=== PATIENT | female | born 1950 | race Caucasian/White ===

== ENCOUNTER 2016-08-28 13:58 | Inpatient (IN) | payer OTHER ==
[~2016-08-28] VITALS: Ht 157.5 cm; Wt 81.6 kg
[~2016-08-28 13:58] MED LIST: ACYCLOVIR400 M1 PO; ALPRAZOLAM1 MG PO; AUGMENTIN 875-1 EACH PO; AVELOX400 M1 PO; CALCIUM 600600 M1 PO; CHLORASEPTI1 LOZ/PAC PO; COLACE100 M1 PO; COZAAR 100MG T100 MG PO; DEXAMETHASONE4 M1 PO; DEXAMETHASONE4 MG PO; DILAUDID2 MG PO; FOLIC ACID 1 MG PO; GABAPENTIN300 M2 PO; HYDROCODONE/ACE1 TA1 PO; HYDROMORPHONE HY4 MG PO; HYDROXYZINE HCL10 MG PO; KEFLEX500 MG PO; MAALOX PLUS30 ML PO; MOXIFLOXACIN H400 M2 PO; NAPROXEN500 MG PO; NORVASC 10MG10 MG PO; NYSTATIN100000 UNI PO; OMEPRAZOLE40 M1 PO; OXYCODONE HCL10 M2 PO; OXYCODONE HCL10 MG PO; OXYCODONE HCL5 M1 PO; OXYCODONE HCL5 M2 PO; OXYCONTIN10 MG PO; OXYCONTIN15 M1 PO; OXYCONTIN40 M1 PO; OXYCONTIN60 M1 PO; PANCRELIPASE PO; PERCOCET 325 MG1 TA2 PO; PREDNISONE20 M1 PO; PRILOSEC 20MG C20 MG PO; PROAIR HFA8.5 GM INH; REXULTI1 MG PO; RISPERIDONE0.5 MG PO; SERTRALINE HYD100 MG PO; SYMBICORT 16010.2 GM INH; TRAMADOL HCL50 MG PO; VALIUM2 MG PO; VALIUM5 MG PO; VITAMIN B122500 MC2 PO; VITAMIN D250000 UNIT PO
--- NOTE | 2016-08-28 14:00 | NUR ---
PATIENT DIRECTLY TO EKG ALCOVE.
--- NOTE | 2016-08-28 14:07 | NUR ---
TRIAGE: 65 Y/O FEMALE PRESENTS C/O SOB INCREASING RECENTLY. ROOM AIR SPO2 85-87%. APPEARS WINDED, SOB, AND PALE. EKG COMPLETED.
--- NOTE | 2016-08-28 14:17 | NUR ---
PT BROUGHT TO RM 12 VIA WHEELCHAIR. 02 90-92% ON RA AT REST. LESS SOB AT REST BUT INCREASED WITH EXERTION. BREATH SOUNDS DIMINISHED
--- NOTE | 2016-08-28 14:28 | ED DYSPNEA/ASTHMA COMPLAINT ---
History of Present Illness General Chief Complaint: Dyspnea (COPD, CHF, Other) Stated Complaint: SOB Source: patient, family, old records Exam Limitations: no limitations Vital Signs & Intake/Output Vital Signs & Intake/Output Vital Signs Date Time Temp Pulse Resp B/P Pulse O2 O2 Flow FiO2 Ox Delivery Rate 08/28 1832 98.0 105 18 146/78 100 Room Air 08/28 1652 98.8 89 20 122/77 98 Nasal 3.0L Cannula 08/28 1455 94 Nasal 3.0L Cannula 08/28 1430 95 24 97 Nasal 3.0L Cannula 08/28 1415 91 Room Air 08/28 1406 97.9 83 16 120/85 87 Room Air Room Air Allergies Coded Allergies: morphine (ITCHING 10/03/15) Reconcile Medications Albuterol Sulfate (Proair Hfa) 8.5 GM HFA.AER.AD 2 PUF INH PRN RESPIRATORY ( Reported) Alprazolam 1 MG TABLET 1 TAB PO BID ANXIETY Amlodipine (Norvasc 10MG) 10 MG TAB 1 TAB PO DAILY BP Brexpiprazole (Rexulti) 1 MG TABLET 1 TAB PO DAILY MENTAL HEALTH (Reported) Budesonide/Formoterol Fumarate (Symbicort 160-4.5 Mcg Inhaler) 10.2 GM HFA.AER.AD 2 PUF INH BID RESPIRATORY (Reported) Calcium Carbonate (Calcium 600) 600 MG TAB 1 TAB PO DAILY SUPPLEMENT Cyanocobalamin (Vitamin B-12) (Vitamin B12) 2,500 MCG TAB.CHEW 1,000 MCG PO DAILY SUPPLEMENT (Reported) Dexamethasone 4 MG TABLET 0.5 TAB PO EOD STEROID (Reported) Reason to Stop at ADM: on iv steroids Docusate Sodium (Colace) 100 MG CAPSULE 2 CAP PO DAILY constipation (Reported ) Ergocalciferol (Vitamin D2) (Vitamin D2) 50,000 UNIT CAPSULE 1 CAP PO QWED SUPPLEMENT (Reported) Folic Acid 1 MG TABLET 1 MG PO DAILY FOLIC ACID SUPPLEMENT (Reported) Gabapentin 300 MG CAPSULE 1 CAP PO QPM TREMORS (Reported) LIPASE/PROTEASE/AMYLASE (Pancrelipase Dr 5,000 Unit Cap) [id number] CAPSULE. 1 CAP PO TID PANCREASE (Reported) Losartan (Cozaar) 100 MG TAB 1 TAB PO DAILY BP Omeprazole 40 MG CAPSULE.DR 1 CAP PO DAILY GI (Reported) Oxycodone HCl (Oxycontin) 40 MG TAB.ER.12H 1 TAB PO BID PAIN (Reported) Oxycodone HCl 5 MG CAPSULE 1 CAP PO Q6 PRN back pain (Reported) Oxycodone HCl 5 MG TABLET 5 MG PO Q6P PRN PAIN SCALE 7-10 (SEVERE) Potassium Chloride 10 MEQ TAB.ER.PRT 1 TAB PO DAILY SUPPLEMENT (Reported) SERTRALINE HCL (Sertraline Hydrochloride) 100 MG TABLET 1 TAB PO BID ANXIETY (Reported) Triage Note: TRIAGE: 65 Y/O FEMALE PRESENTS C/O SOB INCREASING RECENTLY. ROOM AIR SPO2 85-87%. APPEARS WINDED, SOB, AND PALE. EKG COMPLETED. Triage Nurses Notes Reviewed? yes Onset: Gradual Duration: getting worse Timing: recent history Severity: severe Prior Episodes/Possible Cause: frequent episodes, chronic episodes HPI: Patient is a 65-year-old female with a past medical history of multiple myeloma last chemotherapy administration was Tuesday. Patient's oncologist is Dr. Rodriguez, chronic back pain due to herniated disc, anxiety, depression, previous alcohol dependency, hypertension, pancreatitis, alcoholic hepatitis, diverticulitis, respiratory failure, anemia who is a former smoker not on home O2 who presents emergency room for concerns of dyspnea and nonproductive cough and severe dyspnea on exertion. Patient took her inhaler medications with no relief of symptoms. It is noted through old records that Dr. Thakur was concerned of a common patient of opiate-induced respiratory failure however the who is present states that no opiates were administered today however it is unknown at this time, which opiates was administered last night. is also concerned with intermittent drowsiness and increased sleep patterns. Patient denies fevers chills chest pain arm pain jaw pain nausea vomiting. Denies any new leg swelling. Patient also states that she was evaluated earlier this week by her primary care doctor in which he was concerned of pneumonia however patient did not pick up operator prescriptions for this, especially her antibiotic (JOVANY RAMIREZ) Past History Travel History Traveled to [place] past 21 day No Medical History Any Pertinent Medical History? 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 Other Medical Hx: Patient has also had a nonspecific dermatitis with topical therapy History of MRSA: No History of VRE: No History of CDIFF: No Pneumonia Vaccine: 04/08/15 Influenza Vaccine: 05/07/16 Tetanus Vaccine: 04/18/15 Surgical History Surgical History: laminectomy toe amputation bilaterally due to deformity Psychosocial History Who do you live with Spouse Services at Home None What is your primary language Mexican Tobacco Use: Refused to answer ETOH Use: denies use Illicit Drug Use: denies illicit drug use Family History Family History, If Any: Relation not specified for: *No pertinent family history Hx Contributory? No (JOVANY RAMIREZ) Review of Systems Review of Systems Constitutional: Reports: no symptoms. EENTM: Reports: no symptoms. Respiratory: Reports: see HPI, cough, short of breath. Cardiovascular: Reports: no symptoms. GI: Reports: no symptoms. Genitourinary: Reports: no symptoms. Musculoskeletal: Reports: no symptoms. Skin: Reports: no symptoms. Neurological/Psychological: Reports: no symptoms. Hematologic/Endocrine: Reports: no symptoms. Immunologic/Allergic: Reports: no symptoms. All Other Systems: Reviewed and Negative (JOVANY RAMIREZ) Physical Exam Physical Exam General Appearance: no apparent distress, alert, comfortable Respiratory: chest non-tender, no respiratory distress, BILATERAL EXPIRATORY WHEEZING Comments: HEENT: Normal EENT exam, extraocular motion intact, no nystagmus. Pupils equally round and reactive to light and accommodation. Nose is atraumatic. External auditory canal and Tympanic membranes clear. Pharynx normal. No swelling or edema. Neck: Supple, no lymphadenopathy, normal range of motion without pain or tenderness Back: Nontender, no CVA tenderness. Cardiovascular: TACHYCARDIA WITH no murmurs rubs or gallops, normal JVP Respiratory: Chest nontender. No respiratory distress.breath sounds clear to auscultation bilaterally Abdomen: Soft, nontender nondistended, no appreciable organomegaly. Normal bowel sounds. No ascites Extremity: Bilateral trace pitting edema noted to lower extremity, no calf tenderness to palpation, normal and equal pulses. Neuro: Alert oriented x3, motor sensory normal, cranial nerves II through XII grossly intact. Skin: No appreciable rash on exposed skin, skin is warm and dry. Psych: Mood and affect is normal, memory and judgment is normal. Core Measures ACS in differential dx? No Severe Sepsis Present: No Septic Shock Present: No (LALITA MERA,JOVANY) Progress Differential Diagnosis: asthma, AMI, bronchitis, costochondritis, CHF, COPD, musculoskeletal pain, pericarditis, pulmonary embolism, pneumonia, pneumothorax, rib fracture, unstable angina, OPIATE DEPENDENCY Plan of Care: Orders Procedure Date/time Status Regular Diet 08/29 B Active BASIC ELECTROLYTES PLUS BUN&CR 08/29 0600 Active Pathway - chart 08/28 1833 Active House Staff 08/28 1833 Active Patient Data 08/28 1833 Active STREP PNEUMO URINARY ANTIGEN 08/28 1833 Active LEGIONELLA URINARY ANTIGEN 08/28 1833 Active Code Status 08/28 1833 Active LACTIC ACID 08/28 1737 Active Admit to inpatient 08/28 1731 Active LOWER RESPIRATORY CULTURE 08/28 1726 Active LACTIC ACID 08/28 1437 Complete ARTERIAL BLOOD GAS (GEN) 08/28 1434 Active Telemetry/Carbide Die Maker 08/28 1434 Active BLOOD CULTURE 08/28 1434 Active URINE DRUG SCREEN FOR ER ONLY 08/28 1434 Complete URINALYSIS 08/28 1434 Complete TROPONIN LEVEL 08/28 1434 Complete MAGNESIUM 08/28 1434 Complete LIPASE 08/28 1434 Complete ETHANOL 08/28 1434 Complete D-DIMER 08/28 1434 Complete COMPREHENSIVE METABOLIC PANEL 08/28 1434 Complete CBC WITHOUT DIFFERENTIAL 08/28 1434 Complete B-TYPE NATRIURETIC PEP (BNP) 08/28 1434 Complete AMYLASE 08/28 1434 Complete EKG 08/28 1359 Active VTE Mechanical Prophylaxis 08/28 UNK Active Current Medications Sig/Greg Start time Last Medication Dose Stop Time Status Admin Ceftriaxone Sodium 1,000 MG DAILY 08/29 1000 UNVr (Rocephin) Enoxaparin Sodium 40 MG DAILY 08/29 1000 UNVr (Lovenox) Acetaminophen 650 MG Q6P PRN 08/28 1830 UNVr (Tylenol) Laboratory Tests 08/28/16 1610: Urine Opiates Screen 934.00, Methadone Screen < 40, Barbiturate Screen < 60, Ur Phencyclidine Scrn < 6.00, Amphetamines Screen < 100, U Benzodiazepines Scrn > 800 H, Urine Cocaine Screen < 50, Urine Cannabis Screen < 5.00, Urine Color YEL , Urine Clarity CLEAR, Urine pH 6.5, Ur Specific [place] 1.015, Urine Protein NEG, Urine Ketones NEG, Urine Nitrite NEG, Urine Bilirubin NEG, Urine Urobilinogen 0.2, Ur Leukocyte Esterase NEG, Ur Microscopic EXAM NOT REQUIRED, Urine Hemoglobin NEG, Urine Glucose NEG 08/28/16 1513: Anion Gap 8, Estimated GFR > 60, BUN/Creatinine Ratio 15.0, Glucose 97, Calcium 7.9 L, Magnesium 1.8, Total Bilirubin 0.3, AST 15, ALT 30, Alkaline Phosphatase 49, Troponin I < 0.01, Mnb-K-Xterznnmtki Pept 186 H, Total Protein 6.0 L, Albumin 3.6, Globulin 2.4, Albumin/Globulin Ratio 1.5, Amylase < 30 L, Lipase < 10 L, D-Dimer < 200, CBC w Diff NO MAN DIFF REQ, RBC 3.74 L, MCV 72.3 L, MCH 22.7 L, RDW 18.6 H, MPV 8.0, Gran % 86.3 H, Lymphocytes % 5.5 L, Monocytes % 6.7, Eosinophils % 1.2, Basophils % 0.3, Absolute Granulocytes 5.8, Absolute Lymphocytes 0.4 L, Absolute Monocytes 0.5, Absolute Eosinophils 0.1, Absolute Basophils 0, PUBS MCHC 31.4 L, Serum Alcohol < 10.0 08/28/16 1445: pH 7.31 L, pCO2 55 H, pO2 88, HCO3 27, ABG O2 Sat (Measured) 94.0 L, Carboxyhemoglobin 1.2 L, O2 Concentration % 3L, O2 Delivery Method NC, Phlebotomy Draw Site RIGHT RADIAL 08/28/16 1437: Lactic Acid 1.0 Microbiology 08/28 1832 URINE ROUT: Legionella Antigen - ORD 08/28 183 URINE ROUT: Streptococcus pneumoniae Antigen (M - ORD 08/28 1726 LOWER RESP: Respiratory Culture - ORD 08/28 1726 LOWER RESP: Gram Stain - ORD 08/28 1518 BLOOD: Blood Culture - RECD 08/28 151 BLOOD: Blood Culture - RECD Patient currently is in no apparent distress however does know of intermittent NODDING off episodes in which due to past medical history per admitting physician Dr. Thakur there was concern of previous admission of rest story failure due to accommodation of COPD multiple myeloma and narcotic dependency. No rest story distress however oxygen saturation with room air was noted to be 83% when sitting up and arrested position. Patient was requesting HER HOME MEDICATIONS FOR pain medications AND ANXIETY however at this time I do not feel comfortable administering narcotics/benzodiazepine the patient due to significant hypoxia and concerns of her intermittent NODDING OFF EPISODES Patient was administered 2 L of nasal cannula oxygen and had significant improvement of 95% room air Due to patient's comorbidities and concerns of hypoxia and basilar oh patient is the patient will be treated prophylactically for pneumonia sputum culture currently is pending blood culture currently is pending. I discussed disposition and plan with patient to be admitted and she agreed. (LALITA MERA,JOVANY) Diagnostic Imaging: Viewed by Me: Radiology Read, CT Scan. Radiology Impression: SEE COMMENTS Initial ED EKG: ATRIAL PACED RHYTHM 130 BPM Comments: PATIENT: YESIKA HODGES PRESENT AGE: 65 PATIENT ACCOUNT NO: [id number] : 50 LOCATION: [facility] ORDERING PHYSICIAN: JOVANY MERA SERVICE DATE: 08/28/168872 EXAM TYPE: RAD - XRY-PORTABLE CHEST XRAY EXAMINATION: XR PORTABLE CHEST CLINICAL INFORMATION: Hypoxia. COMPARISON: Prior chest radiographs, most recently 07/30/2016; CTA thorax dated 11/03/2015. TECHNIQUE: A frontal view of the chest was obtained. FINDINGS: The heart, great vessels, pulmonary vasculature an mediastinum are stable. There is a suboptimal inspiratory depth. Within the right lung field, there are persistent 2.3 cm and 1.8 cm nodular densities, not clearly accounted for by the most recent CT examination on the thorax. These are stable from recent chest radiographs. The left lung field appears clear. No pleural effusion or pneumothorax is seen. There is no acute osseous abnormality IMPRESSION: There are persistent right mid lung field nodular densities. Consider further evaluation with dedicated CT examination the thorax. PATIENT: YESIKA HODGES PRESENT AGE: 65 PATIENT ACCOUNT NO: [id number] : 50 LOCATION: ER ORDERING PHYSICIAN: JOVANY MERA SERVICE DATE: 08/28/166664 EXAM TYPE: CAT - CTA CHEST-PULMONARY EMBOLISM EXAMINATION: CT ANGIOGRAM OF THE CHEST WITH AND WITHOUT CONTRAST (CT PULMONARY ANGIOGRAM FOR PE) CLINICAL INFORMATION: Reason for Study:
Presumptive Dx: HX MM, SOB, HYPOXIA
Signs Symptoms: R/O PE
COMPARISON: CTA chest 10/26/2015, same day chest x-ray TECHNIQUE: Prior to contrast administration, noncontrast localization images were obtained. Subsequently, multidetector volumetric imaging was performed from the thoracic inlet to below the diaphragms following the administration of 94 mL Optiray 320 intravenous contrast. No contrast reaction reported Sagittal, coronal, and MIP oblique sagittal reformatted images were obtained on the CT workstation, uploaded to PACS, and reviewed. Total exam dose-length product 462.5 mGy-cm FINDINGS: QUALITY OF STUDY/CONTRAST BOLUS: Satisfactory. PULMONARY ARTERIES: No central, segmental, subsegmental pulmonary emboli. THORACIC AORTA: No aneurysm or dissection. LUNG: There is mild bronchiectasis at the lung bases. Multiple linear areas of atelectasis are present at the lung bases as well. A few vague groundglass opacities versus mosaic ventilation are present throughout the lungs. These are more prevalent in the lung bases. There is no mohini consolidation. No effusion. The airways themselves appear patent to the subsegmental level. PLEURA: No pleural effusion or pneumothorax. MEDIASTINUM: Normal heart size. Small pericardial effusion, within physiologic range. Moderate calcifications are present within the left anterior descending coronary artery. The left circumflex and right coronary arteries demonstrate minimal associated calcification. No hilar or mediastinal lymphadenopathy. No evidence of septal bowing or right heart strain. CHEST WALL/AXILLA: No axillary or internal mammary lymphadenopathy. OSSEOUS STRUCTURES: There is diffuse lucency throughout the visualized osseous structures consistent with a history of multiple myeloma. Multiple compression fractures are demonstrated throughout the thoracic spine. At least 50% narrowing is redemonstrated at the T12 level as well as the T5 level. There is no significant change in the degree of compression compared to the 10/26/2015 examination. UPPER ABDOMEN: Unremarkable. No reflux of contrast into the hepatic veins to suggest elevated right heart pressures. IMPRESSION: 1. No CT evidence for pulmonary embolism. 2. Mild mostly basilar patchy groundglass opacities. The differential diagnosis includes infectious versus inflammatory etiologies. The degree and number of the opacities is decreased compared to the 10/26/2015 examination. 3. Mild bronchiectasis. 4. Multiple compression deformities essentially similar compared to the 11/03/2015 study likely related to underlying multiple myeloma. VTE: negative (JOVANY RAMIREZ) Departure Departure Disposition: STILL A PATIENT Condition: Fair Clinical Impression Primary Impression: Respiratory failure Secondary Impressions: Benzodiazepine dependence, Opiate dependence, Pneumonia, Shortness of breath Referrals: MILAN THAKUR MD (PCP/Family) Departure Forms: Customer Survey General Discharge Information Admission Note Spoke With: MIKE EVANS MD Documentation of Exam: Documentation of any treatments & extenuating circumstances including Concerns Regarding Discharge (functional status, medication knowledge or non-compliance, living conditions, etc.) that warrant an admission rather than observation: [ Discussed patient with Dr. Evans who is covering for Dr. Thakur in which she agreed to general medicine ADMISSION FOR concerns of pneumonia respiratory failure and opiate and benzodiazepine dependency. Patient requires antibiotics, nasal cannula supplementation of oxygen, steroids, nebulizer treatments and pulmonary consultation . Outpatient treatment at this time due to comorbidities and hypoxia on initial presentation would be medically harmful.] (JOVANY RAMIREZ) PA/PROFESSOR OF COUNSELING Co-Sign Statement Statement: ED Attending supervision documentation- [X] I saw and evaluated the patient. I have also reviewed all the pertinent lab results and diagnostic results. I agree with the findings and the plan of care as documented in the PA's/PROFESSOR OF COUNSELING's documentation. [X] I have reviewed the ED Record and agree with the PA's/PROFESSOR OF COUNSELING's documentation. [] Additions or exceptions (if any) to the PAs/PROFESSOR OF COUNSELING's note and plan are summarized below: [] (NATALIYA NORRIS,KEESHA Montiel) Critical Care Note Critical Care Note Critical Care Time: 30-74 min (JOVANY RAMIREZ)
[2016-08-28] MEDS ORDERED: POTASSIUM CHLO10 ME5 PO (14:51)
--- NOTE | 2016-08-28 15:23 | NUR ---
2ND SET OF BLOOD CULTURES DRAWN AND SENT TO LAB.
[2016-08-28 15:25] LABS: ABSOLUTE BASOPHIL COUNT 0 /CUMM (0.0-0.2); ABSOLUTE EOSINOPHIL COUNT 0.1 /CUMM (0.0-0.7); ABSOLUTE GRANULOCYTE CT 5.8 /CUMM (1.4-6.5); ABSOLUTE LYMPH COUNT 0.4 /CUMM (1.2-3.4); ABSOLUTE MONOCYTE COUNT 0.5 /CUMM (0.10-0.60); BASOPHIL % 0.3 % (0.0-2.0); EOSINOPHIL % 1.2 % (0-5); MEAN CORPUSCULAR HGB 22.7 PG (27.0-31.0); MEAN CORPUSCULAR HGB CONC 31.4 G/DL (33.0-37.0); MEAN CORPUSCULAR VOLUME 72.3 FL (81.0-99.0); PLATELET COUNT 192 /CUMM (130-400); RBC DISTRIBUTION WIDTH 18.6 % (11.5-14.5); RED BLOOD CELL CT 3.74 /CUMM (4.20-5.40); WHITE BLOOD CELL COUNT 6.8 /CUMM (4.8-10.8)
--- NOTE | 2016-08-28 15:40 | RADIOLOGY REPORT ---
EXAMINATION: XR PORTABLE CHEST CLINICAL INFORMATION: Hypoxia. COMPARISON: Prior chest radiographs, most recently 07/30/2016; CTA thorax dated 11/03/2015. TECHNIQUE: A frontal view of the chest was obtained. FINDINGS: The heart, great vessels, pulmonary vasculature an mediastinum are stable. There is a suboptimal inspiratory depth. Within the right lung field, there are persistent 2.3 cm and 1.8 cm nodular densities, not clearly accounted for by the most recent CT examination on the thorax. These are stable from recent chest radiographs. The left lung field appears clear. No pleural effusion or pneumothorax is seen. There is no acute osseous abnormality IMPRESSION: There are persistent right mid lung field nodular densities. Consider further evaluation with dedicated CT examination the thorax.
[2016-08-28 15:41] LABS: GRANULOCYTE % 86.3 % (42.2-75.2)
--- NOTE | 2016-08-28 16:10 | NUR ---
PT TO AND FROM COMMODE FROM STRETCHER INDEPENDENTLY BUT WITH OBSERVATION
--- NOTE | 2016-08-28 16:13 | NUR ---
URINE TRIO SENT TO LAB.
--- NOTE | 2016-08-28 16:32 | NUR ---
PT TO CT VIA STRETCHER
--- NOTE | 2016-08-28 17:01 | NUR ---
PT LETHARGIC, QUICKLY FALLS ASLEEP BUT IS EASILY AROUSABLE. AVSS. AWAITING RESULTS
--- NOTE | 2016-08-28 17:19 | CT SCAN REPORT ---
EXAMINATION: CT ANGIOGRAM OF THE CHEST WITH AND WITHOUT CONTRAST (CT PULMONARY ANGIOGRAM FOR PE) CLINICAL INFORMATION: Reason for Study:
Presumptive Dx: HX MM, SOB, HYPOXIA
Signs Symptoms: R/O PE
COMPARISON: CTA chest 10/26/2015, same day chest x-ray TECHNIQUE: Prior to contrast administration, noncontrast localization images were obtained. Subsequently, multidetector volumetric imaging was performed from the thoracic inlet to below the diaphragms following the administration of 94 mL Optiray 320 intravenous contrast. No contrast reaction reported Sagittal, coronal, and MIP oblique sagittal reformatted images were obtained on the CT workstation, uploaded to PACS, and reviewed. Total exam dose-length product 462.5 mGy-cm FINDINGS: QUALITY OF STUDY/CONTRAST BOLUS: Satisfactory. PULMONARY ARTERIES: No central, segmental, subsegmental pulmonary emboli. THORACIC AORTA: No aneurysm or dissection. LUNG: There is mild bronchiectasis at the lung bases. Multiple linear areas of atelectasis are present at the lung bases as well. A few vague groundglass opacities versus mosaic ventilation are present throughout the lungs. These are more prevalent in the lung bases. There is no mohini consolidation. No effusion. The airways themselves appear patent to the subsegmental level. PLEURA: No pleural effusion or pneumothorax. MEDIASTINUM: Normal heart size. Small pericardial effusion, within physiologic range. Moderate calcifications are present within the left anterior descending coronary artery. The left circumflex and right coronary arteries demonstrate minimal associated calcification. No hilar or mediastinal lymphadenopathy. No evidence of septal bowing or right heart strain. CHEST WALL/AXILLA: No axillary or internal mammary lymphadenopathy. OSSEOUS STRUCTURES: There is diffuse lucency throughout the visualized osseous structures consistent with a history of multiple myeloma. Multiple compression fractures are demonstrated throughout the thoracic spine. At least 50% narrowing is redemonstrated at the T12 level as well as the T5 level. There is no significant change in the degree of compression compared to the 10/26/2015 examination. UPPER ABDOMEN: Unremarkable. No reflux of contrast into the hepatic veins to suggest elevated right heart pressures. IMPRESSION: 1. No CT evidence for pulmonary embolism. 2. Mild mostly basilar patchy groundglass opacities. The differential diagnosis includes infectious versus inflammatory etiologies. The degree and number of the opacities is decreased compared to the 10/26/2015 examination. 3. Mild bronchiectasis. 4. Multiple compression deformities essentially similar compared to the 11/03/2015 study likely related to underlying multiple myeloma. VTE: negative
--- NOTE | 2016-08-28 18:38 | NUR ---
HOUSE STAFF AT BEDSIDE
--- NOTE | 2016-08-28 18:47 | NUR ---
PT IS GOING TO ROOM 215-2.
--- NOTE | 2016-08-28 19:05 | NUR ---
PT NOW GOING TO ROOM 209-1
--- NOTE | 2016-08-28 19:14 | History & Physical ---
See Addendum KENDRICK MENG 08/28/161912: General Information and HPI MD Statement: I have seen and personally examined YESIKA HODGES and documented this H&P. The patient is a 65 year old F who presented with a patient stated chief complaint of shortness of breath, cough Source of Information: patient History of Present Illness: Ms Hodges is a 65-year-old woman who was known to be in her usual state of health until 2 days ago. She has a past medical history of multiple myeloma on chemotherapy (MVV), COPD (not on home oxygen) alcoholic hepatitis, chronic back pain-herniated disc, hypertension, pancreatitis, diverticulitis. She came in to [facility] with a chief concern of shortness of breath and cough 2 days. As per the patient, she started developing shortness of breath in the last 2 days, acute, worsened to a point where she was short of breath doing her daily chores; no orthopnea or PND. Has been using inhalers with no relief in the last 2 days. Also was concerned about cough, productive, intermittent. No fever, sick contacts, chest pain or palpitations. No abdominal pain or bowel or bladder incontinence. Oxygen saturation dropped to 85-87% on room air at the time of admission. Recent admission to [facility] for acute exacerbation of COPD. Allergies/Medications Allergies: Coded Allergies: morphine (ITCHING 10/03/15) Home Med list Albuterol Sulfate (Proair Hfa) 8.5 GM HFA.AER.AD 2 PUF INH PRN RESPIRATORY ( Reported) Alprazolam 1 MG TABLET 1 TAB PO BID ANXIETY Amlodipine (Norvasc 10MG) 10 MG TAB 1 TAB PO DAILY BP Brexpiprazole (Rexulti) 1 MG TABLET 1 TAB PO DAILY MENTAL HEALTH (Reported) Budesonide/Formoterol Fumarate (Symbicort 160-4.5 Mcg Inhaler) 10.2 GM HFA.AER.AD 2 PUF INH BID RESPIRATORY (Reported) Calcium Carbonate (Calcium 600) 600 MG TAB 1 TAB PO DAILY SUPPLEMENT Cyanocobalamin (Vitamin B-12) (Vitamin B12) 2,500 MCG TAB.CHEW 1,000 MCG PO DAILY SUPPLEMENT (Reported) Dexamethasone 4 MG TABLET 0.5 TAB PO EOD STEROID (Reported) Reason to Stop at ADM: on iv steroids Docusate Sodium (Colace) 100 MG CAPSULE 2 CAP PO DAILY constipation (Reported ) Ergocalciferol (Vitamin D2) (Vitamin D2) 50,000 UNIT CAPSULE 1 CAP PO QWED SUPPLEMENT (Reported) Folic Acid 1 MG TABLET 1 MG PO DAILY FOLIC ACID SUPPLEMENT (Reported) Gabapentin 300 MG CAPSULE 1 CAP PO QPM TREMORS (Reported) LIPASE/PROTEASE/AMYLASE (Pancrelipase 5,000 Unit Cap) [id number] CAPSULE.DR 1 CAP PO TID PANCREASE (Reported) Losartan (Cozaar) 100 MG TAB 1 TAB PO DAILY BP Omeprazole 40 MG CAPSULE.DR 1 CAP PO DAILY GI (Reported) Oxycodone HCl (Oxycontin) 40 MG TAB.ER.12H 1 TAB PO BID PAIN (Reported) Oxycodone HCl 5 MG CAPSULE 1 CAP PO Q6 PRN back pain (Reported) Oxycodone HCl 5 MG TABLET 5 MG PO Q6P PRN PAIN SCALE 7-10 (SEVERE) Potassium Chloride 10 MEQ TAB.ER.PRT 1 TAB PO DAILY SUPPLEMENT (Reported) SERTRALINE HCL (Sertraline Hydrochloride) 100 MG TABLET 1 TAB PO BID ANXIETY (Reported) Past History Travel History Traveled to [place] past 21 day No Medical History Neurological: NONE EENT: NONE Cardiovascular: NONE Respiratory: NONE Gastrointestinal: pancreatitis, DIVERTICULITIS CHRONIC DIARRHEA INGUINAL HERNIA SBO Hepatic: ALCHOLIC HEPATITIS Renal: NONE Musculoskeletal: chronic back pain HERNIATED LUMBAR DISC POLYCYSTITIS Psychiatric: anxiety, depression, ALCOHOLISM Endocrine: NONE Blood Disorders: NONE 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 no Functional Ability ADLs Independent: dressing, eating, toileting, bathing. Ambulation: independent IADLs Independent: shopping, housework, finances, food prep, telephone, transportation , medication admin. Review of Systems Review of Systems Constitutional: Denies: chills, fever. EENTM: Denies: visual changes. Cardiovascular: Denies: edema. Respiratory: Denies: cough, short of breath. GI: Denies: melena, nausea. Genitourinary: Denies: dysuria. Musculoskeletal: Denies: back pain, joint pain. Skin: Denies: change in skin color. Neurological/Psychological: Denies: anxiety. Hematologic/Endocrine: Denies: bruising. Exam & Diagnostic Data Last 24 Hrs of Vital Signs/I&O Vital Signs Date Time Temp Pulse Resp B/P Pulse O2 O2 Flow FiO2 Ox Delivery Rate 08/28 2355 97.9 96 18 126/82 94 Room Air 08/28 2112 97.8 97 18 120/90 95 08/28 1945 98.3 97 18 125/76 99 Room Air 08/28 1832 98.0 105 18 146/78 100 Room Air 08/28 1652 98.8 89 20 122/77 98 Nasal 3.0L Cannula 08/28 1455 94 Nasal 3.0L Cannula 08/28 1430 95 24 97 Nasal 3.0L Cannula 08/28 1415 91 Room Air 08/28 1406 97.9 83 16 120/85 87 Room Air Room Air Intake & Output 08/28 1600 08/28 0800 08/28 0000 Intake Total Output Total Balance Patient 170 lb Weight Physical Exam General Appearance Alert, Oriented X3, Cooperative, No Acute Distress Skin No Breakdown HEENT PERRLA Neck Supple, No JVD, No thryomegaly Lymphatic Cervical nl Cardiovascular Normal S1, Normal S2 Lungs bilateral crackles, mild Decreased air entry bilaterally Abdomen Normal Bowel Sounds, Soft, No Tenderness Neurological Normal Gait, Normal Speech, Strength at 5/5 X4 Ext, Normal Tone, Sensation Intact, Cranial Nerves 3-12 NL Extremities No Clubbing, No Cyanosis, No Edema Vascular Pulses Symmetrical Last 24 Hrs of Labs/Guzman: Laboratory Tests 08/28/16 1737: Lactic Acid Cancelled 08/28/16 1610: Urine Opiates Screen 934.00, Methadone Screen < 40, Barbiturate Screen < 60, Ur Phencyclidine Scrn < 6.00, Amphetamines Screen < 100, U Benzodiazepines Scrn > 800 H, Urine Cocaine Screen < 50, Urine Cannabis Screen < 5.00, Urine Color YEL , Urine Clarity CLEAR, Urine pH 6.5, Ur Specific [place] 1.015, Urine Protein NEG, Urine Ketones NEG, Urine Nitrite NEG, Urine Bilirubin NEG, Urine Urobilinogen 0.2, Ur Leukocyte Esterase NEG, Ur Microscopic EXAM NOT REQUIRED, Urine Hemoglobin NEG, Urine Glucose NEG 08/28/16 1513: Anion Gap 8, Estimated GFR > 60, BUN/Creatinine Ratio 15.0, Glucose 97, Calcium 7.9 L, Magnesium 1.8, Total Bilirubin 0.3, AST 15, ALT 30, Alkaline Phosphatase 49, Troponin I < 0.01, Ssl-H-[id number] Pept 186 H, Total Protein 6.0 L, Albumin 3.6, Globulin 2.4, Albumin/Globulin Ratio 1.5, Amylase < 30 L, Lipase < 10 L, D-Dimer < 200, CBC w Diff NO MAN DIFF REQ, RBC 3.74 L, MCV 72.3 L, MCH 22.7 L, RDW 18.6 H, MPV 8.0, Gran % 86.3 H, Lymphocytes % 5.5 L, Monocytes % 6.7, Eosinophils % 1.2, Basophils % 0.3, Absolute Granulocytes 5.8, Absolute Lymphocytes 0.4 L, Absolute Monocytes 0.5, Absolute Eosinophils 0.1, Absolute Basophils 0, PUBS MCHC 31.4 L, Serum Alcohol < 10.0 08/28/16 1445: pH 7.31 L, pCO2 55 H, pO2 88, HCO3 27, ABG O2 Sat (Measured) 94.0 L, Carboxyhemoglobin 1.2 L, O2 Concentration % 3L, O2 Delivery Method NC, Phlebotomy Draw Site RIGHT RADIAL 08/28/16 1437: Lactic Acid 1.0 Microbiology 08/28 1726 LOWER RESP: Respiratory Culture - COLB 08/28 1726 LOWER RESP: Gram Stain - COLB 08/28 1610 URINE ROUT: Legionella Antigen - COMP 08/28 161 URINE ROUT: Streptococcus pneumoniae Antigen (M - COMP 08/28 1518 BLOOD: Blood Culture - RECD 08/28 151 BLOOD: Blood Culture - RECD Diagnostic Data EKG Results Pacemaker; heart rate 130, tachycardia Assessment/Plan Assessment: She is an older lady with a past medical history of COPD, multiple myeloma on chemotherapy (immunosuppression), is being evaluated for shortness of breath and cough. At the time of admission, temperature 98.8, pulse rate 89, respiratory 20, blood pressure 122/77, oxygen saturation 98% on 3 L nasal cannula. Laboratory findings indicated WBC 6.8, hemoglobin 8.5, hematocrit 27 (baseline hemoglobin 9.6), MCV 72, normal electrolytes-sodium 132, potassium 4.0, bicarbonate 28, BUN 6, serum creatinine 0.4, calcium 7.9, normal AST and ALT. ProBNP 186, urinalysis-clear. Radiological findings-chest x-ray indicated persistence right nodular densities. CT abdomen did not reveal any embolism. Bibasilar groundglass opacities- patchy. With mild bronchiectasis were seen. Compression deformities suggestive of multiple myeloma were seen. EKG revealed pacemaker spikes with heart rate 130 Differential diagnoses #1 community-acquired pneumonia #2 COPD exacerbation Below is the problem list and plan: #1 shortness of breath, cough-likely due to pneumonia. Patient has been started on ceftriaxone and azithromycin. Continue the antibiotics. Lower respiratory cultures, blood cultures, Legionella and strep pneumo antigen to be obtained. Oxygen as needed. Immunosuppression likely due to chemotherapy, might have resulted in pneumonia. Or, she likely wasnt able to mount an immune response. No records of recent chemotherapy are available at this time. Monitor WBC closely. #2 multiple myeloma-serum calcium 7.9, normal kidney function. Contact Dr. moyer's office for further advice on chemotherapy. Pain management with opiates. #3 history of pancreatitis and pancreatic insufficiency-continue Zenpep. #3 DVT prophylaxis-Lovenox. As Ranked By This Provider Problem List: 1. Shortness of breath 2. Hypoxia 3. COPD with exacerbation Core Measures/Miscellaneous Acute Coronary Syndrome ACS Diagnosis: No Cerebrovascular Accident CVA/TIA Diagnosis: No Congestive Heart Failure CHF Diagnosis: No Venous Thromboembolism VTE Risk Factors: Acute medical illness, Age > 40 VTE Prophylaxis Ordered Inpt: Pharm- Lovenox No [facility] VTE prophylaxis d/t: No contraindications No VTE Pharm Prophylaxis d/t: No contraindications VTE Diagnosis: No VTE Type: NONE VTE Confirmed by (Test): NONE Severe Sepsis Severe Sepsis Present: No Septic Shock Septic Shock Present: No Miscellaneous Documentation Attending Case Discussed With: MIKE GLORIA MD Primary Care Physician: MILAN THAKUR MD Patient sees these Specialists Dr. Licea Level of Patient Care: General Medicine BAY ODONNELL MD 08/29/16 0016: Resident Review Statement Resident Statement: examined this patient, discussed with editing internship, agreed with editing internship Other Findings: Ms Hodges is a 65-year-old female with a past medical history of COPD, not on home oxygen, multiple myeloma currently getting chemotherapy every week, history of acute on chronic respiratory failure secondary due to narcotic overdose, chronic pain due to herniated disc on narcotics, anxiety and panic attacks, alcoholic hepatitis, pancreatic insufficiency, hypertension, diverticulitis, dermatitis, presents to the ED with worsening shortness of breath on exertion and cough productive of yellowish sputum for the past few days. She denies any sick contacts or travel history. She denies any chest pain, fever, blood tinged sputum, abdominal pain, or recent weight loss. She was admitted last july for similar symptoms and was managed for CAP and COPD exacerbation. she reports that she has not felt up to her baseline since her discharge in july but reports that her symptoms had initially resolved then returned in the lst few days. She does not use home O2 at baseline but says sypmtoms were not improving on her inhalers. O/E-She is drowsy but arousable,no wheezing or crackles heard but she has markedly decreased air entry bilaterally Assessment: 1. Chronic Hypercarbic resp. failure 2. Persistent Community acquired pneumonia 2. COPD not in acute exacerbation 3. Multiple myeloma on chemotherapy every Tuesday 4. Mild Hyponatremia 5. History of acute hypoxic respiratory failure secondary to narcotic overdose 6. Chronic back pain due to herniated disc on narcotics 7. History of depression and anxiety 8. Chronic anemia, microcytic 9. Pancreatic Insufficiency Plan: Admit to general med check blood culture and sputum culture check strep and Legionella urine antigen Start on ceftriaxone and azithromycin for now; wacth for fevers/WBC and possibly expand coverage for HCAP. She is currently on chemotherapy which may account for her recurrent infections Will start on low-dose IV steroids and taper to PO steroids Hold her home dose of dexamethasone 0.5 mg every other day which she takes for her MM chemotherapy Give O2 supplementation if needed TRC Nebs Continue Symbicort Monitor labs daily for hyponatremia and Anemia (H&H is 8.5&27) Courtesy call to Dr. Moyer Will hold her long acting opiods tonight due to her increased drowsiness; conttinue her breakthrough short acting steroids and re-evaluate in am. Her opiod dose may need to be evaluated and cut down as this may be adding to her increased respiratory depression. Hold her anxiety and depression meds for now due to their sedative potential Continue Pancrealipase Low fat diet- due to her pancreatic insufficiency Pain pathway: The patient is on OxyContin and oxycodone, watch for sedation DVT prophylaxis: Subcutaneous Lovenox DNR/DNI
--- NOTE | 2016-08-28 20:12 | Admission Certification ---
Admission Certification Certification Statement - As attending physician, I certify that at the time of - admission, based on clinical presentation, severity of - symptoms, need for further diagnostic testing and - therapeutic interventions, and risk of adverse outcomes - without in-hospital treatment, in my clinical assessment, - this patient requires an acute hospital stay for a minimum - of two nights or longer. I have also considered psychsocial - factors such as support system, advanced age, financial - issues, cognitive issues, and failed out-patient treatments, - past re-admission history, safety of patient, and lack of - compliance as applicable. Specific rationale supporting this admission is: Increased shortness of breath, hypoxemia exacerbation of COPD, possible pneumonia and respiratory failure
--- NOTE | 2016-08-28 20:14 | PN- Att Addend ---
Attending Addendum Attending Brief Note 65-year-old white female history of COPD seen with a few days of increased shortness of breath comes to the ER hypoxemic on workup on x-rays is a possible pneumonia but she will be admitted to have antibiotic therapy, IV steroids and monitor her O2 sats with respiratory therapy present in no respiratory distress. Case discussed with resident. Patient examined Laboratory Tests 08/28 08/28 1737 1610 Chemistry Lactic Acid Cancelled Toxicology Urine Opiates Screen (>2000 NG/ML) 934.00 Methadone Screen (>300 NG/ML) < 40 Barbiturate Screen (>200 NG/ML) < 60 Ur Phencyclidine Scrn (>25 NG/ML) < 6.00 Amphetamines Screen (>1000 NG/ML) < 100 U Benzodiazepines Scrn (>200 NG/ML) > 800 H Urine Cocaine Screen (>300 NG/ML) < 50 Urine Cannabis Screen (>50 NG/ML) < 5.00 Urines Urine Color (YEL,AMB,STR) YEL Urine Clarity (CLEAR) CLEAR Urine pH (5.0 - 8.0) 6.5 Ur Specific [place] (1.001 - 1.035) 1.015 Urine Protein (NEG,<30 MG/DL) NEG Urine Ketones (NEG) NEG Urine Nitrite (NEG) NEG Urine Bilirubin (NEG) NEG Urine Urobilinogen (0.1 - 1.0 EU/dl) 0.2 Ur Leukocyte Esterase (NEG) NEG Ur Microscopic EXAM NOT REQUIRED Urine Hemoglobin (NEG) NEG Urine Glucose (N MG/DL) NEG 08/28 08/28 08/28 1513 1445 1437 Blood Gas pH (7.35 - 7.45 PH) 7.31 L pCO2 (35 - 45 TORR) 55 H pO2 (80 - 100 TORR) 88 HCO3 (21 - 28 MEQ/L) 27 ABG O2 Sat (Measured) (>96.0 %) 94.0 L Carboxyhemoglobin (1.5 - 5.0 %) 1.2 L O2 Concentration % 3L O2 Delivery Method NC Chemistry Sodium (137 - 145 mmol/L) 132 L Potassium (3.5 - 5.1 mmol/L) 4.0 Chloride (98 - 107 mmol/L) 96 L Carbon Dioxide (22 - 30 mmol/L) 28 Anion Gap (5 - 16) 8 BUN (7 - 17 mg/dL) 6 L Creatinine (0.5 - 1.0 mg/dL) 0.4 L Estimated GFR (>60 ml/min) > 60 BUN/Creatinine Ratio (7 - 25 %) 15.0 Glucose (65 - 99 mg/dL) 97 Lactic Acid (0.7 - 2.1 mmol/L) 1.0 Calcium (8.4 - 10.2 mg/dL) 7.9 L Magnesium (1.6 - 2.3 mg/dL) 1.8 Total Bilirubin (0.2 - 1.3 mg/dL) 0.3 AST (14 - 36 U/L) 15 ALT (9 - 52 U/L) 30 Alkaline Phosphatase (<127 U/L) 49 Troponin I (< 0.11 ng/ml) < 0.01 [id number] Pept (<125 pg/mL) 186 H Total Protein (6.3 - 8.2 g/dL) 6.0 L Albumin (3.5 - 5.0 g/dL) 3.6 Globulin (1.9 - 4.2 gm/dL) 2.4 Albumin/Globulin Ratio (1.1 - 2.2 %) 1.5 Amylase (30 - 110 U/L) < 30 L Lipase (23 - 300 U/L) < 10 L Coagulation D-Dimer (70 - 232 ng/ml) < 200 Hematology CBC w Diff NO MAN DIFF REQ WBC (4.8 - 10.8 /CUMM) 6.8 RBC (4.20 - 5.40 /CUMM) 3.74 L Hgb (12.0 - 16.0 G/DL) 8.5 L Hct (37 - 47 %) 27.0 L MCV (81.0 - 99.0 FL) 72.3 L MCH (27.0 - 31.0 PG) 22.7 L RDW (11.5 - 14.5 %) 18.6 H Plt Count (130 - 400 /CUMM) 192 MPV (7.4 - 10.4 FL) 8.0 Gran % (42.2 - 75.2 %) 86.3 H Lymphocytes % (20.5 - 51.1 %) 5.5 L Monocytes % (1.7 - 9.3 %) 6.7 Eosinophils % (0 - 5 %) 1.2 Basophils % (0.0 - 2.0 %) 0.3 Absolute Granulocytes (1.4 - 6.5 /CUMM) 5.8 Absolute Lymphocytes (1.2 - 3.4 /CUMM) 0.4 L Absolute Monocytes (0.10 - 0.60 /CUMM) 0.5 Absolute Eosinophils (0.0 - 0.7 /CUMM) 0.1 Absolute Basophils (0.0 - 0.2 /CUMM) 0 PUBS MCHC (33.0 - 37.0 G/DL) 31.4 L Miscellaneous Phlebotomy Draw Site RIGHT RADIAL Toxicology Serum Alcohol (<10 MG/DL) < 10.0
[2016-08-28 21:12] VITALS: BP 120/90
--- NOTE | 2016-08-28 22:42 | NUR ---
PT ARRIVED TO FLOOR @ 2029 VIA WC WITH DISTRIBUTION STAFF. A/OX3, RA, VSS. PAIN 01/15 (SEE EMAR) ALPS PER ORDER, CALL [facility], EXPLAINED USE,WILL CONTINUE TO MONITOR
[2016-08-28 23:55] VITALS: BP 126/82
--- NOTE | 2016-08-29 06:19 | NUR ---
IV SOLUMEDROL 40 MG AND BRENDA 5MG WERE GIVEN @ 0605. THE COMPUTER SHUT DOWN DURING ADMINISTRATION. TRIED TO DOCUMENT AGAIN BUT THE SYSTEM WON'T LET ME SHOWING THE MESSAGE "VIDYA MAC (THE FOUNDATION DIRECTOR) IS DOCUMENTING ON DEVICE CART63.3 " THE INCOMING RN WILL BE MADE AWARE.
--- NOTE | 2016-08-29 06:47 | PN- Housestaff ---
Subjective Follow-up For: 1. cap Subjective: Ms Camargo was comfortable. Started that she slept well last night, and breathing improved. Remained afebrile overnight. Review of Systems Constitutional: Reports: see HPI. Objective Last 24 Hrs of Vital Signs/I&O Vital Signs Date Time Temp Pulse Resp B/P Pulse O2 O2 Flow FiO2 Ox Delivery Rate 08/28 2355 97.9 96 18 126/82 94 Room Air 08/28 2112 97.8 97 18 120/90 95 08/28 1945 98.3 97 18 125/76 99 Room Air 08/28 1832 98.0 105 18 146/78 100 Room Air 08/28 1652 98.8 89 20 122/77 98 Nasal 3.0L Cannula 08/28 1455 94 Nasal 3.0L Cannula 08/28 1430 95 24 97 Nasal 3.0L Cannula 08/28 1415 91 Room Air 08/28 1406 97.9 83 16 120/85 87 Room Air Room Air Intake & Output 08/29 0800 08/29 0000 08/28 1600 Intake Total 240 480 Output Total Balance 240 480 Intake, Oral 240 480 Patient 180 lb 170 lb Weight Physical Exam General Appearance: No Acute Distress Other Physical Findings: General Exam: AAOx3, No acute distress, Skin: No rashes, no breakdown HEENT: PERRLA, EOMI Neck: Supple, No JVD No cervical lymphadenopathy CVS: Reg Rate, Normal S1,S2, No MGR Resp: Normal air entry, no ronchi/rales Abdomen: Soft, no tenderness, Normal Bowel Sounds, folry catheter in place. good urine output Neuro: Normal Speech, Strength 5/5 b/l x 4 extremities, Sensation intact, CN III -XII NL, Reflexes 2+ Extremities: No cyanosis, pedal edema Current Medications: Current Medications Sig/Greg Start time Last Medication Dose Route Stop Time Status Admin Acetaminophen 650 MG Q6P PRN 08/28 1830 AC 08/29 PO 0059 Albuterol Sulfate 3 ML ONCE ONE 08/28 1445 DC 08/28 INH 08/28 1446 1454 Amlodipine Besylate 10 MG DAILY 08/29 1000 AC PO Azithromycin 500 MG Q24H 08/28 1830 AC 08/28 Sodium Chloride 250 ML IV 1830 Azithromycin 500 MG ONCE ONE 08/28 1730 DC Dextrose/Water 250 ML IV 08/28 1829 Budesonide/ 2 PUF BID 08/28 220 AC 08/29 Formoterol Fumarate INH 0055 Ceftriaxone Sodium 1,000 MG DAILY@1830 08/29 1830 AC IV Ceftriaxone Sodium 0 .STK-MED ONE 08/28 1756 DC .ROUTE Ceftriaxone Sodium 1,000 MG ONCE ONE 08/28 1730 DC 08/28 IV 08/28 1731 1824 Docusate Sodium 200 MG DAILY 08/28 2330 AC 08/29 PO 0054 Enoxaparin Sodium 40 MG DAILY 08/29 1000 AC SC Gabapentin 300 MG QPM 08/28 220 AC 08/29 PO 0054 Ipratropium [place] 2.5 ML ONCE ONE 08/28 1445 DC 08/28 INH 08/28 1446 1454 Lipase/Protease/ 1 CAP TID 08/28 2199 08/29 Amylase PO 0054 Methylprednisolone 40 MG Q8 08/28 2199 AC 08/29 IV 0054 Methylprednisolone 0 .STK-MED ONE 08/28 1526 DC .ROUTE Methylprednisolone 125 MG ONCE ONE 08/28 1445 DC 08/28 IV 08/28 1446 1531 Omeprazole 40 MG DAILY AC 08/29 0700 AC 08/29 PO 0618 Oxycodone HCl 5 MG Q6P PRN 08/28 2115 AC 08/28 PO 2144 Last 24 Hrs of Lab/[place] Results Last 24 Hrs of Labs/Mics: Laboratory Tests 08/28/16 1737: Lactic Acid Cancelled 08/28/16 1610: Urine Opiates Screen 934.00, Methadone Screen < 40, Barbiturate Screen < 60, Ur Phencyclidine Scrn < 6.00, Amphetamines Screen < 100, U Benzodiazepines Scrn > 800 H, Urine Cocaine Screen < 50, Urine Cannabis Screen < 5.00, Urine Color YEL , Urine Clarity CLEAR, Urine pH 6.5, Ur Specific [place] 1.015, Urine Protein NEG, Urine Ketones NEG, Urine Nitrite NEG, Urine Bilirubin NEG, Urine Urobilinogen 0.2, Ur Leukocyte Esterase NEG, Ur Microscopic EXAM NOT REQUIRED, Urine Hemoglobin NEG, Urine Glucose NEG 08/28/16 1513: Anion Gap 8, Estimated GFR > 60, BUN/Creatinine Ratio 15.0, Glucose 97, Calcium 7.9 L, Magnesium 1.8, Total Bilirubin 0.3, AST 15, ALT 30, Alkaline Phosphatase 49, Troponin I < 0.01, Cug-B-Kasdntmenip Pept 186 H, Total Protein 6.0 L, Albumin 3.6, Globulin 2.4, Albumin/Globulin Ratio 1.5, Amylase < 30 L, Lipase < 10 L, D-Dimer < 200, CBC w Diff NO MAN DIFF REQ, RBC 3.74 L, MCV 72.3 L, MCH 22.7 L, RDW 18.6 H, MPV 8.0, Gran % 86.3 H, Lymphocytes % 5.5 L, Monocytes % 6.7, Eosinophils % 1.2, Basophils % 0.3, Absolute Granulocytes 5.8, Absolute Lymphocytes 0.4 L, Absolute Monocytes 0.5, Absolute Eosinophils 0.1, Absolute Basophils 0, PUBS MCHC 31.4 L, Serum Alcohol < 10.0 08/28/16 1445: pH 7.31 L, pCO2 55 H, pO2 88, HCO3 27, ABG O2 Sat (Measured) 94.0 L, Carboxyhemoglobin 1.2 L, O2 Concentration % 3L, O2 Delivery Method NC, Phlebotomy Draw Site RIGHT RADIAL 08/28/16 1437: Lactic Acid 1.0 Microbiology 08/28 1726 LOWER RESP: Respiratory Culture - COLB 08/28 1726 LOWER RESP: Gram Stain - COLB 08/28 1610 URINE ROUT: Legionella Antigen - COMP 08/28 1610 URINE ROUT: Streptococcus pneumoniae Antigen (M - COMP 08/28 1518 BLOOD: Blood Culture - RECD 08/28 1513 BLOOD: Blood Culture - RECD Assessment/Plan Assessment: Ms Camargo is a past medical history of multiple myeloma on chemotherapy ( ? CyBorD ), COPD (not on home oxygen) alcoholic hepatitis, chronic back pain- herniated disc, hypertension, pancreatitis, diverticulitis. She was admitted to [place] for evaluation of shortness of breath and cough 2 days. At the time of admission, temperature 98.8, pulse rate 89, respiratory 20, blood pressure 122/77, oxygen saturation 98% on 3 L nasal cannula. Laboratory findings indicated WBC 6.8, hemoglobin 8.5, hematocrit 27 (baseline hemoglobin 9.6), MCV 72, normal electrolytes-sodium 132, potassium 4.0, bicarbonate 28, BUN 6, serum creatinine 0.4, calcium 7.9, normal AST and ALT. ProBNP 186, urinalysis-clear. Radiological findings-chest x-ray indicated persistence right nodular densities. CT abdomen did not reveal any embolism. Bibasilar groundglass opacities- patchy. With mild bronchiectasis were seen. Compression deformities suggestive of multiple myeloma were seen. EKG revealed pacemaker spikes with heart rate 130 Differential diagnoses #1 community-acquired pneumonia #2 COPD exacerbation Below is the problem list and plan: #1 shortness of breath, cough-likely due to pneumonia. Patient has been started on ceftriaxone and azithromycin. Continue the antibiotics. Lower respiratory cultures(pending), blood cultures x2 negative so far, Legionella and strep pneumo antigen are negative. Oxygen as needed. Steroids for management of COPD exacerbation. Immunosuppression likely due to chemotherapy, might have resulted in pneumonia. Or, she likely wasnt able to mount an immune response. No records of recent chemotherapy are available at this time. Monitor WBC closely. WBC 6.8- ->3.9. Reason unknown at this time. Hematology consult for review of records. May have to consider neupogen, although there is no mortality benefit, as per new studies. Defer the decision to the tank car loader for management. #2 multiple myeloma-serum calcium 7.9, normal kidney function. Contact Dr. moyer's office for further advice on chemotherapy. Pain management with opiates w/ decreased doses. #3 history of pancreatitis and pancreatic insufficiency-continue Zenpep. #3 DVT prophylaxis-Lovenox. Problem List: 1. Shortness of breath 2. Opiate dependence 3. Community acquired pneumonia 4. COPD with exacerbation Pain Ratin Pain Location: back Pain Goal: Pain 4 or less Pain Plan: oxycodone Tomorrow's Labs & Rationales: cbc bep
[2016-08-29 08:01] VITALS: BP 134/84
[2016-08-29 10:25] LABS: ABSOLUTE BASOPHIL COUNT 0 /CUMM (0.0-0.2); ABSOLUTE EOSINOPHIL COUNT 0 /CUMM (0.0-0.7); ABSOLUTE GRANULOCYTE CT 3.6 /CUMM (1.4-6.5); ABSOLUTE LYMPH COUNT 0.2 /CUMM (1.2-3.4); ABSOLUTE MONOCYTE COUNT 0.1 /CUMM (0.10-0.60); BASOPHIL % 0 % (0.0-2.0); EOSINOPHIL % 0.1 % (0-5); GRANULOCYTE % 93.5 % (42.2-75.2); HEMATOCRIT 26.9 % (37-47); MEAN CORPUSCULAR HGB CONC 32.2 G/DL (33.0-37.0); MEAN CORPUSCULAR VOLUME 71.4 FL (81.0-99.0); PLATELET COUNT 167 /CUMM (130-400); RBC DISTRIBUTION WIDTH 18.1 % (11.5-14.5); RED BLOOD CELL CT 3.76 /CUMM (4.20-5.40); WHITE BLOOD CELL COUNT 3.9 /CUMM (4.8-10.8)
--- NOTE | 2016-08-29 15:57 | PN- Att Addend ---
Attending Addendum Attending Brief Note Covering attending note Patient feeling much better at feels very anxious and jittery face a little flushed, might be related to the IV steroids but will start tapering down. A febrile. Lungs are clear with daughters at the bedside patient will be reevaluated by Dr. Keith tomorrow morning and if stable enough maybe start disposition plans. Current Medications Sig/Greg Start time Last Medication Dose Route Stop Time Status Admin Acetaminophen 650 MG .STK-MED ONE 08/29 0056 DC PO 08/29 0057 Acetaminophen 650 MG Q6P PRN 08/28 1830 AC 08/29 PO 0059 Alprazolam 1 MG BID 08/29 1211 AC 08/29 PO 09/05 1210 1438 Amlodipine Besylate 10 MG DAILY 08/29 1000 AC 08/29 PO 0856 Azithromycin 500 MG Q24H 08/28 1830 AC 08/28 Sodium Chloride 250 ML IV 1830 Azithromycin 500 MG ONCE ONE 08/28 1730 DC Dextrose/Water 250 ML IV 08/28 1829 Budesonide/ 2 PUF BID 08/28 2200 AC 08/29 Formoterol Fumarate INH 0856 Ceftriaxone Sodium 1,000 MG DAILY@1830 08/29 1830 AC IV Ceftriaxone Sodium 0 .STK-MED ONE 08/28 1756 DC .ROUTE Ceftriaxone Sodium 1,000 MG ONCE ONE 08/28 1730 DC 08/28 IV 08/28 1731 1824 Docusate Sodium 200 MG DAILY 08/28 2330 AC 08/29 PO 0856 Enoxaparin Sodium 40 MG DAILY 08/29 1000 AC 08/29 SC 0856 Gabapentin 300 MG QPM 08/28 2200 AC 08/29 PO 0054 Lipase/Protease/ 1 CAP TID 08/28 2200 AC 08/29 Amylase PO 0856 Methylprednisolone 40 MG Q12 08/29 2200 AC IV Methylprednisolone 40 MG Q8 08/28 2200 DC 08/29 IV 08/28 220 0605 Nicotine 2 MG Q2 HRS NEEDED PRN 08/29 1530 AC PO Omeprazole 40 MG DAILY AC 08/29 0700 AC 08/29 PO 0618 Oxycodone HCl 5 MG Q6P PRN 08/28 2115 AC 08/29 PO 1440 Sertraline HCl 100 MG BID 08/29 1000 AC 08/29 PO 1146 Laboratory Tests 08/29/16 0700: Anion Gap 8, Estimated GFR > 60, BUN/Creatinine Ratio 17.5, CBC w Diff NO MAN DIFF REQ, RBC 3.76 L, MCV 71.4 L, MCH 23.0 L, RDW 18.1 H, MPV 9.0, Gran % 93.5 H, Lymphocytes % 4.6 L, Monocytes % 1.8, Eosinophils % 0.1, Basophils % 0 L, Absolute Granulocytes 3.6, Absolute Lymphocytes 0.2 L, Absolute Monocytes 0.1 L, Absolute Eosinophils 0, Absolute Basophils 0, PUBS MCHC 32.2 L 08/28/16 1737: Lactic Acid Cancelled 08/28/16 1610: Urine Opiates Screen 934.00, Methadone Screen < 40, Barbiturate Screen < 60, Ur Phencyclidine Scrn < 6.00, Amphetamines Screen < 100, U Benzodiazepines Scrn > 800 H, Urine Cocaine Screen < 50, Urine Cannabis Screen < 5.00, Urine Color YEL , Urine Clarity CLEAR, Urine pH 6.5, Ur Specific [place] 1.015, Urine Protein NEG, Urine Ketones NEG, Urine Nitrite NEG, Urine Bilirubin NEG, Urine Urobilinogen 0.2, Ur Leukocyte Esterase NEG, Ur Microscopic EXAM NOT REQUIRED, Urine Hemoglobin NEG, Urine Glucose NEG Microbiology 08/28 1609 URINE ROUT: Legionella Antigen - COMP 08/28 1609 URINE ROUT: Streptococcus pneumoniae Antigen (M - COMP Microbiology Date/Time Procedure - Status Source Growth 08/28 1725 Respiratory Culture - CAN LOWER RESP Cancelled: SPECIMEN NOT RECEIVED IN LABORATORY 08/28 1725 Gram Stain - CAN LOWER RESP Cancelled: SPECIMEN NOT RECEIVED IN LABORATORY 08/28 1609 Legionella Antigen - COMP URINE ROUT 08/28 1609 Streptococcus pneumoniae Antigen (M - COMP URINE ROUT Vital Signs Date Time Temp Pulse Resp B/P Pulse O2 O2 Flow FiO2 Ox Delivery Rate 08/29 1407 Room Air 08/29 0856 130/70 08/29 0801 98.7 93 20 134/84 93 Intake & Output 08/29 1600 Intake Total 1200 Output Total 800 Balance 400 Intake, Oral 1200 Output, Urine 800
[2016-08-29 16:02] VITALS: BP 110/78
[2016-08-29 22:26] VITALS: BP 118/58; BP 118/82
--- NOTE | 2016-08-30 07:04 | Cons- Hematology ---
General Information and HPI Consulting Request Date of Consult: 08/30/16 Requested By: MIKE EVANS MD History of Present Illness: The patient is a 65-year-old woman with multiple myeloma being treated with cybor -d on an every other week basis now admitted with shortness of breath. This was not associated with fever, chills, productive sputum, chest pain or hemoptysis. Patient feels she is now back at baseline Allergies/Medications Allergies: Coded Allergies: morphine (ITCHING 10/03/15) Home Med List: Albuterol Sulfate (Proair Hfa) 8.5 GM HFA.AER.AD 2 PUF INH PRN RESPIRATORY ( Reported) Alprazolam 1 MG TABLET 1 TAB PO BID ANXIETY Amlodipine (Norvasc 10MG) 10 MG TAB 1 TAB PO DAILY BP Brexpiprazole (Rexulti) 1 MG TABLET 1 TAB PO DAILY MENTAL HEALTH (Reported) Budesonide/Formoterol Fumarate (Symbicort 160-4.5 Mcg Inhaler) 10.2 GM HFA.AER.AD 2 PUF INH BID RESPIRATORY (Reported) Calcium Carbonate (Calcium 600) 600 MG TAB 1 TAB PO DAILY SUPPLEMENT Cyanocobalamin (Vitamin B-12) (Vitamin B12) 2,500 MCG TAB.CHEW 1,000 MCG PO DAILY SUPPLEMENT (Reported) Dexamethasone 4 MG TABLET 0.5 TAB PO EOD STEROID (Reported) Reason to Stop at ADM: on iv steroids Docusate Sodium (Colace) 100 MG CAPSULE 2 CAP PO DAILY constipation (Reported ) Ergocalciferol (Vitamin D2) (Vitamin D2) 50,000 UNIT CAPSULE 1 CAP PO QWED SUPPLEMENT (Reported) Folic Acid 1 MG TABLET 1 MG PO DAILY FOLIC ACID SUPPLEMENT (Reported) Gabapentin 300 MG CAPSULE 1 CAP PO QPM TREMORS (Reported) LIPASE/PROTEASE/AMYLASE (Pancrelipase Dr 5,000 Unit Cap) [id number] CAPSULE. 1 CAP PO TID PANCREASE (Reported) Losartan (Cozaar) 100 MG TAB 1 TAB PO DAILY BP Omeprazole 40 MG CAPSULE.DR 1 CAP PO DAILY GI (Reported) Oxycodone HCl (Oxycontin) 40 MG TAB.ER.12H 1 TAB PO BID PAIN (Reported) Oxycodone HCl 5 MG TABLET 5 MG PO Q6P PRN PAIN SCALE 7-10 (SEVERE) Potassium Chloride 10 MEQ TAB.ER.PRT 1 TAB PO DAILY SUPPLEMENT (Reported) SERTRALINE HCL (Sertraline Hydrochloride) 100 MG TABLET 1 TAB PO BID ANXIETY (Reported) Current Medications: Current Medications Sig/Greg Start time Last Medication Dose Route Stop Time Status Admin Acetaminophen 650 MG Q6P PRN 08/28 1830 AC 08/29 PO 0059 Alprazolam 1 MG BID 08/29 1211 AC 08/29 PO 09/05 1212116 Amlodipine Besylate 10 MG DAILY 08/29 1000 AC 08/29 PO 0856 Azithromycin 500 MG Q24H 08/28 183 AC 08/29 Sodium Chloride 250 ML IV 180 Budesonide/ 2 PUF BID 08/28 220 AC 08/29 Formoterol Fumarate INH 2117 Ceftriaxone Sodium 1,000 MG DAILY@18308/29 183 AC 08/29 IV 1804 Docusate Sodium 200 MG DAILY 08/28 2330 AC 08/29 PO 0856 Enoxaparin Sodium 40 MG DAILY 08/29 1000 AC 08/29 SC 0856 Gabapentin 300 MG QPM 08/28 2200 AC 08/29 PO 211 Lipase/Protease/ 1 CAP TID 08/28 2199 AC 08/29 Amylase PO 2116 Methylprednisolone 40 MG Q12 08/29 220 AC 08/29 IV 2116 Nicotine 2 MG Q2 HRS NEEDED PRN 08/29 1530 AC 08/30 PO 0414 Omeprazole 40 MG DAILY AC 08/29 0700 AC 08/29 PO 0618 Oxycodone HCl 40 MG BID 08/29 2200 AC 08/29 PO 211 Oxycodone HCl 5 MG Q6P PRN 08/28 211 AC 08/30 PO 0238 Sertraline HCl 100 MG BID 08/29 1000 AC 08/29 PO 2116 Review of Systems Review of Systems: Patient denies headaches or dizziness. Patient denies nausea vomiting or GI symptomatology. Patient denies dysuria or hematuria. 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 Intermediate Care Facil. Services at Home: None Primary Language: Belarusian Smoking Status: Former Smoker ETOH Use: denies use Illicit Drug Use: denies illicit drug use Living Will? no Functional Ability ADLs Independent: dressing, eating, toileting, bathing. Ambulation: independent IADLs Independent: shopping, housework, finances, food prep, telephone, transportation , medication admin. Exam & Diagnostic Data Vital Signs and I&O Vital Signs Date Time Temp Pulse Resp B/P Pulse O2 O2 Flow FiO2 Ox Delivery Rate 08/30 0000 Room Air 08/29 2226 97.8 96 20 118/82 93 Room Air 08/29 1602 99.2 103 19 110/78 97 08/29 1407 Room Air 08/29 0856 130/70 08/29 0801 98.7 93 20 134/84 93 Intake & Output 08/30 0800 08/30 0000 08/29 1600 Intake Total 300 1200 Output Total 800 Balance 300 400 Intake, Oral 300 1200 Output, Urine 800 Gen.: in NAD, ambulating without difficulty ENT: Sclera anicteric Chest: Normal respiratory effort, decreased breath sounds Cor: RRR, no extra sounds Abdomen: Soft, bowel sounds present, no tenderness, no rebound Extremities: Without clubbing, cyanosis, or asymmetric edema Neurology: Alert and oriented 3, no gross deficit Skin: No rashes Last 48 Hours of Lab Results: Laboratory Tests 08/29 08/28 0700 1737 Chemistry Sodium (137 - 145 mmol/L) 139 Potassium (3.5 - 5.1 mmol/L) 3.8 Chloride (98 - 107 mmol/L) 103 Carbon Dioxide (22 - 30 mmol/L) 28 Anion Gap (5 - 16) 8 BUN (7 - 17 mg/dL) 7 Creatinine (0.5 - 1.0 mg/dL) 0.4 L Estimated GFR (>60 ml/min) > 60 BUN/Creatinine Ratio (7 - 25 %) 17.5 Lactic Acid Cancelled Hematology CBC w Diff NO MAN DIFF REQ WBC (4.8 - 10.8 /CUMM) 3.9 L RBC (4.20 - 5.40 /CUMM) 3.76 L Hgb (12.0 - 16.0 G/DL) 8.6 L Hct (37 - 47 %) 26.9 L MCV (81.0 - 99.0 FL) 71.4 L MCH (27.0 - 31.0 PG) 23.0 L RDW (11.5 - 14.5 %) 18.1 H Plt Count (130 - 400 /CUMM) 167 MPV (7.4 - 10.4 FL) 9.0 Gran % (42.2 - 75.2 %) 93.5 H Lymphocytes % (20.5 - 51.1 %) 4.6 L Monocytes % (1.7 - 9.3 %) 1.8 Eosinophils % (0 - 5 %) 0.1 Basophils % (0.0 - 2.0 %) 0 L Absolute Granulocytes (1.4 - 6.5 /CUMM) 3.6 Absolute Lymphocytes (1.2 - 3.4 /CUMM) 0.2 L Absolute Monocytes (0.10 - 0.60 /CUMM) 0.1 L Absolute Eosinophils (0.0 - 0.7 /CUMM) 0 Absolute Basophils (0.0 - 0.2 /CUMM) 0 PUBS MCHC (33.0 - 37.0 G/DL) 32.2 L 08/28 08/28 1610 1513 Chemistry Sodium (137 - 145 mmol/L) 132 L Potassium (3.5 - 5.1 mmol/L) 4.0 Chloride (98 - 107 mmol/L) 96 L Carbon Dioxide (22 - 30 mmol/L) 28 Anion Gap (5 - 16) 8 BUN (7 - 17 mg/dL) 6 L Creatinine (0.5 - 1.0 mg/dL) 0.4 L Estimated GFR (>60 ml/min) > 60 BUN/Creatinine Ratio (7 - 25 %) 15.0 Glucose (65 - 99 mg/dL) 97 Calcium (8.4 - 10.2 mg/dL) 7.9 L Magnesium (1.6 - 2.3 mg/dL) 1.8 Total Bilirubin (0.2 - 1.3 mg/dL) 0.3 AST (14 - 36 U/L) 15 ALT (9 - 52 U/L) 30 Alkaline Phosphatase (<127 U/L) 49 Troponin I (< 0.11 ng/ml) < 0.01 [id number] Pept (<125 pg/mL) 186 H Total Protein (6.3 - 8.2 g/dL) 6.0 L Albumin (3.5 - 5.0 g/dL) 3.6 Globulin (1.9 - 4.2 gm/dL) 2.4 Albumin/Globulin Ratio (1.1 - 2.2 %) 1.5 Amylase (30 - 110 U/L) < 30 L Lipase (23 - 300 U/L) < 10 L Coagulation D-Dimer (70 - 232 ng/ml) < 200 Hematology CBC w Diff NO MAN DIFF REQ WBC (4.8 - 10.8 /CUMM) 6.8 RBC (4.20 - 5.40 /CUMM) 3.74 L Hgb (12.0 - 16.0 G/DL) 8.5 L Hct (37 - 47 %) 27.0 L MCV (81.0 - 99.0 FL) 72.3 L MCH (27.0 - 31.0 PG) 22.7 L RDW (11.5 - 14.5 %) 18.6 H Plt Count (130 - 400 /CUMM) 192 MPV (7.4 - 10.4 FL) 8.0 Gran % (42.2 - 75.2 %) 86.3 H Lymphocytes % (20.5 - 51.1 %) 5.5 L Monocytes % (1.7 - 9.3 %) 6.7 Eosinophils % (0 - 5 %) 1.2 Basophils % (0.0 - 2.0 %) 0.3 Absolute Granulocytes (1.4 - 6.5 /CUMM) 5.8 Absolute Lymphocytes (1.2 - 3.4 /CUMM) 0.4 L Absolute Monocytes (0.10 - 0.60 /CUMM) 0.5 Absolute Eosinophils (0.0 - 0.7 /CUMM) 0.1 Absolute Basophils (0.0 - 0.2 /CUMM) 0 PUBS MCHC (33.0 - 37.0 G/DL) 31.4 L Toxicology Urine Opiates Screen (>2000 NG/ML) 934.00 Methadone Screen (>300 NG/ML) < 40 Barbiturate Screen (>200 NG/ML) < 60 Ur Phencyclidine Scrn (>25 NG/ML) < 6.00 Amphetamines Screen (>1000 NG/ML) < 100 U Benzodiazepines Scrn (>200 NG/ML) > 800 H Urine Cocaine Screen (>300 NG/ML) < 50 Urine Cannabis Screen (>50 NG/ML) < 5.00 Serum Alcohol (<10 MG/DL) < 10.0 Urines Urine Color (YEL,AMB,STR) YEL Urine Clarity (CLEAR) CLEAR Urine pH (5.0 - 8.0) 6.5 Ur Specific [place] (1.001 - 1.035) 1.015 Urine Protein (NEG,<30 MG/DL) NEG Urine Ketones (NEG) NEG Urine Nitrite (NEG) NEG Urine Bilirubin (NEG) NEG Urine Urobilinogen (0.1 - 1.0 EU/dl) 0.2 Ur Leukocyte Esterase (NEG) NEG Ur Microscopic EXAM NOT REQUIRED Urine Hemoglobin (NEG) NEG Urine Glucose (N MG/DL) NEG 08/28 08/28 1445 1437 Blood Gas pH (7.35 - 7.45 PH) 7.31 L pCO2 (35 - 45 TORR) 55 H pO2 (80 - 100 TORR) 88 HCO3 (21 - 28 MEQ/L) 27 ABG O2 Sat (Measured) (>96.0 %) 94.0 L Carboxyhemoglobin (1.5 - 5.0 %) 1.2 L O2 Concentration % 3L O2 Delivery Method NC Chemistry Lactic Acid (0.7 - 2.1 mmol/L) 1.0 Miscellaneous Phlebotomy Draw Site RIGHT RADIAL Imaging/Other Studies: [id number] pulmonary emboli or infiltrates Assessment/Plan Assessment: 1. Multiple myeloma-modest cytopenias with microcytic anemia. Patient has not benign deficient. Decreased counts likely due to chemotherapy and underlying myeloma. Multiple myeloma has responded nicely to her current systemic therapy. Recommend- Follow CBC 2. Pain syndrome-under good control with current regimen 3. Respiratory status-no obvious pneumonia As per Dr. Evans Recommendations: .. Consult Acknowledgment - Thank you for your consult request.
--- NOTE | 2016-08-30 07:17 | PN- Housestaff ---
Subjective Follow-up For: 1. pneumonia Subjective: The patient was comfortable this morning. Did not have any complaints. Vitals remained stable. She was afebrile. Did not need supplemental oxygen overnight. Was seen walking this morning. Review of Systems Constitutional: Reports: see HPI. Objective Last 24 Hrs of Vital Signs/I&O Vital Signs Date Time Temp Pulse Resp B/P Pulse O2 O2 Flow FiO2 Ox Delivery Rate 08/30 0000 Room Air 08/29 2226 97.8 96 20 118/82 93 Room Air 08/29 1602 99.2 103 19 110/78 97 08/29 1407 Room Air 08/29 0856 130/70 08/29 0801 98.7 93 20 134/84 93 Intake & Output 08/30 0800 08/30 0000 08/29 1600 Intake Total 300 1200 Output Total 800 Balance 300 400 Intake, Oral 300 1200 Output, Urine 800 Physical Exam General Appearance: No Acute Distress Other Physical Findings: General Exam: AAOx3, No acute distress, Skin: No rashes, no breakdown HEENT: PERRLA, EOMI Neck: Supple, No JVD No cervical lymphadenopathy CVS: Reg Rate, Normal S1,S2, No MGR Resp: Normal air entry, no ronchi/rales Abdomen: Soft, No tenderness, Normal Bowel Sounds Neuro: Normal Speech, Strength 5/5 b/l x 4 extremities, Sensation intact, CN III -XII NL, Reflexes 2+ Extremities: No cyanosis, pedal edema Current Medications: Current Medications Sig/Greg Start time Last Medication Dose Route Stop Time Status Admin Acetaminophen 650 MG Q6P PRN 08/28 18308/29 PO 0059 Alprazolam 1 MG BID 08/29 1211 AC 08/29 PO 09/05 1210 7 Amlodipine Besylate 10 MG DAILY 08/29 1000 AC 08/29 PO 0856 Azithromycin 500 MG Q24H 08/28 Sodium Chloride 250 ML IV 1805 Budesonide/ 2 PUF BID 08/28 Formoterol Fumarate INH 7 Ceftriaxone Sodium 1,000 MG DAILY@18308/29 1830 AC 08/29 IV 1804 Docusate Sodium 200 MG DAILY 08/28 2330 AC 08/29 PO 0856 Enoxaparin Sodium 40 MG DAILY 08/29 1000 AC 08/29 SC 0856 Gabapentin 300 MG QPM 08/28 2199 AC 08/29 PO 2116 Lipase/Protease/ 1 CAP TID 08/28 Amylase PO 2116 Methylprednisolone 40 MG Q12 08/29 2199 AC 08/29 IV 2115 Nicotine 2 MG Q2 HRS NEEDED PRN 08/29 1530 AC 08/30 PO 0414 Omeprazole 40 MG DAILY AC 08/29 0700 AC 08/29 PO 0618 Oxycodone HCl 40 MG BID 08/29 2199 AC 08/29 PO 2116 Oxycodone HCl 5 MG Q6P PRN 08/28 2114 AC 08/30 PO 0238 Sertraline HCl 100 MG BID 08/29 1000 AC 08/29 PO 2116 Assessment/Plan Assessment: Ms Camargo is a past medical history of multiple myeloma on chemotherapy ( ? CyBorD ), COPD (not on home oxygen) alcoholic hepatitis, chronic back pain- herniated disc, hypertension, pancreatitis, diverticulitis. She was admitted to [facility] for evaluation of shortness of breath and cough 2 days. Differential diagnoses #1 community-acquired pneumonia #2 COPD exacerbation Below is the problem list and plan: #1 shortness of breath, cough-likely due to pneumonia. Patient has been started on ceftriaxone and azithromycin. Intravenous Antibiotics have been changed to by mouth antibiotics-levofloxacin 750 mg by mouth daily for 5 more days. Lower respiratory cultures(pending), blood cultures x2 negative so far, Legionella and strep pneumo antigen are negative. Oxygen as needed. Steroids for management of COPD exacerbation. Immunosuppression likely due to chemotherapy, might have resulted in pneumonia. Or, she likely wasnt able to mount an immune response. Monitor WBC closely. WBC 6.8-->3.9. Reason unknown at this time. The patient has been seen by Dr. Rodriguez. #2 multiple myeloma-serum calcium 7.9, normal kidney function. Pain management with opiates w/ decreased doses. The patient will restart dexamethasone at the tail end of the taper of prednisone. #3 history of pancreatitis and pancreatic insufficiency-continue Zenpep. #3 DVT prophylaxis-Lovenox. Problem List: 1. Shortness of breath 2. Benzodiazepine dependence 3. Community acquired pneumonia Pain Ratin Pain Location: None Pain Goal: Pain 4 or less Pain Plan: Tylenol when necessary Tomorrow's Labs & Rationales: No labs necessary.
[2016-08-30 08:26] VITALS: BP 112/64
[2016-08-30 09:02] LABS: ABSOLUTE BASOPHIL COUNT 0 /CUMM (0.0-0.2); ABSOLUTE EOSINOPHIL COUNT 0 /CUMM (0.0-0.7); ABSOLUTE GRANULOCYTE CT 4.6 /CUMM (1.4-6.5); ABSOLUTE LYMPH COUNT 0.3 /CUMM (1.2-3.4); ABSOLUTE MONOCYTE COUNT 0.3 /CUMM (0.10-0.60); BASOPHIL % 0 % (0.0-2.0); EOSINOPHIL % 0.3 % (0-5); GRANULOCYTE % 87.4 % (42.2-75.2); HEMATOCRIT 25.8 % (37-47); MEAN CORPUSCULAR HGB CONC 32.3 G/DL (33.0-37.0); MEAN CORPUSCULAR VOLUME 71.4 FL (81.0-99.0); MEAN PLATELET VOLUME 8.9 FL (7.4-10.4); PLATELET COUNT 200 /CUMM (130-400); RBC DISTRIBUTION WIDTH 18.5 % (11.5-14.5); RED BLOOD CELL CT 3.61 /CUMM (4.20-5.40); WHITE BLOOD CELL COUNT 5.3 /CUMM (4.8-10.8)
[2016-08-30 09:34] VITALS: BP 140/84
--- NOTE | 2016-08-30 11:01 | Cons- Pulmonary ---
General Information and HPI Consulting Request Date of Consult: 08/30/16 Requested By: Dr Ruvalcaba History of Present Illness: The patient is a 65-year-old woman with multiple myeloma being treated with cybor -d on an every other week basis now admitted with shortness of breath. This was not associated with fever, chills, productive sputum, chest pain or hemoptysis. Patient feels she is now back at baseline Shortness of breath in the last 2 days, acute, worsened to a point where she was short of breath doing her daily chores; no orthopnea or PND. Has been using inhalers with no relief in the last 2 days. Also was concerned about cough, productive, intermittent. No fever, sick contacts, chest pain or palpitations. No abdominal pain or bowel or bladder incontinence. Oxygen saturation dropped to 85-87% on room air at the time of admission. Recent admission to [facility] for acute exacerbation of COPD. Review of Systems Constitutional: Denies: chills, fever. EENTM: Denies: visual changes. Cardiovascular: Denies: edema. Respiratory: Denies: cough, short of breath. GI: Denies: melena, nausea. Genitourinary: Denies: dysuria. Musculoskeletal: Denies: back pain, joint pain. Skin: Denies: change in skin color. Neurological/Psychological: Denies: anxiety. Hematologic/Endocrine: Denies: bruising. Allergies/Medications Allergies: Coded Allergies: morphine (ITCHING 10/03/15) Home Med List: Albuterol Sulfate (Proair Hfa) 8.5 GM HFA.AER.AD 2 PUF INH PRN RESPIRATORY ( Reported) Alprazolam 1 MG TABLET 1 TAB PO BID ANXIETY Amlodipine (Norvasc 10MG) 10 MG TAB 1 TAB PO DAILY BP Brexpiprazole (Rexulti) 1 MG TABLET 1 TAB PO DAILY MENTAL HEALTH (Reported) Budesonide/Formoterol Fumarate (Symbicort 160-4.5 Mcg Inhaler) 10.2 GM HFA.AER.AD 2 PUF INH BID RESPIRATORY (Reported) Calcium Carbonate (Calcium 600) 600 MG TAB 1 TAB PO DAILY SUPPLEMENT Cyanocobalamin (Vitamin B-12) (Vitamin B12) 2,500 MCG TAB.CHEW 1,000 MCG PO DAILY SUPPLEMENT (Reported) Dexamethasone 4 MG TABLET 0.5 TAB PO EOD STEROID (Reported) Reason to Stop at ADM: on iv steroids Docusate Sodium (Colace) 100 MG CAPSULE 2 CAP PO DAILY constipation (Reported ) Ergocalciferol (Vitamin D2) (Vitamin D2) 50,000 UNIT CAPSULE 1 CAP PO QWED SUPPLEMENT (Reported) Folic Acid 1 MG TABLET 1 MG PO DAILY FOLIC ACID SUPPLEMENT (Reported) Gabapentin 300 MG CAPSULE 1 CAP PO QPM TREMORS (Reported) LIPASE/PROTEASE/AMYLASE (Pancrelipase 5,000 Unit Cap) 5K-[id number] CAPSULE.DR 1 CAP PO TID PANCREASE (Reported) Losartan (Cozaar) 100 MG TAB 1 TAB PO DAILY BP Omeprazole 40 MG CAPSULE.DR 1 CAP PO DAILY GI (Reported) Oxycodone HCl (Oxycontin) 40 MG TAB.ER.12H 1 TAB PO BID PAIN (Reported) Oxycodone HCl 5 MG TABLET 5 MG PO Q6P PRN PAIN SCALE 7-10 (SEVERE) Potassium Chloride 10 MEQ TAB.ER.PRT 1 TAB PO DAILY SUPPLEMENT (Reported) SERTRALINE HCL (Sertraline Hydrochloride) 100 MG TABLET 1 TAB PO BID ANXIETY (Reported) Review of Systems Review of Systems Constitutional: Reports: see HPI. Past History Travel History Traveled to [place] past 21 day No Medical History Neurological: NONE EENT: NONE Cardiovascular: NONE Respiratory: NONE Gastrointestinal: pancreatitis, DIVERTICULITIS CHRONIC DIARRHEA INGUINAL HERNIA SBO Hepatic: ALCHOLIC HEPATITIS Renal: NONE Musculoskeletal: chronic back pain HERNIATED LUMBAR DISC POLYCYSTITIS Psychiatric: anxiety, depression, ALCOHOLISM Endocrine: NONE Blood Disorders: NONE Cancer(s): MULT MYELOMA EELER/Reproductive: NONE Other Medical Hx: Patient has also had a nonspecific dermatitis with topical therapy Surgical History Surgical History: laminectomy toe amputation bilaterally due to deformity Family History Relations & Conditions If Any: Relation not specified for: *No pertinent family history Psychosocial History Where Do You Live? Intermediate Care Facil. Services at Home: None Primary Language: Israeli Smoking Status: Former Smoker ETOH Use: denies use Illicit Drug Use: denies illicit drug use Living Will? no Functional Ability ADLs Independent: dressing, eating, toileting, bathing. Ambulation: independent IADLs Independent: shopping, housework, finances, food prep, telephone, transportation , medication admin. Exam & Diagnostic Data Last 24 Hrs of Vital Signs/I&O Vital Signs Date Time Temp Pulse Resp B/P Pulse O2 O2 Flow FiO2 Ox Delivery Rate 08/30 0934 140/84 08/30 0826 98.1 84 20 112/64 96 Room Air 08/30 0800 Room Air 08/30 0000 Room Air 08/29 2226 97.8 96 20 118/82 93 Room Air 08/29 1602 99.2 103 19 110/78 97 08/29 1407 Room Air Intake & Output 08/30 1600 08/30 0800 08/30 0000 Intake Total 300 300 Output Total Balance 300 300 Intake, Oral 300 300 Last 48 Hrs of Labs/Guzman: Laboratory Tests 08/30/16 0754: Anion Gap 6, Estimated GFR > 60, BUN/Creatinine Ratio 22.0, CBC w Diff MAN DIFF ORDERED, RBC 3.61 L, MCV 71.4 L, MCH 23.0 L, RDW 18.5 H, MPV 8.9, Gran % 87.4 H, Lymphocytes % 6.3 L, Monocytes % 6.0, Eosinophils % 0.3, Basophils % 0 L, Absolute Granulocytes 4.6, Absolute Lymphocytes 0.3 L, Absolute Monocytes 0.3, Absolute Eosinophils 0, Absolute Basophils 0, Platelet Estimate VERIFIED BY SMEAR, Polychromasia 1+, Hypochromic-Microcytic 1+, Poikilocytosis 1+, Anisocytosis 1+, Microcytic Cells 1+, Ovalocytes 1+, PUBS MCHC 32.3 L 08/29/16 0700: Anion Gap 8, Estimated GFR > 60, BUN/Creatinine Ratio 17.5, CBC w Diff NO MAN DIFF REQ, RBC 3.76 L, MCV 71.4 L, MCH 23.0 L, RDW 18.1 H, MPV 9.0, Gran % 93.5 H, Lymphocytes % 4.6 L, Monocytes % 1.8, Eosinophils % 0.1, Basophils % 0 L, Absolute Granulocytes 3.6, Absolute Lymphocytes 0.2 L, Absolute Monocytes 0.1 L, Absolute Eosinophils 0, Absolute Basophils 0, PUBS MCHC 32.2 L 08/28/16 1737: Lactic Acid Cancelled 08/28/16 1610: Urine Opiates Screen 934.00, Methadone Screen < 40, Barbiturate Screen < 60, Ur Phencyclidine Scrn < 6.00, Amphetamines Screen < 100, U Benzodiazepines Scrn > 800 H, Urine Cocaine Screen < 50, Urine Cannabis Screen < 5.00, Urine Color YEL , Urine Clarity CLEAR, Urine pH 6.5, Ur Specific Hinkle 1.015, Urine Protein NEG, Urine Ketones NEG, Urine Nitrite NEG, Urine Bilirubin NEG, Urine Urobilinogen 0.2, Ur Leukocyte Esterase NEG, Ur Microscopic EXAM NOT REQUIRED, Urine Hemoglobin NEG, Urine Glucose NEG 08/28/16 1513: Anion Gap 8, Estimated GFR > 60, BUN/Creatinine Ratio 15.0, Glucose 97, Calcium 7.9 L, Magnesium 1.8, Total Bilirubin 0.3, AST 15, ALT 30, Alkaline Phosphatase 49, Troponin I < 0.01, [id number] Pept 186 H, Total Protein 6.0 L, Albumin 3.6, Globulin 2.4, Albumin/Globulin Ratio 1.5, Amylase < 30 L, Lipase < 10 L, D-Dimer < 200, CBC w Diff NO MAN DIFF REQ, RBC 3.74 L, MCV 72.3 L, MCH 22.7 L, RDW 18.6 H, MPV 8.0, Gran % 86.3 H, Lymphocytes % 5.5 L, Monocytes % 6.7, Eosinophils % 1.2, Basophils % 0.3, Absolute Granulocytes 5.8, Absolute Lymphocytes 0.4 L, Absolute Monocytes 0.5, Absolute Eosinophils 0.1, Absolute Basophils 0, PUBS MCHC 31.4 L, Serum Alcohol < 10.0 08/28/16 1445: pH 7.31 L, pCO2 55 H, pO2 88, HCO3 27, ABG O2 Sat (Measured) 94.0 L, Carboxyhemoglobin 1.2 L, O2 Concentration % 3L, O2 Delivery Method NC, Phlebotomy Draw Site RIGHT RADIAL 08/28/16 1437: Lactic Acid 1.0 Microbiology 08/28 1609 URINE ROUT: Legionella Antigen - COMP 08/28 1609 URINE ROUT: Streptococcus pneumoniae Antigen (M - COMP Assessment/Plan Impression/Plan: Physical Exam General Appearance Alert, Oriented X3, Cooperative, No Acute Distress Skin No Breakdown HEENT PERRLA Neck Supple, No JVD, No thryomegaly Lymphatic Cervical nl Cardiovascular Normal S1, Normal S2 Lungs bilateral crackles, mild Decreased air entry bilaterally Abdomen Normal Bowel Sounds, Soft, No Tenderness Neurological Normal Gait, Normal Speech, Strength at 5/5 X4 Ext, Normal Tone, Sensation Intact, Cranial Nerves 3-12 NL Extremities No Clubbing, No Cyanosis, No Edema Vascular Pulses Symmetrical SIGNIFICANT DATA SIGNIFICANT DATA CT scan of the chest reviewed which showed no pulmonary embolism. Mild bibasilar patchy groundglass opacities consistent with infectious inflammatory etiology but seems to have improved with mild bronchiectasis with compression deformities. Lesion or urinary antigen and strep pneumo antigen negative Blood count and blood work reviewed She has moderate cytopenia related to her multiple myeloma. IMPRESSION 65 yo F with past medical history of multiple myeloma on cybor - d q every other week, chronic back pain due to herniated disc, Multiple compression fractures due to multiple myeloma, anxiety, depression, chronic previous alcohol use, hypertension, pancreatitis, alcoholic hepatitis, diverticulitis, dermatitis Now comes with hypoxia, sputum production and bibasilar infiltrates in am patient with sig immune def due to advanced myeloma here with CAP Sig copd aswell with not much wheezing CAP, bilateral Other issues Multiple myeloma on chemo and hence immunosuppresed with recurrent infections. Pt is responding to cyber - d ANemia and chronic cytopenia due to myeloma stable Chronic pain on narcotics stable Depression stable Pancreatic insuff on supp Electrolyte imbalance now better REC ABX po levoquin 750 upon dc for five more days Will dc today if stable or in am Steroids change to prednisone 40 qd and wean in 8 days Strict sugar control Nebs atc Increase activity will follow Consult Acknowledgment - Thank you for your consult request.
--- NOTE | 2016-08-30 11:27 | Patient Discharge Instructions ---
Discharge Instructions General Discharge Information You were seen/treated for: #1 pneumonia Watch for these problems: #1 shortness of breath, chest pain #2 fever #3 back pain, loss of sensations in lower extremities #4 altered mental status #5 decreased urine output Special Instructions: #1 please follow-up with your primary care provider within a week of discharge. #2 please follow-up with your director [employer] database within a week of discharge. #3 please follow up with Dr. Rodriguez-umbrella supervisor within a week of discharge. Acute Coronary Syndrome Inclusion Criteria At DC or during hospital stay patient has or had the following: ACS DIAGNOSIS No Discharge Core Measures Meds if any: Prescribed or Continued at Discharge Meds if any: NOT Prescribed or Continued at Discharge Congestive Heart Failure Inclusion Criteria At DC or during hospital stay patient has or had the following: CHF DIAGNOSIS No Discharge Core Measures Meds if any: Prescribed or Continued at Discharge Meds if any: NOT Prescribed or Continued at Discharge Cerebrovascular accident Inclusion Criteria At DC or during hospital stay patient has or had the following: CVA/TIA Diagnosis No Discharge Core Measures Meds if any: Prescribed or Continued at Discharge Meds if any: NOT Prescribed or Continued at Discharge Venous thromboembolism Inclusion Criteria VTE Diagnosis No VTE Type NONE VTE Confirmed by (Test) NONE Discharge Core Measures - Per Current guidelines, there needs to be overlap - treatment for the first 5 days of Warfarin therapy. - If discharged on Warfarin prior to 5 days of - overlap therapy, the patient will need to be - assessed for post discharge needs including - *Post discharge parental anticoagulation - *Warfarin and/or parental anticoagulation education - *Follow up date to check INR post discharge At least 5 days overlap therapy as Inpatient No Meds if any: Prescribed or Continued at Discharge Note: Overlap Therapy is Warfarin and Anticoagulant Meds if any: NOT Prescribed or Continued at Discharge
[2016-08-30] MEDS ORDERED: LEVAQUIN750 M1 PO (11:33)
[2016-08-30] MEDS ORDERED: PREDNISONE10 M2 PO (11:33)
--- NOTE | 2016-09-28 18:25 | Discharge Summary ---
Visit Information Visit Dates Admission Date: 08/28/16 Discharge Date: 08/30/16 Hospital Course Course Attending Physician: MILAN THAKUR MD Primary Care Physician: MILAN THAKUR MD Hospital Course: 65 yo F with past medical history of multiple myeloma on cybor - d q every other week, chronic back pain due to herniated disc, Multiple compression fractures due to multiple myeloma, anxiety, depression, chronic previous alcohol use, hypertension, pancreatitis, alcoholic hepatitis, diverticulitis, dermatitis Now comes with hypoxia, sputum production and bibasilar infiltrates in am patient with sig immune def due to advanced myeloma here with CAP Sig copd aswell with not much wheezing CAP, bilateral Other issues Multiple myeloma on chemo and hence immunosuppresed with recurrent infections. Pt is responding to cyber - d ANemia and chronic cytopenia due to myeloma stable Chronic pain on narcotics stable Depression stable Pancreatic insuff on supp Electrolyte imbalance now better REC ABX po levoquin 750 upon dc for five more days Will dc today if stable or in am Steroids change to prednisone 40 qd and wean in 8 days Strict sugar control Nebs atc Increase activity will follow Allergies: Coded Allergies: morphine (ITCHING 10/03/15) Disposition Summary Disposition Principal Diagnosis: Pneumonia Additional Diagnosis: Sig copd aswell with not much wheezing CAP, bilateral Other issues Multiple myeloma on chemo and hence immunosuppresed with recurrent infections. Pt is responding to cyber - d ANemia and chronic cytopenia due to myeloma stable Chronic pain on narcotics stable Depression stable Pancreatic insuff on supp Electrolyte imbalance Discharge Disposition: home health services Discharge Instructions General Discharge Information Code Status: Full Code Patient's Diet: low fat Patient's Activity: as ced Follow-Up Instructions/Appts: with me Medications at Discharge Discharge Medications: Stop taking the following medications: Dexamethasone (Dexamethasone) 4 MG TABLET ORAL Every other day Qty = 30 Continue taking these medications: SERTRALINE HCL (Sertraline Hydrochloride) 100 MG TABLET 1 Tablet ORAL TWICE DAILY Qty = 60 Comments: Last Taken: 11/07/15 Time: 9:00AM Ergocalciferol (Vitamin D2) (Vitamin D2) 50,000 UNIT CAPSULE 1 Capsule ORAL EVERY TUESDAY Comments: Last Taken: Time: NOT TAKEN IN HOSPITAL LIPASE/PROTEASE/AMYLASE (Pancrelipase Dr 5,000 Unit Cap) [id number] CAPSULE. 1 Capsule ORAL THREE TIMES DAILY Qty = 100 Comments: Last Taken:11/07/15 Time: 12PM Folic Acid (Folic Acid) 1 MG TABLET 1 Milligram ORAL DAILY Comments: Last Taken:11/07/15 Time:9AM Amlodipine (Norvasc 10MG) 10 MG TAB 1 Tablet ORAL DAILY Qty = 30 Comments: NOT TAKEN WHILE IN HOSPITALLast Taken: Losartan (Cozaar) 100 MG TAB 1 Tablet ORAL DAILY Qty = 30 Comments: NOT GIVEN WHILE IN HOSPITAL Calcium Carbonate (Calcium 600) 600 MG TAB 1 Tablet ORAL DAILY Qty = 30 Comments: Last Taken: 11/07/15 Time:9AM Alprazolam (Alprazolam) 1 MG TABLET 1 Tablet ORAL TWICE DAILY Qty = 60 Comments: Last Taken:11/07/15 Time:9AM Gabapentin (Gabapentin) 300 MG CAPSULE 1 Capsule ORAL Every night Qty = 30 Comments: Last Taken:07/31/16 Time: 9 PM Omeprazole (Omeprazole) 40 MG CAPSULE.DR 1 Capsule ORAL DAILY Qty = 30 Comments: Last Taken:08/01/16 Time:6:30 AM Budesonide/Formoterol Fumarate (Symbicort 160-4.5 Mcg Inhaler) 10.2 GM HFA.AER.AD 2 Puff Inhale through mouth TWICE DAILY Qty = 306 Comments: Last Taken:05/12/16 Time:1000 AM Brexpiprazole (Rexulti) 1 MG TABLET 1 Tablet ORAL DAILY Qty = 30 Comments: Last Taken: 05/12/16 Time: 1000 Albuterol Sulfate (Proair Hfa) 8.5 GM HFA.AER.AD 2 Puff Inhale through mouth as needed for RESPIRATORY Qty = 85 Comments: NOT GIVEN IN HOSPITAL Oxycodone HCl (Oxycodone HCl) 5 MG TABLET 5 Milligram ORAL EVERY SIX HOURS NEEDED as needed for PAIN SCALE 7-10 ( SEVERE) Qty = 7 Comments: Last Taken:08/01/16 Time:6:30 AM Oxycodone HCl (Oxycontin) 40 MG TAB.ER.12H 1 Tablet ORAL TWICE DAILY Comments: PT STATES TAKES ONE PILL IN AM AND ONE PILL IN PM Last Taken:08/01/16 Time:10:30 AM Docusate Sodium (Colace) 100 MG CAPSULE 2 Capsule ORAL DAILY Cyanocobalamin (Vitamin B-12) (Vitamin B12) 2,500 MCG TAB.CHEW 1,000 Microgram ORAL DAILY Comments: Last Taken:08/01/16 Time:10:30 AM Potassium Chloride (Potassium Chloride) 10 MEQ TAB.ER.PRT 1 Tablet ORAL DAILY Qty = 30 Start taking the following new medications: Levofloxacin (Levaquin) 750 MG TABLET 1 Tablet ORAL DAILY Qty = 5 No Refills Prednisone (Prednisone) 10 MG TABLET 0 ORAL DAILY Qty = 20 No Refills Instructions: Please take 4 tabs(40mg) 08/31,09/01 3 tabs(30mg) 09/02,09/03 2 tabs(20mg) 09/04,09/05 1 tab(10mg) 09/06,09/07. Please stop on 09/07. Copies To: MILAN THAKUR MD Attending MD Review Statement Documenting Attending: MILAN THAKUR MD
== END 2016-08-30 14:13 | DRG 194 ==
LOC: ENRESERVDT → ENRESERVTM → CANRESERV → ERH 13:58 → 2NB 17:31 → ERHI 17:31 → 2NB 17:31
PROVIDERS: Internal Medicine Endocrinology, Diabetes & Metabolism; Physician Assistant; Student in an Organized Health Care Education/Training Program; ADMIT Internal Medicine
DX: J18.9 Pneumonia, unspecified organism (principal); J44.1 Chronic obstructive pulmonary disease with (acute) exacerbation; J96.10 Chronic respiratory failure, unspecified whether with hypoxia or hypercapnia; C90.00 Multiple myeloma not having achieved remission; F11.20 Opioid dependence, uncomplicated; Z87.891 Personal history of nicotine dependence; I10 Essential (primary) hypertension; K70.10 Alcoholic hepatitis without ascites; M51.26 Other intervertebral disc displacement, lumbar region; F10.20 Alcohol dependence, uncomplicated; Z95.0 Presence of cardiac pacemaker
CPT/HCPCS: 2NBP; 2NBSP; 36415; 80307; 81003; 82436; 87040; 87070; 87449; 87450; 93005; 93010; G0480; J0456; J0696; J1650; J2920; J2930; J3490; J7040

== ENCOUNTER 2017-02-11 11:26 | Inpatient (IN) | payer OTHER ==
[~2017-02-11] VITALS: Ht 157.5 cm; Wt 77.1 kg
[~2017-02-11 11:26] MED LIST changes: +LEVAQUIN750 M1 PO; +POTASSIUM CHLO10 ME5 PO; +PREDNISONE10 M2 PO
--- NOTE | 2017-02-11 11:34 | NUR ---
PT STENT IN BY DR. CHAO STATES PT FELT INCREASED SOB LAST EVENING AND HAD AROUTING APPT. WITH HIM TODAY FOR HER MYLOMA. PT SATS IN THE 80'S AT THE OFFICE AND PT WAS SENT HERE. PT SEES DR. THAKUR FOR HER EMPHYSEMA. PT STATES SHE HAS HAD A DEEP COUGH FOR A FEW DAYS. PT STATES COUGH IS DRY. 02 SAT IN TRIAGE IS 97% ON RA PT STATES THEY TOLD HER LAST WEEK THAT HER OXYGEN SAT WAS LOW. PT STATES HE IS NOT ON O2
--- NOTE | 2017-02-11 11:44 | NUR ---
XRAY AT BEDSIDE
[2017-02-11 12:04] LABS: ABSOLUTE BASOPHIL COUNT 0 /CUMM (0.0-0.2); ABSOLUTE EOSINOPHIL COUNT 0 /CUMM (0.0-0.7); ABSOLUTE GRANULOCYTE CT 7.3 /CUMM (1.4-6.5); ABSOLUTE LYMPH COUNT 0.3 /CUMM (1.2-3.4); ABSOLUTE MONOCYTE COUNT 0.5 /CUMM (0.10-0.60); BASOPHIL % 0 % (0.0-2.0); EOSINOPHIL % 0.3 % (0-5); HEMATOCRIT 27.1 % (37-47); MEAN CORPUSCULAR HGB 23.8 PG (27.0-31.0); MEAN CORPUSCULAR HGB CONC 32.5 G/DL (33.0-37.0); MEAN CORPUSCULAR VOLUME 73.2 FL (81.0-99.0); MEAN PLATELET VOLUME 7.6 FL (7.4-10.4); PLATELET COUNT 176 /CUMM (130-400); RBC DISTRIBUTION WIDTH 19.5 % (11.5-14.5); WHITE BLOOD CELL COUNT 8.1 /CUMM (4.8-10.8)
--- NOTE | 2017-02-11 12:04 | NUR ---
BLOOD WORK DRAWN AND SENT TO LAB: SST, LAV, BLUE, SOTELO AND PINK TOPS. IV EST TO R MEAGAN.
--- NOTE | 2017-02-11 12:13 | RADIOLOGY REPORT ---
EXAMINATION: XR PORTABLE CHEST CLINICAL INFORMATION: Shortness of breath COMPARISON: 08/28/16 TECHNIQUE: Portable frontal view of the chest was obtained. FINDINGS: Lordotic projection. Minimal tortuosity aorta. Cardiac size is within normal limits. There is no alveolar edema. There is no consolidation of the left lung. There is a rounded density in the right upper chest centrally. There is no significant pleural fluid or pneumothorax. The mediastinum is underpenetrated. The rounded density in the medial right upper chest superimposes over the region of the anterior right third rib and posterior right fifth and sixth ribs. There are some other rib deformities suggested. Brief targeted review of CT 08/28/16 demonstrated sclerotic areas in the ribs perhaps related to previous injury. IMPRESSION: No definite pneumonia or edema. Density in the medial mid right chest could be related to the ribs. When patient condition allows a PA and lateral standard chest radiograph recommended
[2017-02-11 12:21] LABS: GRANULOCYTE % 90.8 % (42.2-75.2)
--- NOTE | 2017-02-11 12:39 | ED DYSPNEA/ASTHMA COMPLAINT ---
History of Present Illness General Chief Complaint: Dyspnea (COPD, CHF, Other) Stated Complaint: DYSPNEA Source: patient Exam Limitations: no limitations Vital Signs & Intake/Output Vital Signs & Intake/Output Vital Signs Date Time Temp Pulse Resp B/P B/P Pulse O2 O2 Flow FiO2 Mean Ox Delivery Rate 02/13 1401 97 Room Air Room Air 02/13 0627 97.8 81 20 140/80 97 Room Air 02/13 0600 97.8 81 20 140/80 / 0200 97.9 93 20 140/70 / 0000 97.9 93 20 140/70 07/ 0000 98 Room Air 02/12 2158 97.9 93 20 140/70 98 ED Intake and Output 02/13 0000 02/12 1200 Intake Total 1400 1080 Output Total 300 Balance 1100 1080 Intake, IV 600 600 Intake, Oral 800 480 Output, Urine 300 Allergies Coded Allergies: morphine (ITCHING 10/03/15) Triage Note: PT STENT IN BY DR. CHAO STATES PT FELT INCREASED SOB LAST EVENING AND HAD AROUTING APPT. WITH HIM TODAY FOR HER MYLOMA. PT SATS IN THE 80'S AT THE OFFICE AND PT WAS SENT HERE. PT SEES DR. THAKUR FOR HER EMPHYSEMA. PT STATES SHE HAS HAD A DEEP COUGH FOR A FEW DAYS. PT STATES COUGH IS DRY. Triage Nurses Notes Reviewed? yes Onset: Abrupt Duration: day(s):, constant, continues in ED Timing: recent history Severity: moderate, severe HPI: 66-year-old female comes into emergency room with complaints of shortness of breath. Symptoms may going on for the past 2 days. She reports to us of the cough. Denies any fever. Denies any vomiting. Denies any chest pain. Patient has a history of emphysema. History of multiple myeloma. She sees Dr. Thakur for her pulmonary disease. She been admitted for bilateral pneumonia in the past. (DANO MERA,RIGO) Reconcile Medications Acyclovir 400 MG TABLET 1 TAB PO BID NEW SCRIPT FILLED 02/11 (Reported) Albuterol Sulfate 2.5 MG/3 ML (0.083 %) VIAL.NEB 3 ML INH Q4P PRN SHORTNESS OF BREATH Alprazolam 1 MG TABLET 1 TAB PO BIDP PRN ANXIETY (Reported) Amlodipine Besylate 10 MG TABLET 1 TAB PO DAILY HIGH BLOOD PRESSURE (Reported ) Amoxicillin/Potassium Clav (Augmentin 875-125 Tablet) 875 MG-125 MG TABLET 1 TAB PO DAILY INFECTION Brexpiprazole (Rexulti) 1 MG TABLET 1 TAB PO DAILY MENTAL HEALTH (Reported) Budesonide/Formoterol Fumarate (Symbicort 160-4.5 Mcg Inhaler) 10.2 GM HFA.AER.AD 2 PUF INH BID RESPIRATORY (Reported) Calcium Carbonate/Vitamin D3 (Caltrate 600 + D Tablet) 600 MG-800 TABLET 1 TAB PO DAILY VITAMIN SUPPORT (Reported) Cholecalciferol (Vitamin D3) (Vitamin D) 2,000 UNIT CAPSULE 1 CAP PO DAILY SUPPLEMENT (Reported) Cyanocobalamin (Vitamin B-12) 1,000 MCG TABLET 1 TAB PO DAILY SUPPLEMENT ( Reported) Duloxetine HCl 20 MG CAPSULE.DR 1 CAP PO DAILY DEPRESSION (Reported) Folic Acid 1 MG TABLET 1 TAB PO DAILY VITAMIN SUPPORT (Reported) Gabapentin 300 MG CAPSULE 1 CAP PO BID TREMORS (Reported) Lipase/Protease/Amylase (Zenpep 5,000 Units Capsule) 5K-17K-27K CAPSULE.DR 1 CAP PO TIDAC PANCREAS (Reported) Losartan Potassium 100 MG TABLET 1 TAB PO DAILY HIGH CHOLESTROL (Reported) [Nebulizer] Omeprazole 40 MG CAPSULE.DR 1 CAP PO DAILY GI (Reported) Oxycodone HCl (Oxycontin) 40 MG TAB.ER.12H 1 TAB PO BID PAIN (Reported) Oxycodone HCl 5 MG TABLET 1 TAB PO BIDP PRN PAIN (Reported) Potassium Chloride 10 MEQ TAB.ER.PRT 1 TAB PO DAILY SUPPLEMENT (Reported) Sertraline HCl (Zoloft) 100 MG TABLET 1 TAB PO DAILY ANXIETY (Reported) (LE NORRIS,JANET) Past History Travel History Traveled to [place] past 21 day No Medical History Any Pertinent Medical History? 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: NONE Other Medical Hx: Patient has also had a nonspecific dermatitis with topical therapy History of MRSA: No History of VRE: No History of CDIFF: No Influenza Vaccine: 09/30/16 Tetanus Vaccine: 04/18/15 Surgical History Surgical History: 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 No (RIGO MIXON) Review of Systems Review of Systems Constitutional: Reports: no symptoms. EENTM: Reports: no symptoms. Respiratory: Reports: no symptoms. Cardiovascular: Reports: no symptoms. GI: Reports: no symptoms. Genitourinary: Reports: no symptoms. Musculoskeletal: Reports: no symptoms. Skin: Reports: no symptoms. Neurological/Psychological: Reports: no symptoms. Hematologic/Endocrine: Reports: no symptoms. Immunologic/Allergic: Reports: no symptoms. All Other Systems: Reviewed and Negative (RIGO MIXON) Physical Exam Physical Exam General Appearance: well developed/nourished, alert, awake, moderate distress Head: atraumatic, normal appearance Eyes: Bilateral: normal appearance. Ears, Nose, Throat: normal ENT inspection, hearing grossly normal Neck: normal inspection Respiratory: decreased breath sounds, respiratory distress (mild) Cardiovascular: regular rate/rhythm, tachycardia Extremities: normal inspection Neurologic/Psych: awake, alert, oriented x 3, normal gait, normal mood/affect Skin: intact, normal color Core Measures ACS in differential dx? No Severe Sepsis Present: No Septic Shock Present: No (RIGO MIXON) Progress Differential Diagnosis: asthma, AMI, bronchitis, costochondritis, CHF, COPD, musculoskeletal pain, pericarditis, pulmonary embolism, pneumonia, pneumothorax, rib fracture, unstable angina Plan of Care: Orders Procedure Date/time Status CBC WITHOUT DIFFERENTIAL 02/14 600 Active PT Evaluate & Treat 02/14 800 Active CBC WITHOUT DIFFERENTIAL 02/13 600 Complete BASIC ELECTROLYTES PLUS BUN&CR 02/13 600 Complete PT EVAL LOW COMPLEX 20 MIN 02/13 UNK Complete Gait Training 02/13 UNK Complete Discharge Patient 02/13 UNK Active MISSING MEDICATION FORM 02/13 UNK Active Current Medications Sig/Greg Start time Last Medication Dose Stop Time Status Admin Melatonin 5 MG AT BEDTIME 02/12 2345 AC 02/12 (Melatonin) 234 Nicotine 4 MG QPM PRN 02/12 2030 AC 02/12 (Nicotine) 2153 Nicotine 2 MG DAILY PRN 02/12 1900 AC 02/13 (Nicotine) 1153 Albuterol Sulfate 3 ML Q4P PRN 02/12 1145 AC (Proventil) Azithromycin 500 MG DAILY 02/12 1000 AC 02/13 (Zithromax) 0928 Sodium Chloride 250 ML (Normal Saline 0.9%) Calcium Carbonate 650 MG DAILY 02/12 1000 AC 02/13 (Calcium Carbonate) 0928 Ceftriaxone Sodium 1,000 MG DAILY 02/12 1000 AC 02/13 (Rocephin) 09 Cholecalciferol 1,000 IU DAILY 02/12 1000 AC 02/13 (Vitamin D) 09 Cyanocobalamin 1,000 MCG DAILY 02/12 1000 AC 02/13 (Vitamin B12) 09 Duloxetine HCl 20 MG DAILY 02/12 1000 AC 02/13 (Cymbalta) 09 Folic Acid 1 MG DAILY 02/12 1000 AC 02/13 (Folic Acid) 09 Prednisone 40 MG DAILY 02/12 1000 AC 02/13 0928 Sertraline HCl 100 MG DAILY 02/12 1000 AC 02/13 (Zoloft) 0928 Lipase/Protease/ 1 CAP TIDAC 02/12 08 AC 02/13 Amylase 1154 (Zenpep) Omeprazole 40 MG DAILY AC 02/12 07 AC 02/13 (Prilosec) 0642 Acyclovir 400 MG BID 02/11 220 AC 02/13 (Zovirax-Acyclovir 0929 200MG Capsule) Budesonide/ 2 PUF BID 02/11 2200 AC 02/13 Formoterol Fumarate 09 (Symbicort) Gabapentin 300 MG BID 02/11 2200 AC 02/13 (Neurontin) 0927 Heparin Sodium 5,000 UNIT Q8 02/11 2200 AC 02/13 (Porcine) 0642 Oxycodone HCl 40 MG BID 02/11 2200 AC 02/13 (OxyCONTIN) 0927 Alprazolam 1 MG BID PRN 02/11 2045 AC 02/13 (Xanax) 02/19 2044 0642 Brexpiprazole 1 MG DAILY 02/11 2045 AC 02/13 (Rexulti) 0928 Oxycodone HCl 5 MG BID PRN 02/11 2045 AC 02/12 (Roxicodone) 1730 Lorazepam 0 Q1P PRN 02/11 1900 AC (Ativan) Laboratory Tests 02/13/17 0610: Anion Gap 10, Estimated GFR > 60, BUN/Creatinine Ratio 16.0, CBC w Diff NO MAN DIFF REQ, RBC 3.68 L, MCV 74.3 L, MCH 23.9 L, RDW 20.3 H, MPV 8.6, Gran % 77.4 H, Lymphocytes % 12.3 L, Monocytes % 10.2 H, Eosinophils % 0.1, Basophils % 0 L, Absolute Granulocytes 2.4, Absolute Lymphocytes 0.4 L, Absolute Monocytes 0.3, Absolute Eosinophils 0, Absolute Basophils 0, PUBS MCHC 32.2 L Diagnostic Imaging: Viewed by Me: Radiology Read, CT Scan. Discussed w/RAD: Radiology Read, CT Scan. Radiology Impression: PATIENT: YESIKA HODGES PRESENT AGE: 66 PATIENT ACCOUNT NO: [id number] : 50 LOCATION: [facility] ORDERING PHYSICIAN: RIGO MERA SERVICE DATE: 02/11/17 EXAM TYPE : RAD - XRY-PORTABLE CHEST XRAY EXAMINATION: XR PORTABLE CHEST CLINICAL INFORMATION: Shortness of breath COMPARISON: 08/28/16 TECHNIQUE: Portable frontal view of the chest was obtained. FINDINGS: Lordotic projection. Minimal tortuosity aorta. Cardiac size is within normal limits. There is no alveolar edema. There is no consolidation of the left lung. There is a rounded density in the right upper chest centrally. There is no significant pleural fluid or pneumothorax. The mediastinum is underpenetrated. The rounded density in the medial right upper chest superimposes over the region of the anterior right third rib and posterior right fifth and sixth ribs. There are some other rib deformities suggested. Brief targeted review of CT 08/28/16 demonstrated sclerotic areas in the ribs perhaps related to previous injury. IMPRESSION: No definite pneumonia or edema. Density in the medial mid right chest could be related to the ribs. When patient condition allows a PA and lateral standard chest radiograph recommended DICTATED BY: YI HERNANDEZ MD DATE/TIME DICTATED: 02/11/171205 FIELD AGRONOMIST:YESICA DATE/TIME TRANSCRIBED:02/11/171205 CONFIDENTIAL, DO NOT COPY WITHOUT APPROPRIATE AUTHORIZATION. <Electronically signed in Other Vendor System> SIGNED BY: YI HERNANDEZ MD 02/11/17 1213, PATIENT: YESIKA HODGES PRESENT AGE: 66 PATIENT ACCOUNT NO: [id number] : 50 LOCATION: [facility] ORDERING PHYSICIAN: RIGO MERA SERVICE DATE: 02/11/17-1236 EXAM TYPE: CAT - CTA CHEST-PULMONARY EMBOLISM EXAMINATION: CT ANGIOGRAM OF THE CHEST WITH AND WITHOUT CONTRAST (CT PULMONARY ANGIOGRAM FOR PE) CLINICAL INFORMATION: Reason for Study:
Presumptive Dx: R/O PE, HYPOXIC, TACHY, COUGH
Signs Symptoms: ROOM 5
COMPARISON: 08/28/2016. TECHNIQUE: Prior to contrast administration, noncontrast localization images were obtained. Subsequently, multidetector volumetric imaging was performed from the thoracic inlet to below the diaphragms following the administration of 125 mL Optiray 350 intravenous contrast. No contrast reaction reported. Sagittal, coronal, and MIP oblique sagittal reformatted images were obtained on the CT workstation, uploaded to PACS, and reviewed. Total exam dose-length product 555 mGy-cm. FINDINGS: QUALITY OF STUDY/CONTRAST BOLUS: Somewhat limited due to respiratory motion. PULMONARY ARTERIES: No central or lobar pulmonary emboli are identified. Segmental and subsegmental emboli are difficult to entirely exclude, although none are seen due to respiratory motion misregistration. THORACIC AORTA: No aneurysm or dissection. LUNG: No evidence of focal consolidation although there are scattered ground- glass opacities with underlying bibasilar atelectasis most notably in the posterior and medial aspect of the right lower lobe which are new compared with 08/28/2016 likely inflammatory and possibly evolving infiltrate. Similar less prominent findings are identified in the lateral segment of the right middle lobe. There is a discoid focus of atelectasis in the superior segment of the right upper lobe posteriorly. PLEURA: No pleural effusion or pneumothorax. MEDIASTINUM: The thoracic aorta is tortuous and mildly ectatic without aneurysmal dilatation or evidence of an underlying dissection. There are mild atherosclerotic changes. Small pericardial effusion has increased slightly in the interval. No pathologically enlarged lymph nodes are seen. CHEST WALL/AXILLA : No axillary or internal mammary lymphadenopathy. OSSEOUS STRUCTURES: There is diffuse osteopenia with multiple compression deformities with loss of more than 50% of vertebral body height of the T12 level with new vertebroplasty changes since the previous exam. No new or increased compression deformities are identified. No aggressive lesions to suggest metastatic disease. UPPER ABDOMEN: Unremarkable. No reflux of contrast into the hepatic veins to suggest elevated right heart pressures. IMPRESSION: 1. Somewhat limited examination due to breathing artifact without evidence of filling defects to suggest pulmonary emboli. 2. Patchy areas of atelectasis and new scattered areas of ground-glass opacity most notably in the right lower lobe posteriorly suggesting an evolving inflammatory versus infectious process or small airway disease. 3. Diffuse osteopenia with multiple compression deformities again noted. VTE: Negative for pulmonary embolus. DICTATED BY: GISELE CEDENO MD DATE/TIME DICTATED:02/11/171405 FIELD AGRONOMIST:YESICA DATE/TIME TRANSCRIBED:02/11/171405 CONFIDENTIAL, DO NOT COPY WITHOUT APPROPRIATE AUTHORIZATION. <Electronically signed in Other Vendor System> SIGNED BY: GISELE CEDENO MD 02/11/17 1431 Initial ED EKG: normal intervals, normal p-waves, normal sinus rhythm, rate (115 ) (RIGO MIXON) Departure Departure Disposition: STILL A PATIENT Condition: Stable Clinical Impression Primary Impression: Right lower lobe pneumonia Secondary Impressions: COPD with acute exacerbation, Hypoxia Referrals: MILAN THAKUR MD (PCP/Family) Departure Forms: Customer Survey General Discharge Information Admission Note Spoke With: MILAN THAKUR MD Documentation of Exam: Documentation of any treatments & extenuating circumstances including Concerns Regarding Discharge (functional status, medication knowledge or non-compliance, living conditions, etc.) that warrant an admission rather than observation: Patient will require supplemental oxygen. IV antibiotics. IV steroids. Pulmonary consult. Serial breathing treatments. Patient's O2 saturation daily satting to high 70s. Patient would do poorly as an outpatient. High risk. (RIGO MIXON) Departure Prescriptions: Current Visit Scripts [Nebulizer] Albuterol Sulfate 3 ML INH Q4P PRN SHORTNESS OF BREATH #30 VIAL Amoxicillin/Potassium Clav (Augmentin 875-125 Tablet) 1 TAB PO DAILY #5 TAB PA/WELL SITE DRILLING ENGINEER Co-Sign Statement Statement: ED Attending supervision documentation- [X] I saw and evaluated the patient. I have also reviewed all the pertinent lab results and diagnostic results. I agree with the findings and the plan of care as documented in the PA's/WELL SITE DRILLING ENGINEER's documentation. [X] I have reviewed the ED Record and agree with the PA's/WELL SITE DRILLING ENGINEER's documentation. [] Additions or exceptions (if any) to the PAs/WELL SITE DRILLING ENGINEER's note and plan are summarized below: [] (LE NORRIS,JANET) Critical Care Note Critical Care Note Critical Care Time: non-applicable (RIGO MIXON)
--- NOTE | 2017-02-11 12:41 | NUR ---
PT DESATED TO 77% RA WITH HEART RATE OF 111BPM. MD MADE AWARE NOW ON 4L O2 NC WITH O2 95% . CONTINUOUS CARDIAC MONITORING MAINTAINED.
--- NOTE | 2017-02-11 12:54 | NUR ---
RESPIRATORY THERAPIST AT BEDSIDE EVALUATING AND ADMINISTERING TX TO PT
--- NOTE | 2017-02-11 13:37 | NUR ---
PT BEING TRANSPORTED TO CAT SCAN. STABLE CONDITION. O2 4L NC MAINTAINED
--- NOTE | 2017-02-11 13:51 | NUR ---
PT RETURNED FROM CAT SCAT STABLE CONDITION DENIES ALL PAIN. O2 NC AND CONTINUOUS CARDIAC MONITORING MAINTAINED
--- NOTE | 2017-02-11 14:31 | CT SCAN REPORT ---
EXAMINATION: CT ANGIOGRAM OF THE CHEST WITH AND WITHOUT CONTRAST (CT PULMONARY ANGIOGRAM FOR PE) CLINICAL INFORMATION: Reason for Study:
Presumptive Dx: R/O PE, HYPOXIC, TACHY, COUGH
Signs Symptoms: ROOM 5
COMPARISON: 08/28/2016. TECHNIQUE: Prior to contrast administration, noncontrast localization images were obtained. Subsequently, multidetector volumetric imaging was performed from the thoracic inlet to below the diaphragms following the administration of 125 mL Optiray 350 intravenous contrast. No contrast reaction reported. Sagittal, coronal, and MIP oblique sagittal reformatted images were obtained on the CT workstation, uploaded to PACS, and reviewed. Total exam dose-length product 555 mGy-cm. FINDINGS: QUALITY OF STUDY/CONTRAST BOLUS: Somewhat limited due to respiratory motion. PULMONARY ARTERIES: No central or lobar pulmonary emboli are identified. Segmental and subsegmental emboli are difficult to entirely exclude, although none are seen due to respiratory motion misregistration. THORACIC AORTA: No aneurysm or dissection. LUNG: No evidence of focal consolidation although there are scattered ground-glass opacities with underlying bibasilar atelectasis most notably in the posterior and medial aspect of the right lower lobe which are new compared with 08/28/2016 likely inflammatory and possibly evolving infiltrate. Similar less prominent findings are identified in the lateral segment of the right middle lobe. There is a discoid focus of atelectasis in the superior segment of the right upper lobe posteriorly. PLEURA: No pleural effusion or pneumothorax. MEDIASTINUM: The thoracic aorta is tortuous and mildly ectatic without aneurysmal dilatation or evidence of an underlying dissection. There are mild atherosclerotic changes. Small pericardial effusion has increased slightly in the interval. No pathologically enlarged lymph nodes are seen. CHEST WALL/AXILLA: No axillary or internal mammary lymphadenopathy. OSSEOUS STRUCTURES: There is diffuse osteopenia with multiple compression deformities with loss of more than 50% of vertebral body height of the T12 level with new vertebroplasty changes since the previous exam. No new or increased compression deformities are identified. No aggressive lesions to suggest metastatic disease. UPPER ABDOMEN: Unremarkable. No reflux of contrast into the hepatic veins to suggest elevated right heart pressures. IMPRESSION: 1. Somewhat limited examination due to breathing artifact without evidence of filling defects to suggest pulmonary emboli. 2. Patchy areas of atelectasis and new scattered areas of ground-glass opacity most notably in the right lower lobe posteriorly suggesting an evolving inflammatory versus infectious process or small airway disease. 3. Diffuse osteopenia with multiple compression deformities again noted. VTE: Negative for pulmonary embolus.
--- NOTE | 2017-02-11 15:51 | History & Physical ---
NIXON MATIAS 02/11/17 1551: General Information and HPI Allergies/Medications Allergies: Coded Allergies: morphine (ITCHING 10/03/15) Home Med list Albuterol Sulfate (Proair Hfa) 8.5 GM HFA.AER.AD 2 PUF INH PRN RESPIRATORY ( Reported) Alprazolam 1 MG TABLET 1 TAB PO BID ANXIETY Amlodipine (Norvasc 10MG) 10 MG TAB 1 TAB PO DAILY BP Brexpiprazole (Rexulti) 1 MG TABLET 1 TAB PO DAILY MENTAL HEALTH (Reported) Budesonide/Formoterol Fumarate (Symbicort 160-4.5 Mcg Inhaler) 10.2 GM HFA.AER.AD 2 PUF INH BID RESPIRATORY (Reported) Calcium Carbonate (Calcium 600) 600 MG TAB 1 TAB PO DAILY SUPPLEMENT Cyanocobalamin (Vitamin B-12) (Vitamin B12) 2,500 MCG TAB.CHEW 1,000 MCG PO DAILY SUPPLEMENT (Reported) Docusate Sodium (Colace) 100 MG CAPSULE 2 CAP PO DAILY constipation (Reported ) Ergocalciferol (Vitamin D2) (Vitamin D2) 50,000 UNIT CAPSULE 1 CAP PO QWED SUPPLEMENT (Reported) Folic Acid 1 MG TABLET 1 MG PO DAILY FOLIC ACID SUPPLEMENT (Reported) Gabapentin 300 MG CAPSULE 1 CAP PO QPM TREMORS (Reported) Levofloxacin (Levaquin) 750 MG TABLET 1 TAB PO DAILY pneumonia LIPASE/PROTEASE/AMYLASE (Pancrelipase Dr 5,000 Unit Cap) 5K-17K-27K CAPSULE. 1 CAP PO TID PANCREASE (Reported) Losartan (Cozaar) 100 MG TAB 1 TAB PO DAILY BP Omeprazole 40 MG CAPSULE. 1 CAP PO DAILY GI (Reported) Oxycodone HCl (Oxycontin) 40 MG TAB.ER.12H 1 TAB PO BID PAIN (Reported) Oxycodone HCl 5 MG TABLET 5 MG PO Q6P PRN PAIN SCALE 7-10 (SEVERE) Potassium Chloride 10 MEQ TAB.ER.PRT 1 TAB PO DAILY SUPPLEMENT (Reported) Prednisone 10 MG TABLET 0 PO DAILY COPD Please take 4 tabs(40mg) 08/31,09/01 3 tabs(30mg) 09/02,09/03 2 tabs(20mg) 09/04,09/05 1 tab(10mg) 09/06,09/07. Please stop on 09/07. SERTRALINE HCL (Sertraline Hydrochloride) 100 MG TABLET 1 TAB PO BID ANXIETY (Reported) Past History Travel History Traveled to [place] past 21 day No Medical History Neurological: NONE EENT: NONE Cardiovascular: NONE Respiratory: emphysema Gastrointestinal: pancreatitis, DIVERTICULITIS CHRONIC DIARRHEA INGUINAL HERNIA SBO Hepatic: ALCHOLIC HEPATITIS Renal: NONE Musculoskeletal: chronic back pain HERNIATED LUMBAR DISC POLYCYSTITIS Psychiatric: anxiety, depression, ALCOHOLISM Endocrine: NONE Blood Disorders: NONE Cancer(s): MULT MYELOMA CLINICAL RESOURCE MANAGER/Reproductive: NONE Other Medical Hx: Patient has also had a nonspecific dermatitis with topical therapy History of MRSA: No History of VRE: No History of CDIFF: No Influenza Vaccine: 05/07/16 Tetanus Vaccine: 04/18/15 Surgical History Surgical History: laminectomy toe amputation bilaterally due to deformity Past Family/Social History Family History Relations & Conditions if any Relation not specified for: *No pertinent family history Psychosocial History Services at Home: None Primary Language: Prydeinig ETOH Use: heavy use Illicit Drug Use: denies illicit drug use Living Will? no Functional Ability ADLs Independent: dressing, eating, toileting, bathing. Ambulation: independent IADLs Independent: shopping, housework, finances, food prep, telephone, transportation , medication admin. Core Measures/Miscellaneous Sepsis (View Protocol) Severe Sepsis Present: No Septic Shock Septic Shock Present: No
--- NOTE | 2017-02-11 16:27 | History & Physical ---
TENA LU 02/11/17 1626: General Information and HPI MD Statement: I have seen and personally examined YESIKA HODGES and documented this H&P. The patient is a 66 year old F who presented with a patient stated chief complaint of [cough, worsening shortness of breath]. Source of Information: patient Exam Limitations: no limitations History of Present Illness: According to the patient she's been feeling a little bit rundown for the past couple of days now. For the past 2 days or so she's been having cough and shortness of breath even while exerting herself to the restroom. She denies any fever or chills. She denies any chest discomfort, chest pain, palpitations, headache, dizziness, lightheadedness, abdominal pain, nausea, vomiting, diarrhea , constipation. She she states she can't really comment on whether or not she came in contact with sick person since she was out the other day and so may have contracted a ball. Of note she was seen in Dr. Rodriguez's office earlier this morning for her routine chemotherapy schedule however was found to be hypoxic to the 80s which is why he sent her to the ER. Of note patient is an avid ethanol and have few beers a day. Last drink was yesterday. Allergies/Medications Allergies: Coded Allergies: morphine (ITCHING 10/03/15) Home Med list Acyclovir 400 MG TABLET 1 TAB PO BID NEW SCRIPT FILLED 02/11 (Reported) Alprazolam 1 MG TABLET 1 TAB PO BIDP PRN ANXIETY (Reported) Amlodipine Besylate 10 MG TABLET 1 TAB PO DAILY HIGH BLOOD PRESSURE (Reported ) Brexpiprazole (Rexulti) 1 MG TABLET 1 TAB PO DAILY MENTAL HEALTH (Reported) Budesonide/Formoterol Fumarate (Symbicort 160-4.5 Mcg Inhaler) 10.2 GM HFA.AER.AD 2 PUF INH BID RESPIRATORY (Reported) Calcium Carbonate/Vitamin D3 (Caltrate 600 + D Tablet) 600 MG-800 TABLET 1 TAB PO DAILY VITAMIN SUPPORT (Reported) Cholecalciferol (Vitamin D3) (Vitamin D) 2,000 UNIT CAPSULE 1 CAP PO DAILY SUPPLEMENT (Reported) Cyanocobalamin (Vitamin B-12) 1,000 MCG TABLET 1 TAB PO DAILY SUPPLEMENT ( Reported) Duloxetine HCl 20 MG CAPSULE. 1 CAP PO DAILY DEPRESSION (Reported) Folic Acid 1 MG TABLET 1 TAB PO DAILY VITAMIN SUPPORT (Reported) Gabapentin 300 MG CAPSULE 1 CAP PO BID TREMORS (Reported) Lipase/Protease/Amylase (Lauryn Rendon 5,000 Units Capsule) [id number] CAPSULE. 1 CAP PO TIDAC PANCREAS (Reported) Losartan Potassium 100 MG TABLET 1 TAB PO DAILY HIGH CHOLESTROL (Reported) Omeprazole 40 MG CAPSULE. 1 CAP PO DAILY GI (Reported) Oxycodone HCl (Oxycontin) 40 MG TAB.ER.12H 1 TAB PO BID PAIN (Reported) Oxycodone HCl 5 MG TABLET 1 TAB PO BIDP PRN PAIN (Reported) Potassium Chloride 10 MEQ TAB.ER.PRT 1 TAB PO DAILY SUPPLEMENT (Reported) Sertraline HCl (Zoloft) 100 MG TABLET 1 TAB PO DAILY ANXIETY (Reported) Past History Travel History Traveled to [place] past 21 day No Medical History Neurological: NONE EENT: NONE Cardiovascular: NONE Respiratory: emphysema Gastrointestinal: pancreatitis, DIVERTICULITIS CHRONIC DIARRHEA INGUINAL HERNIA SBO Hepatic: ALCHOLIC HEPATITIS Renal: NONE Musculoskeletal: chronic back pain HERNIATED LUMBAR DISC POLYCYSTITIS Psychiatric: anxiety, depression, ALCOHOLISM Endocrine: NONE Blood Disorders: NONE 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 Other Medical Hx: Patient has also had a nonspecific dermatitis with topical therapy History of MRSA: No History of VRE: No History of CDIFF: No Influenza Vaccine: 05/07/16 Tetanus Vaccine: 04/18/15 Surgical History Surgical History: laminectomy toe amputation bilaterally due to deformity Past Family/Social History Family History Relations & Conditions if any MOTHER Hypotension Relation not specified for: *No pertinent family history Psychosocial History Services at Home: None Primary Language: German Smoking Status: Former Smoker (quit ) ETOH Use: heavy use Illicit Drug Use: denies illicit drug use Living Will? no Functional Ability ADLs Independent: dressing, eating, toileting, bathing. Ambulation: independent IADLs Independent: shopping, housework, finances, food prep, telephone, transportation , medication admin. 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 Denies: chills, fever. Cardiovascular: Denies: chest pain, edema, orthopena, palpitations. Respiratory: Reports: cough, short of breath, sputum production. Denies: hemoptysis, wheezing. GI: Denies: abdominal pain, constipation, diarrhea, nausea, vomiting. Genitourinary: Denies: discharge, frequency, hematuria, pain. Musculoskeletal: Reports: back pain. Neurological/Psychological: Denies: headache, numbness, tingling, tremors, unable to move lower ext, unable to move upper ext. Exam & Diagnostic Data Last 24 Hrs of Vital Signs/I&O Vital Signs Date Time Temp Pulse Resp B/P B/P Pulse O2 O2 Flow FiO2 Mean Ox Delivery Rate 02/11 1755 98.9 92 18 99/64 92 Nasal 2.0L Cannula 02/11 1637 99.2 90 20 94/51 96 Nasal 2.0L Cannula 02/11 1541 99.0 112 102/70 02/11 1416 97.0 110 24 109/70 96 Nasal 2.0L Cannula 02/11 1300 112 25 127/70 96 Nasal 4.0L Cannula 02/11 1256 96 Nasal 3.0L Cannula 02/11 1248 98.0 118 20 127/70 94 Nasal 2.0L Cannula 02/11 1225 97.2 120 132/90 79 Room Air 02/11 1211 98 Room Air 02/11 1136 97.0 118 20 120/80 98 Room Air Intake & Output 02/11 1600 02/11 0800 02/11 0000 Intake Total Output Total 600 Balance -600 Output, Urine 600 Patient 170 lb Weight Weight Reported by Patient Measurement Method Physical Exam General Appearance Alert, Oriented X3, Cooperative, No Acute Distress HEENT Atraumatic, PERRLA, EOMI, dry mucous membranes Neck Supple, No JVD Cardiovascular Normal S1, Normal S2, No Murmurs Lungs Clear to Auscultation, Normal Air Movement Abdomen Normal Bowel Sounds, Soft, No Tenderness Neurological Normal Speech, Strength at 5/5 X4 Ext, Normal Tone, Sensation Intact, Cranial Nerves 3-12 NL, Reflexes 2+ Extremities No Clubbing, No Cyanosis, No Edema, Normal Pulses, No Tenderness/ Swelling Vascular Normal Pulses, Pulses Symmetrical Last 24 Hrs of Labs/[place]: Laboratory Tests 02/11/17 1530: Urine Color YEL, Urine Clarity CLEAR, Urine pH 6.0, Ur Specific [place] <= 1.005 , Urine Protein NEG, Urine Ketones NEG, Urine Nitrite NEG, Urine Bilirubin NEG, Urine Urobilinogen 0.2, Ur Leukocyte Esterase NEG, Ur Microscopic EXAM NOT REQUIRED, Urine Hemoglobin NEG, Urine Glucose NEG 02/11/17 1153: Anion Gap 12, Estimated GFR > 60, BUN/Creatinine Ratio 22.0, Glucose 93, Calcium 9.4, Total Bilirubin 0.3, AST 19, ALT 27, Alkaline Phosphatase 51, Troponin I < 0.01, Total Protein 6.1 L, Albumin 3.8, Globulin 2.3, Albumin/Globulin Ratio 1.7, Cortisol PM Sample 10.0, D-Dimer High Sensitivty 205, CBC w Diff NO MAN DIFF REQ, RBC 3.70 L, MCV 73.2 L, MCH 23.8 L, RDW 19.5 H, MPV 7.6, Gran % 90.8 H, Lymphocytes % 3.3 L, Monocytes % 5.6, Eosinophils % 0.3, Basophils % 0 L, Absolute Granulocytes 7.3 H, Absolute Lymphocytes 0.3 L, Absolute Monocytes 0.5, Absolute Eosinophils 0, Absolute Basophils 0, PUBS MCHC 32.5 L Microbiology 02/11 1747 URINE ROUT: Legionella Antigen - COLB 02/11 1747 URINE ROUT: Streptococcus pneumoniae Antigen (M - COLB 02/11 1747 LOWER RESP: Respiratory Culture - COLB 02/11 1747 LOWER RESP: Gram Stain - COLB 02/11 1515 BLOOD: Blood Culture - RECD 02/11 1500 BLOOD: Blood Culture - RECD Diagnostic Data EKG Results Sinus tachycardia; HR: 115, normal axis, QTc: 404 CXR Results FINDINGS: Lordotic projection. Minimal tortuosity aorta. Cardiac size is within normal limits. There is no alveolar edema. There is no consolidation of the left lung. There is a rounded density in the right upper chest centrally. There is no significant pleural fluid or pneumothorax. The mediastinum is underpenetrated. The rounded density in the medial right upper chest superimposes over the region of the anterior right third rib and posterior right fifth and sixth ribs. There are some other rib deformities suggested. Brief targeted review of CT 08/28/16 demonstrated sclerotic areas in the ribs perhaps related to previous injury. IMPRESSION: No definite pneumonia or edema. Density in the medial mid right chest could be related to the ribs. When patient condition allows a PA and lateral standard chest radiograph recommended Other Results SERVICE DATE: 02/11/17-1235 EXAM TYPE: CAT - CTA CHEST-PULMONARY EMBOLISM EXAMINATION: CT ANGIOGRAM OF THE CHEST WITH AND WITHOUT CONTRAST (CT PULMONARY ANGIOGRAM FOR PE) CLINICAL INFORMATION: Reason for Study:
Presumptive Dx: R/O PE, HYPOXIC, TACHY, COUGH
Signs Symptoms: ROOM 5
COMPARISON: 08/28/2016. TECHNIQUE: Prior to contrast administration, noncontrast localization images were obtained. Subsequently, multidetector volumetric imaging was performed from the thoracic inlet to below the diaphragms following the administration of 125 mL Optiray 350 intravenous contrast. No contrast reaction reported. Sagittal, coronal, and MIP oblique sagittal reformatted images were obtained on the CT workstation, uploaded to PACS, and reviewed. Total exam dose-length product 555 mGy-cm. FINDINGS: QUALITY OF STUDY/CONTRAST BOLUS: Somewhat limited due to respiratory motion. PULMONARY ARTERIES: No central or lobar pulmonary emboli are identified. Segmental and subsegmental emboli are difficult to entirely exclude, although none are seen due to respiratory motion misregistration. THORACIC AORTA: No aneurysm or dissection. LUNG: No evidence of focal consolidation although there are scattered ground-glass opacities with underlying bibasilar atelectasis most notably in the posterior and medial aspect of the right lower lobe which are new compared with 08/28/2016 likely inflammatory and possibly evolving infiltrate. Similar less prominent findings are identified in the lateral segment of the right middle lobe. There is a discoid focus of atelectasis in the superior segment of the right upper lobe posteriorly. PLEURA: No pleural effusion or pneumothorax. MEDIASTINUM: The thoracic aorta is tortuous and mildly ectatic without aneurysmal dilatation or evidence of an underlying dissection. There are mild atherosclerotic changes. Small pericardial effusion has increased slightly in the interval. No pathologically enlarged lymph nodes are seen. CHEST WALL/AXILLA: No axillary or internal mammary lymphadenopathy. OSSEOUS STRUCTURES: There is diffuse osteopenia with multiple compression deformities with loss of more than 50% of vertebral body height of the T12 level with new vertebroplasty changes since the previous exam. No new or increased compression deformities are identified. No aggressive lesions to suggest metastatic disease. UPPER ABDOMEN: Unremarkable. No reflux of contrast into the hepatic veins to suggest elevated right heart pressures. IMPRESSION: 1. Somewhat limited examination due to breathing artifact without evidence of filling defects to suggest pulmonary emboli. 2. Patchy areas of atelectasis and new scattered areas of ground-glass opacity most notably in the right lower lobe posteriorly suggesting an evolving inflammatory versus infectious process or small airway disease. 3. Diffuse osteopenia with multiple compression deformities again noted. VTE: Negative for pulmonary embolus. Assessment/Plan Assessment: Mr. Hodges is a 66 year old woman with a PMH of multiple myeloma on chemotherapy every other week, multiple compression fractions, anxiety, depression, chronic previous alcohol abuse, hypertension, COPD, alcoholic hepatitis, diverticulitis, anxiety, hypertension was sent to the ED from Dr. Rodriguez's office with chief complaints of worsening shortness of breast that started last evening with desaturation to the ED is in his office. Patient endorses a dry cough with symptoms going on for the past 2 days. Denies any fever, chest pain. Vitals at the time of admission blood pressure 120/80, respiratory rate of 20, tachycardic to 118, afebrile saturating 98% on 2 L of oxygen via nasal cannula. Labs pertinent for. Normal white blood cell count of 8100, microcytic anemia with an H&H of 8.8/27.1, platelet count of 176,000. Serum chemistries revealed a sodium 134, potassium of 4.7, bicarbonate 26, anion gap of 12, BUN 11 with a creatinine of 0.5. LFTs unremarkable with an AST/ALT of 19/27, total bili 0.3, alkaline phosphatase of 51 with a troponin first set negative at less than 0.01. Cortisol p.m. pending. D-dimer within normal limits 205. UA unremarkable. Chest x-ray showed no definite evidence of pneumonia or edema, density in the medial mid right chest could be related to the ribs. CT chest was done to rule out for pulmonary embolism which was a somewhat limited exam due to breathing artifact without evidence of filling defects. There are patchy areas of atelectasis and new scattered areas of groundglass opacity most of the in the right lower lobe posteriorly suggesting evolving inflammatory versus infectious process or small airway disease. There is diffuse osteopenia with multiple compression deformities noted. Negative for PE. Last echocardiogram in August 2015 showed mild to moderate aortic sclerosis with no valvular stenosis or insufficiency, left ventricular ejection fraction 60-65%. In the ER she received Solu-Medrol 125 mg IV 1, Atrovent and Proventil 1, ceftriaxone and azithromycin 1 and a bolus of normal saline. EKG revealed sinus tachycardia; HR: 115, normal axis, QTc: 404 - Assessment and plan Admit patient to general medicine #Acute hypoxic respiratory failure Most likely secondary to pneumonia versus COPD exacerbation Start patient on ceftriaxone and azithromycin for community-acquired pneumonia as well as on prednisone 40 mg daily TRC/Nebs Continue to provide supplemental oxygen and wean off. Follow-up Legionella and strep pneumo urinary antigens Follow-up will respiratory culture if any Follow-up blood cultures 2 Hydrate with IV fluids at 75 animals per hour for 1 bag #Multiple myeloma Currently on chemotherapy with cyber D every other week. Courtesy call with Dr. Rodriguez's office in a.m. as patient was scheduled to get her dose for chemotherapy today. #Alcohol dependence Maintained on CIWA Ativan per CIWA protocol #Depression Continue on Cymbalta 20 mg daily, Zoloft 100 mg daily, Brexpiprazole #GERD Continue on Prilosec 40 mg by mouth daily #Pancreatic insufficiency Continue on send Pap 1 capsule 3 times a day before meals #Anxiety Continue on Xanax 1 mg twice a day when necessary by mouth #Chronic pack pain Continue on her home dose of oxycodone 5 mg milligrams twice a day when necessary, OxyContin 40 mg twice a day by mouth DVT prophylaxis Heparin 5000 international units 3 times a day subcutaneous Diet Heart healthy Code Status Full code As Ranked By This Provider Problem List: 1. COPD with acute exacerbation Core Measures/Miscellaneous Acute Coronary Syndrome ACS Diagnosis: No Cerebrovascular Accident CVA/TIA Diagnosis: No Congestive Heart Failure CHF Diagnosis: No VTE (View Protocol) VTE Risk Factors: Age > 40 No [facility] VTE prophylaxis d/t: No contraindications No VTE Pharm Prophylaxis d/t: No contraindications VTE Diagnosis: No VTE Type: NONE VTE Confirmed by (Test): NONE Sepsis (View Protocol) Severe Sepsis Present: No Septic Shock Septic Shock Present: No Miscellaneous Documentation Attending Case Discussed With: MILAN THAKUR MD Primary Care Physician: MILAN THAKUR MD Patient sees these Specialists Dr. Ferro - oncolgist Dr. Taylor Christian - psychiatrist Level of Patient Care: General Medicine Resident Review Statement Resident Statement: admitted by resident MILAN THAKUR MD 02/11/17 1657: Attending MD Review Statement Attending Statement Attending MD Statement: examined this patient, discuss w/resident/PA/DIRECTOR HOME, agreed w/resident/PA/DIRECTOR HOME, discussed with family, reviewed EMR data (avail), discussed with nursing, discussed with case mgmt, reviewed images, amended to note Attending Assessment/Plan: 65 yo F with past medical history of multiple myeloma on CHEMO, chronic back pain due to herniated disc, Multiple compression fractures due to multiple myeloma, anxiety, depression, chronic previous alcohol use, hypertension, pancreatitis, alcoholic hepatitis, diverticulitis, dermatitis Now comes with hypoxia, sputum production and bibasilar infiltrates in am patient with sig immune def due to advanced myeloma here with * CAP * Sig copd aswell with not much wheezing * CAP, RT ll * Multiple myeloma on chemo and hence immunosuppresed with recurrent infections. Pt is responding to cyber - d * ANemia and chronic cytopenia due to myeloma stable * Chronic pain on narcotics stable * Depression stable * Pancreatic insuff on supp * Mild hyponatremia * Chronic anemia * chronic vertebral fracture REC Admit IV abx ceftriaxone and azithro Prednisone 40 qd and wean in few days Cont out pt meds hold bp meds if bp is low Cont out pt pain meds and reduce dose by 25 percent to avoid withdrawal cont oxygen Monitor labx WIll follow closely
--- NOTE | 2017-02-11 16:40 | NUR ---
PT RESTING COMFORTABLY. ABX ADMINISTERED ORDERED. CONTINUOUS MONITORING MENTAINED
--- NOTE | 2017-02-11 16:56 | NUR ---
MD SOTO AT BEDSIDE, MADE AWARE PT BP 95/50 VERBAL ORDER TO RUN IV FLUID AT 250ML/HR
--- NOTE | 2017-02-11 16:58 | Admission Certification ---
Admission Certification Certification Statement - As attending physician, I certify that at the time of - admission, based on clinical presentation, severity of - symptoms, need for further diagnostic testing and - therapeutic interventions, and risk of adverse outcomes - without in-hospital treatment, in my clinical assessment, - this patient requires an acute hospital stay for a minimum - of two nights or longer. I have also considered psychsocial - factors such as support system, advanced age, financial - issues, cognitive issues, and failed out-patient treatments, - past re-admission history, safety of patient, and lack of - compliance as applicable. Specific rationale supporting this admission is: PNEUMONIA
--- NOTE | 2017-02-11 17:14 | NUR ---
1L 0.9% NS INFUSING AT 250ML/HR ORDERED.
[2017-02-11] MEDS ORDERED: ALPRAZOLAM1 M2 PO (18:09)
[2017-02-11] MEDS ORDERED: AMLODIPINE BESY10 M1 PO (18:12)
[2017-02-11] MEDS ORDERED: CALTRATE 600 +1 EACH PO (18:18)
[2017-02-11] MEDS ORDERED: FOLIC ACID1 M1 PO (18:30)
[2017-02-11] MEDS ORDERED: ZENPEP DR 5,001 EACH PO (18:49)
[2017-02-11] MEDS ORDERED: LOSARTAN POTAS100 M1 PO (18:53)
[2017-02-11] MEDS ORDERED: ZOLOFT100 M1 PO ×2 (18:58→18:59)
[2017-02-11] MEDS ORDERED: DULOXETINE HCL20 MG PO (19:10)
[2017-02-11] MEDS ORDERED: OXYCODONE HCL5 M1 PO (19:10)
[2017-02-11] MEDS ORDERED: VITAMIN B-121000 MC3 PO (19:11)
[2017-02-11] MEDS ORDERED: VITAMIN D2000 UNIT PO (19:11)
[2017-02-11] MEDS ORDERED: ACYCLOVIR400 M1 PO (19:12)
--- NOTE | 2017-02-11 20:03 | NUR ---
REPORT GIVEN TO CRISTINA MADISON ON 2
[2017-02-11 21:48] VITALS: BP 140/70
[2017-02-11 22:00] VITALS: BP 140/70
[2017-02-12 02:00] VITALS: BP 120/60
[2017-02-12 06:00] VITALS: BP 100/60
--- NOTE | 2017-02-12 06:32 | NUR ---
A&Ox3, VSS, ORIENTED TO FLOOR. USES CALL [facility]. WILL CONTINUE TO MONITOR THIS SHIFT.
[2017-02-12 06:45] VITALS: BP 100/60
[2017-02-12 08:50] LABS: ABSOLUTE BASOPHIL COUNT 0 /CUMM (0.0-0.2); ABSOLUTE EOSINOPHIL COUNT 0 /CUMM (0.0-0.7); ABSOLUTE GRANULOCYTE CT 3.8 /CUMM (1.4-6.5); ABSOLUTE LYMPH COUNT 0.1 /CUMM (1.2-3.4); ABSOLUTE MONOCYTE COUNT 0.2 /CUMM (0.10-0.60); BASOPHIL % 0 % (0.0-2.0); EOSINOPHIL % 0.3 % (0-5); GRANULOCYTE % 92.5 % (42.2-75.2); HEMATOCRIT 23.8 % (37-47); MEAN CORPUSCULAR HGB 23.7 PG (27.0-31.0); MEAN CORPUSCULAR HGB CONC 32.1 G/DL (33.0-37.0); MEAN CORPUSCULAR VOLUME 73.9 FL (81.0-99.0); PLATELET COUNT 164 /CUMM (130-400); RBC DISTRIBUTION WIDTH 20.1 % (11.5-14.5); RED BLOOD CELL CT 3.22 /CUMM (4.20-5.40); WHITE BLOOD CELL COUNT 4.1 /CUMM (4.8-10.8)
[2017-02-12 13:51] VITALS: BP 132/62
--- NOTE | 2017-02-12 14:54 | PN- Att Addend ---
Attending Addendum Attending Brief Note Covering a contralateral Patient feeling better, not using her oxygen now. "Wants to go home" Patient is a febrile no major changes on physical exam. Her last white count was 4100. We'll continue present treatment, get out of bed, and reassess in the morning 24 TOTALS 02/12 0000 02/11 0000 Intake Total 1240 Output Total 1250 Balance -10 Intake, IV 1000 Intake, Oral 240 Output, Urine 1250 Patient 170 lb Weight Weight Reported by Patient Measurement Method Current Medications Sig/Greg Start time Last Medication Dose Route Stop Time Status Admin Acyclovir 400 MG BID 02/11 2200 AC 02/12 PO 1018 Albuterol Sulfate 3 ML Q4P PRN 02/12 1145 AC INH Alprazolam 1 MG BID PRN 02/11 2045 AC 02/11 PO 02/18 2044 2218 Azithromycin 500 MG DAILY 02/12 1000 AC 02/12 Sodium Chloride 250 ML IV 1017 Azithromycin 500 MG ONCE ONE 02/11 1500 DC 02/11 Sodium Chloride 250 ML IV 02/11 1559 1635 Brexpiprazole 1 MG DAILY 02/11 2045 AC 02/12 PO 1018 Budesonide/ 2 PUF BID 02/11 2200 AC 02/12 Formoterol Fumarate INH 1019 Calcium Carbonate 650 MG DAILY 02/12 1000 AC 02/12 PO 1019 Ceftriaxone Sodium 1,000 MG DAILY 02/12 1000 AC 02/12 IV 1017 Ceftriaxone Sodium 0 .STK-MED ONE 02/11 1610 DC .ROUTE Ceftriaxone Sodium 1,000 MG ONCE ONE 02/11 1500 DC 02/11 IV 02/11 1501 1635 Cholecalciferol 1,000 IU DAILY 02/12 1000 AC 02/12 PO 1019 Cyanocobalamin 1,000 MCG DAILY 02/12 1000 AC 02/12 PO 1018 Duloxetine HCl 20 MG DAILY 02/12 1000 AC 02/12 PO 1018 Folic Acid 1 MG DAILY 02/12 1000 AC 02/12 PO 1018 Gabapentin 300 MG BID 02/11 220 AC 02/12 PO 1018 Heparin Sodium 5,000 UNIT Q8 02/11 220 AC 02/12 (Porcine) SC 0457 Lipase/Protease/ 1 CAP TIDAC 02/12 0800 AC 02/12 Amylase PO 1017 Lorazepam 0 Q1P PRN 02/11 1900 AC IV Methylprednisolone 0 .STK-MED ONE 02/11 1610 DC .ROUTE Omeprazole 40 MG DAILY AC 02/12 0700 AC 02/12 PO 0457 Oxycodone HCl 40 MG BID 02/11 2200 AC 02/12 PO 1025 Oxycodone HCl 5 MG BID PRN 02/11 2045 AC 02/12 PO 1022 Prednisone 40 MG DAILY 02/12 1000 AC 02/12 PO 1017 Sertraline HCl 100 MG DAILY 02/12 1000 AC 02/12 PO 1017 Sodium Chloride 1,000 ML Q13H 02/11 1845 DC 02/11 IV 02/12 0744 2204 Sodium Chloride 1,000 ML BOLUS ONE 02/11 1700 DC 02/11 IV 02/11 1759 1719 Laboratory Tests 02/12/17 0610: Anion Gap 9, Estimated GFR > 60, BUN/Creatinine Ratio 18.0, CBC w Diff NO MAN DIFF REQ, RBC 3.22 L, MCV 73.9 L, MCH 23.7 L, RDW 20.1 H, MPV 9.0, Gran % 92.5 H, Lymphocytes % 3.2 L, Monocytes % 4.0, Eosinophils % 0.3, Basophils % 0 L, Absolute Granulocytes 3.8, Absolute Lymphocytes 0.1 L, Absolute Monocytes 0.2, Absolute Eosinophils 0, Absolute Basophils 0, PUBS MCHC 32.1 L 02/11/17 1530: Urine Color YEL, Urine Clarity CLEAR, Urine pH 6.0, Ur Specific [place] <= 1.005 , Urine Protein NEG, Urine Ketones NEG, Urine Nitrite NEG, Urine Bilirubin NEG, Urine Urobilinogen 0.2, Ur Leukocyte Esterase NEG, Ur Microscopic EXAM NOT REQUIRED, Urine Hemoglobin NEG, Urine Glucose NEG 02/11/17 1153: Anion Gap 12, Estimated GFR > 60, BUN/Creatinine Ratio 22.0, Glucose 93, Calcium 9.4, Total Bilirubin 0.3, AST 19, ALT 27, Alkaline Phosphatase 51, Troponin I < 0.01, Total Protein 6.1 L, Albumin 3.8, Globulin 2.3, Albumin/Globulin Ratio 1.7, Cortisol PM Sample 10.0, D-Dimer High Sensitivty 205, CBC w Diff NO MAN DIFF REQ, RBC 3.70 L, MCV 73.2 L, MCH 23.8 L, RDW 19.5 H, MPV 7.6, Gran % 90.8 H, Lymphocytes % 3.3 L, Monocytes % 5.6, Eosinophils % 0.3, Basophils % 0 L, Absolute Granulocytes 7.3 H, Absolute Lymphocytes 0.3 L, Absolute Monocytes 0.5, Absolute Eosinophils 0, Absolute Basophils 0, PUBS MCHC 32.5 L Vital Signs Date Time Temp Pulse Resp B/P B/P Pulse O2 O2 Flow FiO2 Mean Ox Delivery Rate 02/12 1351 97.8 93 18 132/62 98 Room Air 02/12 1117 100 Nasal 2.0L Cannula 02/12 1058 Nasal 2.0L Cannula 02/12 1058 92 Nasal 2.0L Cannula 02/12 0645 97.7 80 20 100/60 98 Nasal 4.0L Cannula 02/12 0600 97.7 80 20 100/60 08 0200 97.5 88 20 120/60 07 2200 97.2 90 20 140/70 07/07 2148 97.2 90 20 140/70 97 07/07 2100 93 Nasal 4.0L Cannula 02/11 1948 96.1 87 20 100/54 95 Nasal 4.0L Cannula 02/11 1850 99.0 88 20 107/57 94 Nasal 2.0L Cannula 02/11 1755 98.9 92 18 99/64 92 Nasal 2.0L Cannula 02/11 1637 99.2 90 20 94/51 96 Nasal 2.0L Cannula 02/11 1541 99.0 112 102/70
--- NOTE | 2017-02-12 17:01 | PN- Housestaff ---
Subjective Follow-up For: COPD Subjective: I saw and examined the patient today. Patient had no complaints. Denied cough, shortness of breath, fever, chills, chest pain, nausea or vomiting. Review of Systems Constitutional: Denies: see HPI. Objective Last 24 Hrs of Vital Signs/I&O Vital Signs Date Time Temp Pulse Resp B/P B/P Pulse O2 O2 Flow FiO2 Mean Ox Delivery Rate 02/12 1600 Room Air 02/12 1351 97.8 93 18 132/62 98 Room Air 02/12 1117 100 Nasal 2.0L Cannula 02/12 1058 Nasal 2.0L Cannula 02/12 1058 92 Nasal 2.0L Cannula 02/12 0800 98 Nasal 2.0L Cannula 02/12 0645 97.7 80 20 100/60 98 Nasal 4.0L Cannula 02/12 0600 97.7 80 20 100/60 /08 0200 97.5 88 20 120/60 07/07 2200 97.2 90 20 140/70 07/07 2148 97.2 90 20 140/70 97 /07 2100 93 Nasal 4.0L Cannula 02/11 1948 96.1 87 20 100/54 95 Nasal 4.0L Cannula 02/11 1850 99.0 88 20 107/57 94 Nasal 2.0L Cannula 02/11 1755 98.9 92 18 99/64 92 Nasal 2.0L Cannula Intake & Output 02/12 1600 07/08 0800 07/08 0000 Intake Total 600 1080 1240 Output Total 300 650 Balance 300 1080 590 Intake, IV 189 382 3949 Intake, Oral 480 240 Output, Urine 300 650 Patient 170 lb Weight Physical Exam General Appearance: Alert, Oriented X3, Cooperative Cardiovascular: Regular Rate, Normal S1, Normal S2 Lungs: Clear to Auscultation Abdomen: Normal Bowel Sounds, Soft, No Tenderness Extremities: Normal Pulses Assessment/Plan Assessment: Patient is a 66-year-old female with past medical history of multiple myeloma on chemotherapy every other week, multiple compression fractures, anxiety, depression, history of alcohol abuse, hypertension, COPD presented to the ED from Dr. yoly dietz office with worsening shortness of breath. 1. Acute hypoxic respiratory failure Most likely secondary to pneumonia versus COPD exacerbation Patient has been afebrile, with normal white blood cell count, saturating well on room air, physical exam is normal. Continue on ceftriaxone and azithromycin for community-acquired pneumonia as well as on prednisone 40 mg daily TRC/Nebs Negative for Legionella and strep pneumo urinary antigens Follow-up blood cultures 2 2. Multiple myeloma Currently on chemotherapy with cyber D every other week. 3. Alcohol dependence Maintained on CIWA Ativan per CIWA protocol 4. Depression Continue on Cymbalta 20 mg daily, Zoloft 100 mg daily, Brexpiprazole 5. GERD Continue on Prilosec 40 mg by mouth daily 6. Pancreatic insufficiency Continue on send Pap 1 capsule 3 times a day before meals 7. Anxiety Continue on Xanax 1 mg twice a day when necessary by mouth 8. Chronic pack pain Continue on her home dose of oxycodone 5 mg milligrams twice a day when necessary, OxyContin 40 mg twice a day by mouth DVT prophylaxis Heparin 5000 international units 3 times a day subcutaneous Diet Heart healthy Code Status Full code Problem List: 1. Pneumonia 2. Multiple myeloma 3. COPD with acute exacerbation Pain Ratin Pain Location: None Pain Goal: Remain pain free Pain Plan: Continue home meds Tomorrow's Labs & Rationales: CBC BEP BEP
[2017-02-12 21:58] VITALS: BP 140/70
[2017-02-13] VITALS: BP 140/70
[2017-02-13 02:00] VITALS: BP 140/70
[2017-02-13 06:00] VITALS: BP 140/80
[2017-02-13 06:27] VITALS: BP 140/80
[2017-02-13 08:11] LABS: ABSOLUTE BASOPHIL COUNT 0 /CUMM (0.0-0.2); ABSOLUTE EOSINOPHIL COUNT 0 /CUMM (0.0-0.7); ABSOLUTE GRANULOCYTE CT 2.4 /CUMM (1.4-6.5); ABSOLUTE LYMPH COUNT 0.4 /CUMM (1.2-3.4); ABSOLUTE MONOCYTE COUNT 0.3 /CUMM (0.10-0.60); BASOPHIL % 0 % (0.0-2.0); EOSINOPHIL % 0.1 % (0-5); GRANULOCYTE % 77.4 % (42.2-75.2); HEMATOCRIT 27.4 % (37-47); MEAN CORPUSCULAR HGB 23.9 PG (27.0-31.0); MEAN CORPUSCULAR HGB CONC 32.2 G/DL (33.0-37.0); MEAN CORPUSCULAR VOLUME 74.3 FL (81.0-99.0); MEAN PLATELET VOLUME 8.6 FL (7.4-10.4); PLATELET COUNT 163 /CUMM (130-400); RBC DISTRIBUTION WIDTH 20.3 % (11.5-14.5); RED BLOOD CELL CT 3.68 /CUMM (4.20-5.40); WHITE BLOOD CELL COUNT 3.1 /CUMM (4.8-10.8)
--- NOTE | 2017-02-13 09:12 | PN- Housestaff ---
Subjective Follow-up For: COPD Exacerbation Subjective: Examined the patient morning. Stable for discharge. Review of Systems Constitutional: Denies: see HPI. Objective Last 24 Hrs of Vital Signs/I&O Vital Signs Date Time Temp Pulse Resp B/P B/P Pulse O2 O2 Flow FiO2 Mean Ox Delivery Rate 02/13 1401 97 Room Air Room Air 02/13 0627 97.8 81 20 140/80 97 Room Air 02/13 0600 97.8 81 20 140/80 / 0200 97.9 93 20 140/70 / 0000 97.9 93 20 140/70 07/ 0000 98 Room Air Intake & Output 02/13 1600 02/13 0800 02/13 0000 Intake Total 480 200 800 Output Total Balance 480 200 800 Intake, Oral 480 200 800 Physical Exam General Appearance: Alert, Oriented X3, Cooperative Current Medications: Current Medications Sig/Greg Start time Last Medication Dose Route Stop Time Status Admin Acyclovir 400 MG BID 02/11 2200 DCD 02/13 PO 29 Albuterol Sulfate 3 ML Q4P PRN 02/12 1145 DCD INH Alprazolam 1 MG BID PRN 02/11 2045 DCD 02/13 PO 02/18 2044 0642 Azithromycin 500 MG DAILY 02/12 1000 DCD 02/13 Sodium Chloride 250 ML IV 0928 Brexpiprazole 1 MG DAILY 02/11 2045 DCD 02/13 PO 28 Budesonide/ 2 PUF BID 02/11 2200 DCD 02/13 Formoterol Fumarate INH 0929 Calcium Carbonate 650 MG DAILY 02/12 1000 DCD 02/13 PO 28 Ceftriaxone Sodium 1,000 MG DAILY 02/12 1000 DCD 02/13 IV 0928 Cholecalciferol 1,000 IU DAILY 02/12 1000 DCD 02/13 PO 27 Cyanocobalamin 1,000 MCG DAILY 02/12 1000 DCD 02/13 PO 28 Duloxetine HCl 20 MG DAILY 02/12 1000 DCD 02/13 PO 28 Folic Acid 1 MG DAILY 02/12 1000 DCD 02/13 PO 27 Gabapentin 300 MG BID 02/11 2200 DCD 02/13 PO 926 Heparin Sodium 5,000 UNIT Q8 02/11 2200 DCD 02/13 (Porcine) SC 0642 Lipase/Protease/ 1 CAP TIDAC 02/13 800 DCD 02/13 Amylase PO 1154 Lorazepam 0 Q1P PRN 02/11 1900 DCD IV Melatonin 5 MG AT BEDTIME 02/12 2345 DCD 02/12 PO 2349 Nicotine 4 MG QPM PRN 02/12 2030 DCD 02/12 PO 2153 Nicotine 2 MG DAILY PRN 02/12 1900 DCD 02/13 PO 1153 Omeprazole 40 MG DAILY AC 02/12 0700 DCD 02/13 PO 0642 Oxycodone HCl 40 MG BID 02/11 2200 DCD 02/13 PO 0927 Oxycodone HCl 5 MG BID PRN 02/11 2045 DCD 02/12 PO 1730 Prednisone 40 MG DAILY 02/12 1000 DCD 02/13 PO 0928 Sertraline HCl 100 MG DAILY 02/12 1000 DCD 02/13 PO 0928 Last 24 Hrs of Lab/Guzman Results Last 24 Hrs of Labs/Mics: Laboratory Tests 02/13/17 0610: Anion Gap 10, Estimated GFR > 60, BUN/Creatinine Ratio 16.0, CBC w Diff NO MAN DIFF REQ, RBC 3.68 L, MCV 74.3 L, MCH 23.9 L, RDW 20.3 H, MPV 8.6, Gran % 77.4 H, Lymphocytes % 12.3 L, Monocytes % 10.2 H, Eosinophils % 0.1, Basophils % 0 L, Absolute Granulocytes 2.4, Absolute Lymphocytes 0.4 L, Absolute Monocytes 0.3, Absolute Eosinophils 0, Absolute Basophils 0, PUBS MCHC 32.2 L Assessment/Plan Assessment: Patient is a 66-year-old female with past medical history of multiple myeloma on chemotherapy every other week, multiple compression fractures, anxiety, depression, history of alcohol abuse, hypertension, COPD presented to the ED from Dr. yoly dietz office with worsening shortness of breath. Stable for discharge. 1. Acute hypoxic respiratory failure Most likely secondary to pneumonia versus COPD exacerbation Patient has been afebrile, with normal white blood cell count, saturating well on room air, physical exam is normal. Discharged on Augmentin 875mg x 5 days. prednisone 40 mg daily TRC/Nebs Negative for Legionella and strep pneumo urinary antigens Follow-up blood cultures 2 2. Multiple myeloma Currently on chemotherapy with cyber D every other week. 3. Alcohol dependence Maintained on CIWA Ativan per [place] protocol 4. Depression Continue on Cymbalta 20 mg daily, Zoloft 100 mg daily, Brexpiprazole 5. GERD Continue on Prilosec 40 mg by mouth daily 6. Pancreatic insufficiency Continue on send Pap 1 capsule 3 times a day before meals 7. Anxiety Continue on Xanax 1 mg twice a day when necessary by mouth 8. Chronic pack pain Continue on her home dose of oxycodone 5 mg milligrams twice a day when necessary, OxyContin 40 mg twice a day by mouth DVT prophylaxis Heparin 5000 international units 3 times a day subcutaneous Diet Heart healthy Code Status Full code Problem List: 1. COPD with exacerbation 2. Pneumonia Pain Ratin Pain Location: None Pain Goal: Remain pain free Pain Plan: Pain Pathway Tomorrow's Labs & Rationales: None
[2017-02-13] MEDS ORDERED: ALBUTEROL2.5 MG/3 M INH (14:15)
[2017-02-13] MEDS ORDERED: AUGMENTIN 875-1 EACH PO (14:18)
--- NOTE | 2017-02-13 14:32 | Patient Discharge Instructions ---
Discharge Instructions General Discharge Information You were seen/treated for: COPD Exacerbation Diet Continue normal diet: Yes Acute Coronary Syndrome Inclusion Criteria At DC or during hospital stay patient has or had the following: ACS DIAGNOSIS No Discharge Core Measures Meds if any: Prescribed or Continued at Discharge JAYESH/ARB if EF <40% No Aspirin No Meds if any: NOT Prescribed or Continued at Discharge Congestive Heart Failure Inclusion Criteria At DC or during hospital stay patient has or had the following: CHF DIAGNOSIS No Discharge Core Measures Meds if any: Prescribed or Continued at Discharge Meds if any: NOT Prescribed or Continued at Discharge Cerebrovascular accident Inclusion Criteria At DC or during hospital stay patient has or had the following: CVA/TIA Diagnosis No Discharge Core Measures Meds if any: Prescribed or Continued at Discharge Meds if any: NOT Prescribed or Continued at Discharge Venous thromboembolism Inclusion Criteria VTE Diagnosis No VTE Type NONE VTE Confirmed by (Test) NONE Discharge Core Measures - Per Current guidelines, there needs to be overlap - treatment for the first 5 days of Warfarin therapy. - If discharged on Warfarin prior to 5 days of - overlap therapy, the patient will need to be - assessed for post discharge needs including - *Post discharge parental anticoagulation - *Warfarin and/or parental anticoagulation education - *Follow up date to check INR post discharge At least 5 days overlap therapy as Inpatient No Meds if any: Prescribed or Continued at Discharge Note: Overlap Therapy is Warfarin and Anticoagulant Meds if any: NOT Prescribed or Continued at Discharge
[2017-02-13] MEDS ORDERED: Nebulizer (15:24)
--- NOTE | 2017-02-13 15:41 | PN- Att Addend ---
Attending Addendum Attending Brief Note Covering attending note: Patient feeling and looking much better, anxious to go home, patient in no respiratory distress vital signs are stable, oxygen saturation is acceptable at 94-96% on room air her lungs are fairly clear. Will switch to by mouth antibiotics for 5 more days and will get a nebulizing machine to use if needed to use her medications as directed, follow-up with Dr. Keith and Dr. Rodriguez 24 TOTALS 02/13 0000 02/12 0000 Intake Total 2480 1240 Output Total 300 1250 Balance 2180 -10 Intake, IV 1200 1000 Intake, Oral 1280 240 Output, Urine 300 1250 Patient 170 lb Weight Weight Reported by Patient Measurement Method Current Medications Sig/Greg Start time Last Medication Dose Route Stop Time Status Admin Acyclovir 400 MG BID 02/11 2200 AC 02/13 PO 928 Albuterol Sulfate 3 ML Q4P PRN 02/12 1145 AC INH Alprazolam 1 MG BID PRN 02/11 2045 AC 02/13 PO 02/18 204 0642 Azithromycin 500 MG DAILY 02/12 1000 AC 02/13 Sodium Chloride 250 ML IV 28 Brexpiprazole 1 MG DAILY 02/11 2045 AC 02/13 PO 0928 Budesonide/ 2 PUF BID 02/11 2200 AC 02/13 Formoterol Fumarate INH 0929 Calcium Carbonate 650 MG DAILY 02/12 1000 AC 02/13 PO 28 Ceftriaxone Sodium 1,000 MG DAILY 02/12 1000 AC 02/13 IV 0928 Cholecalciferol 1,000 IU DAILY 02/12 1000 AC 02/13 PO 09 Cyanocobalamin 1,000 MCG DAILY 02/12 1000 AC 02/13 PO 927 Docusate Sodium 100 MG .STK-MED ONE 02/12 1832 DC PO 02/12 1833 Duloxetine HCl 20 MG DAILY 02/12 1000 AC 02/13 PO 0928 Folic Acid 1 MG DAILY 02/12 1000 AC 02/13 PO 09 Gabapentin 300 MG BID 02/11 2200 AC 02/13 PO 926 Heparin Sodium 5,000 UNIT Q8 02/11 220 AC 02/13 (Porcine) SC 0642 Lipase/Protease/ 1 CAP TIDAC 02/12 0800 AC 02/13 Amylase PO 1154 Lorazepam 0 Q1P PRN 02/11 1900 AC IV Melatonin 5 MG AT BEDTIME 02/12 2345 AC 02/12 PO 2349 Nicotine 4 MG QPM PRN 02/12 2030 AC 02/12 PO 2153 Nicotine 2 MG DAILY PRN 02/12 1900 AC 02/13 PO 1153 Omeprazole 40 MG DAILY AC 02/12 0700 AC 02/13 PO 0642 Oxycodone HCl 40 MG BID 02/11 2200 AC 02/13 PO 0927 Oxycodone HCl 5 MG BID PRN 02/11 2045 AC 02/12 PO 1730 Prednisone 40 MG DAILY 02/12 1000 AC 02/13 PO 0928 Sertraline HCl 100 MG DAILY 02/12 1000 AC 02/13 PO 0928 Laboratory Tests 02/13/17 0610: Anion Gap 10, Estimated GFR > 60, BUN/Creatinine Ratio 16.0, CBC w Diff NO MAN DIFF REQ, RBC 3.68 L, MCV 74.3 L, MCH 23.9 L, RDW 20.3 H, MPV 8.6, Gran % 77.4 H, Lymphocytes % 12.3 L, Monocytes % 10.2 H, Eosinophils % 0.1, Basophils % 0 L, Absolute Granulocytes 2.4, Absolute Lymphocytes 0.4 L, Absolute Monocytes 0.3, Absolute Eosinophils 0, Absolute Basophils 0, PUBS MCHC 32.2 L 02/12/17 0610: Anion Gap 9, Estimated GFR > 60, BUN/Creatinine Ratio 18.0, CBC w Diff NO MAN DIFF REQ, RBC 3.22 L, MCV 73.9 L, MCH 23.7 L, RDW 20.1 H, MPV 9.0, Gran % 92.5 H, Lymphocytes % 3.2 L, Monocytes % 4.0, Eosinophils % 0.3, Basophils % 0 L, Absolute Granulocytes 3.8, Absolute Lymphocytes 0.1 L, Absolute Monocytes 0.2, Absolute Eosinophils 0, Absolute Basophils 0, PUBS MCHC 32.1 L Microbiology 02/11 1747 URINE ROUT: Legionella Antigen - COMP 02/11 1747 URINE ROUT: Streptococcus pneumoniae Antigen (M - COMP
== END 2017-02-13 16:10 | DRG 193 ==
LOC: ERH 11:26 → 2NA 16:34 → ERHI 16:34 → ENRESERV 19:39 → EDTRNSPT 20:11 → ENTRNSPT 20:11 → CMPTRNSPT 20:25 → 2NA 20:32 → ENPENDDIS 02-13 14:45 → 2NA 02-13 16:10
PROVIDERS: Internal Medicine Infectious Disease; Physician Assistant Medical; ADMIT Internal Medicine Pulmonary Disease
DX: J18.9 Pneumonia, unspecified organism (principal); J96.01 Acute respiratory failure with hypoxia; J44.1 Chronic obstructive pulmonary disease with (acute) exacerbation; C90.00 Multiple myeloma not having achieved remission; K86.89 Other specified diseases of pancreas; E87.1 Hypo-osmolality and hyponatremia; K70.10 Alcoholic hepatitis without ascites; M85.80 Other specified disorders of bone density and structure, unspecified site; I70.0 Atherosclerosis of aorta; K21.9 Gastro-esophageal reflux disease without esophagitis; F32.9 Major depressive disorder, single episode, unspecified; F41.9 Anxiety disorder, unspecified; D64.9 Anemia, unspecified; F10.20 Alcohol dependence, uncomplicated
CPT/HCPCS: 2NASP; 81003; 82436; 87040; 87070; 87449; 87450; 93005; 93010; 96365; 96366; 97116-GO; 97161-GP; J0456; J0696; J1644; J2930; J3490; J7040

== ENCOUNTER 2018-02-07 09:44 | Inpatient (IN) | payer OTHER ==
[~2018-02-07] VITALS: Ht 165.1 cm; Wt 66.2 kg
[~2018-02-07 09:44] MED LIST changes: +ALBUTEROL2.5 MG/3 M INH; +ALPRAZOLAM1 M2 PO; +AMLODIPINE BESY10 M1 PO; +CALTRATE 600 +1 EACH PO; +DULOXETINE HCL20 MG PO; +FOLIC ACID1 M1 PO; +LOSARTAN POTAS100 M1 PO; +Nebulizer; +VITAMIN B-121000 MC3 PO; +VITAMIN D2000 UNIT PO; +ZENPEP DR 5,001 EACH PO; +ZOLOFT100 M1 PO
[2018-02-07 10:08] LABS: ABSOLUTE BASOPHIL COUNT 0.1 /CUMM (0.0-0.2); ABSOLUTE EOSINOPHIL COUNT 0.1 /CUMM (0.0-0.7); ABSOLUTE GRANULOCYTE CT 3.3 /CUMM (1.4-6.5); ABSOLUTE LYMPH COUNT 0.5 /CUMM (1.2-3.4); ABSOLUTE MONOCYTE COUNT 0.3 /CUMM (0.10-0.60); BASOPHIL % 2.8 % (0.0-2.0); EOSINOPHIL % 3.1 % (0-5); GRANULOCYTE % 75.7 % (42.2-75.2); MEAN CORPUSCULAR HGB CONC 35.6 G/DL (33.0-37.0); MEAN CORPUSCULAR VOLUME 98.5 FL (81.0-99.0); MEAN PLATELET VOLUME 7.5 FL (7.4-10.4); RBC DISTRIBUTION WIDTH 15.8 % (11.5-14.5); RED BLOOD CELL CT 2.54 /CUMM (4.20-5.40); WHITE BLOOD CELL COUNT 4.3 /CUMM (4.8-10.8)
--- NOTE | 2018-02-07 10:25 | ED DYSPNEA/ASTHMA COMPLAINT ---
History of Present Illness General Chief Complaint: Dyspnea (COPD, CHF, Other) Stated Complaint: BIBA, SOB Source: patient, old records, EMS Exam Limitations: no limitations Vital Signs & Intake/Output Vital Signs & Intake/Output Vital Signs Date Time Temp Pulse Resp B/P B/P Pulse O2 O2 Flow FiO2 Mean Ox Delivery Rate 02/07 1224 84 20 95/63 95 BIPAP 02/07 1146 84 24 92/62 95 BIPAP 02/07 1145 87 95 02/07 1048 94 24 89/58 97 BIPAP 30% 02/07 1013 70 Non ReBreather 02/07 1006 98.5 110 24 113/69 88 BIPAP 02/07 1000 87 BIPAP 100% 02/07 0945 112 87 Allergies Coded Allergies: morphine (ITCHING 01/23/18) Reconcile Medications Albuterol Sulfate 2.5 MG/3 ML (0.083 %) VIAL.NEB 3 ML INH Q4P PRN SHORTNESS OF BREATH Alprazolam 1 MG TABLET 1 TAB PO BIDP PRN ANXIETY (Reported) Amlodipine Besylate 10 MG TABLET 1 TAB PO DAILY HIGH BLOOD PRESSURE (Reported ) Brexpiprazole (Rexulti) 1 MG TABLET 1 TAB PO DAILY MENTAL HEALTH (Reported) Budesonide/Formoterol Fumarate (Symbicort 160-4.5 Mcg Inhaler) 10.2 GM HFA.AER.AD 2 PUF INH BID RESPIRATORY (Reported) Calcium Carbonate/Vitamin D3 (Caltrate 600 + D Tablet) 600 MG-800 TABLET 1 TAB PO DAILY VITAMIN SUPPORT (Reported) Cholecalciferol (Vitamin D3) (Vitamin D) 2,000 UNIT CAPSULE 1 CAP PO DAILY SUPPLEMENT (Reported) Cyanocobalamin (Vitamin B-12) 1,000 MCG TABLET 1 TAB PO DAILY SUPPLEMENT ( Reported) Duloxetine HCl 20 MG CAPSULE. 1 CAP PO DAILY DEPRESSION (Reported) Folic Acid 1 MG TABLET 1 TAB PO DAILY VITAMIN SUPPORT (Reported) Gabapentin 300 MG CAPSULE 1 CAP PO BID TREMORS (Reported) Lipase/Protease/Amylase (Zenpep 5,000 Units Capsule) [id number] CAPSULE.DR 1 CAP PO TIDAC PANCREAS (Reported) Losartan Potassium 100 MG TABLET 1 TAB PO DAILY HIGH CHOLESTROL (Reported) Omeprazole 40 MG CAPSULE. 1 CAP PO DAILY GI (Reported) Oxycodone HCl (Oxycontin) 40 MG TAB.ER.12H 1 TAB PO BID PAIN (Reported) Oxycodone HCl 5 MG TABLET 1 TAB PO BIDP PRN PAIN (Reported) Potassium Chloride 10 MEQ TAB.ER.PRT 1 TAB PO DAILY SUPPLEMENT (Reported) Sertraline HCl (Zoloft) 100 MG TABLET 1 TAB PO DAILY ANXIETY (Reported) Triage Note: 67 Y/O FEMALE BIBA S/P RAPID RESPONSE [facility]. PER REPORT, PT WAS THERE TODAY FOR BLOOD TRANSFUSION HOWEVER NEVER RECEIVED ANY TREATMENT DUE TO SUDDEN ONSET ACUTE RESPIRATORY DISTRESS. PT ARRIVES TO ED WITH EYES CLOSED; OPENES TO VERBAL STIMULI AND ANSWERS QUESTIONS APPROPRIATELY AND THEN QUICKLY FALLS BACK TO SLEEP. REPORTS SUDDEN ONSET SOB WITH DIAPHORESIS. RR 20'S. INITIAL 02 SAT 70'S ON NRB MASK. CRACKLES HEARD IN ALL LUNG ELIAS. NO PEDAL EDEMA APPRECIATED. PT DENIES CHEST PAIN. DENIES COUGH OR URI SYMPTOMS. DENIES OTHER COMPLAINTS. SINUS TACH IN LOW 100'S. AFEBRILE. MD KENNEDY AND RT JUSTIN AT BEDSIDE ON ARRIVAL TO ED Triage Nurses Notes Reviewed? yes Onset: Just prior to arrival Duration: minute(s):, constant, continues in ED Timing: recent history Severity: severe Activities at Onset: rest Prior Episodes/Possible Cause: illness exposure Modifying Factors: Improves With: rest. Worsens With: movement. Associated Symptoms: cough, wheezing, weakness LMP (ages 10-50): post menopausal : No Patient currently breastfeeds: No HPI: Prior to admission patient was at the infusion center for transfusion of packed red blood cells noted to be dyspneic found to have oxygen saturation of 70%. The patient complains of a cough. She denies fever chills nausea vomiting diarrhea abdominal pain chest pain shortness of breath headache dysuria rash bleeding. Past History Travel History Traveled to [place] past 21 day No Medical History Any Pertinent Medical History? 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 No Review of Systems Review of Systems Constitutional: Reports: no symptoms. EENTM: Reports: no symptoms. Respiratory: Reports: see HPI, short of breath. Cardiovascular: Reports: no symptoms. GI: Reports: no symptoms. Genitourinary: Reports: no symptoms. Musculoskeletal: Reports: no symptoms. Skin: Reports: no symptoms. Neurological/Psychological: Reports: no symptoms. Hematologic/Endocrine: Reports: no symptoms. Immunologic/Allergic: Reports: no symptoms. All Other Systems: Reviewed and Negative Physical Exam Physical Exam General Appearance: well developed/nourished, alert, awake, anxious, severe distress, obese Head: atraumatic, normal appearance Eyes: Bilateral: normal appearance, PERRL, EOMI. Ears, Nose, Throat: normal pharynx, normal ENT inspection, hearing grossly normal Neck: normal inspection, supple, full range of motion, no midline tenderness Respiratory: chest non-tender, crackles, rhonchi, respiratory distress Cardiovascular: regular rate/rhythm, normal peripheral pulses, tachycardia, norml femoral pulses equa Peripheral Pulses: 4+ carotid (R), 4+ carotid (L) Gastrointestinal: normal bowel sounds, soft, non-tender, no organomegaly Extremities: normal inspection, normal capillary refill, normal range of motion, no edema Neurologic/Psych: awake, alert, oriented x 3, pool player II-XII nml as tested Skin: intact, normal color, warm/dry Lymphatic: no anterior cervical ba Core Measures ACS in differential dx? No CVA/TIA Diagnosis No Sepsis Present: No Sepsis Focused Exam Completed? No Progress Differential Diagnosis: asthma, bronchitis, CHF, COPD, pneumonia Plan of Care: Orders Procedure Date/time Status Patient Data 02/07 1225 Active Admit to inpatient 02/07 1109 Active BIPAP 02/07 1045 Complete ARTERIAL BLOOD GAS (GEN) 02/07 1040 Complete AEROSOL (GEN) 02/07 1000 Complete ARTERIAL BLOOD GAS (GEN) 02/07 0955 Complete TROPONIN LEVEL 02/07 0955 Complete MAGNESIUM 02/07 0955 Complete LIPASE 07/03 0955 Complete COMPREHENSIVE METABOLIC PANEL 02/07 955 Complete CBC WITHOUT DIFFERENTIAL 02/07 955 Complete B-TYPE NATRIURETIC PEP (BNP) 02/07 955 Complete EKG 02/07 947 Active BIPAP 02/07 945 Complete Laboratory Tests 02/07/18 1040: pH 7.30 *L, pCO2 47 H, pO2 97, HCO3 22, ABG O2 Sat (Measured) 95.0 L, Carboxyhemoglobin 1.1 L, O2 Concentration % 100, Respiration Rate 24, O2 Delivery Method VISION, Vent Mode ST, Expiratory Pressure 6, Inspiratory Pressure 24, Phlebotomy Draw Site LEFT RADIAL 02/07/18 0959: Anion Gap 14, Estimated GFR > 60, BUN/Creatinine Ratio 15.0, Glucose 101 H, Calcium 9.3, Magnesium 1.9, Total Bilirubin 0.5, AST 32, ALT 26, Alkaline Phosphatase 98, Troponin I < 0.01, Uta-[id number] Pept 570 H, Total Protein 8.9 H, Albumin 4.1, Globulin 4.8 H, Albumin/Globulin Ratio 0.9 L, Lipase < 10 L, CBC w Diff NO MAN DIFF REQ, RBC 2.54 L, MCV 98.5, MCH 35.0 H, MCHC 35.6, RDW 15.8 H, MPV 7.5, Gran % 75.7 H, Lymphocytes % 11.0 L, Monocytes % 7.4, Eosinophils % 3.1, Basophils % 2.8 H, Absolute Granulocytes 3.3, Absolute Lymphocytes 0.5 L, Absolute Monocytes 0.3, Absolute Eosinophils 0.1, Absolute Basophils 0.1 Diagnostic Imaging: Viewed by Me: Radiology Read. Discussed w/RAD: Radiology Read. CXR Impression: Lungs are suboptimally evaluated due to hypoinflation and bronchovascular crowding. Inflammatory airway wall thickening would be difficult to exclude. There is no focal consolidation. No overt pneumonia or pleural effusion. Initial ED EKG: normal axis, normal intervals, normal p-waves, normal QRS complex, no ST T wave changes Prior EKG: unchanged Rhythm Strip: sinus tachycardia Departure Departure Disposition: STILL A PATIENT Condition: Stable Clinical Impression Primary Impression: Respiratory failure Secondary Impressions: Anemia, COPD with acute exacerbation, Hyperkalemia Referrals: Inna NORRIS,Blas Staton (PCP/Family) Departure Forms: Customer Survey General Discharge Information Admission Note Spoke With: Ajit Evans MD Documentation of Exam: Documentation of any treatments & extenuating circumstances including Concerns Regarding Discharge (functional status, medication knowledge or non-compliance, living conditions, etc.) that warrant an admission rather than observation: ICU monitoring Supplemental oxygen BiPAP serial beta agonist nebs pulmonary evaluation medication adjustment physical therapy continuing care discharge planning. Critical Care Note Critical Care Note Critical Care Time: 30-74 min (45)
[2018-02-07 10:35] LABS: PLATELET COUNT 229 /CUMM (130-400)
--- NOTE | 2018-02-07 11:10 | RADIOLOGY REPORT ---
EXAMINATION: XR PORTABLE CHEST CLINICAL INFORMATION: Multiple myeloma. Chronic obstructive pulmonary disease. Rhonchi and rales. COMPARISON: Bone survey of 01/03/2018. TECHNIQUE: Portable AP view of the chest. FINDINGS: The left arm peripherally inserted catheter extends to level of the mid superior vena cava. Lungs are symmetrically hypoinflated; this causes crowding of the bronchovascular structures. Inflammatory thickening of airway liu would be difficult to exclude. No focal consolidation or pleural effusion. Considering technique and degree of hypoinflation, the cardiac silhouette size is considered to be normal. There are a few old rib fractures in this patient with known multiple myeloma. IMPRESSION: Lungs are suboptimally evaluated due to hypoinflation and bronchovascular crowding. Inflammatory airway wall thickening would be difficult to exclude. There is no focal consolidation. No overt pneumonia or pleural effusion.
--- NOTE | 2018-02-07 12:23 | History & Physical ---
See Addendum General Information and HPI MD Statement: I have seen and personally examined YESIKA HODGES and documented this H&P. The patient is a 67 year old F who presented with a patient stated chief complaint of [shortness of breath]. Source of Information: patient, old records Exam Limitations: clinical condition History of Present Illness: 67 yo F with PMH of hypertension, emphysema, pancreatitis, anxiety, depression, multiple myeloma on chemotherapy, multiple compression fractions, chronic previous alcohol abuse was brought to the ED after a rapid response was called while the patient was at the cancer centre earlier today. Limited history is gathered from the patient as she becomes hypoxic with talking. Patient states she was at the cancer center earlier when she started feeling short of breath. She used her inhaler but it did not help her. Next thing she realized was that she was a patient. Per records, she was brought to the ER as she was found to be saturating in the 70s. The patient was scheduled for a blood transfusion at the Infusion Center at [facility] but her symptoms started prior to her receiving the transfuison. The was called. He states that the patient had been in her usual state of health until this morning. Yesterday, they met Dr Ferro for an appointment. They went grocery shopping later and she was doing alright, functioning independently and did not complain of any exertional shortness of breath. This morning he dropped her to the infusion center and was told to pick her later but got a call half an hour later explaining situation about his . She denies any headache, lightheadedness, chest pain, abdominal pain or any pain. Endorses constipation. States taking all of her home medications earlier today. Of note, the patient was here last week after a fall. She had a CT head which showed small acute subdural hematoma and an elevated Ca level. She was transferred to [place] at the time for further managment of her condition. Allergies/Medications Allergies: Coded Allergies: morphine (ITCHING 01/23/18) Home Med list Acyclovir 400 MG TABLET 1 TAB PO BID Prophylaxis (Reported) Albuterol Sulfate 2.5 MG/3 ML (0.083 %) VIAL.NEB 3 ML INH Q4P PRN SHORTNESS OF BREATH Alprazolam 1 MG TABLET 1 TAB PO BID Anxiety (Reported) Amlodipine Besylate 10 MG TABLET 1 TAB PO DAILY HIGH BLOOD PRESSURE (Reported ) Brexpiprazole (Rexulti) 1 MG TABLET 1 TAB PO DAILY MENTAL HEALTH (Reported) Budesonide/Formoterol Fumarate (Symbicort 160-4.5 Mcg Inhaler) 10.2 GM HFA.AER.AD 2 PUF INH BID RESPIRATORY (Reported) Calcium Carbonate/Vitamin D3 (Caltrate 600 + D Tablet) 600 MG-800 TABLET 1 TAB PO DAILY VITAMIN SUPPORT (Reported) Cholecalciferol (Vitamin D3) (Vitamin D) 2,000 UNIT CAPSULE 1 CAP PO DAILY SUPPLEMENT (Reported) Cyanocobalamin (Vitamin B-12) 1,000 MCG TABLET 1 TAB PO DAILY SUPPLEMENT ( Reported) Duloxetine HCl 20 MG CAPSULE. 1 CAP PO DAILY DEPRESSION (Reported) Folic Acid 1 MG TABLET 1 TAB PO DAILY VITAMIN SUPPORT (Reported) Gabapentin 300 MG CAPSULE 1 CAP PO QAM TREMORS (Reported) Gabapentin 600 MG TABLET 1 TAB PO QPM Neuropathy (Reported) Lipase/Protease/Amylase (Zenluis Rendon 5,000 Units Capsule) 5K-17K-27K CAPSULE. 1 CAP PO TIDAC PANCREAS (Reported) Omeprazole 40 MG CAPSULE. 1 CAP PO DAILY GI (Reported) Oxycodone HCl 5 MG TABLET 1 TAB PO Q4-6 PRN PRN Pain (Reported) Oxycodone HCl (Oxycontin) 40 MG TAB.ER.12H 1 TAB PO BID PAIN (Reported) Potassium Chloride 10 MEQ TAB.ER.PRT 1 TAB PO DAILY SUPPLEMENT (Reported) Sennosides/Docusate Sodium (Senna S Tablet) 8.6 MG-50 MG TABLET 1 TAB PO QPM Constipation (Reported) Sertraline HCl (Zoloft) 100 MG TABLET 1 TAB PO BID Mental health (Reported) Past History Travel History Traveled to [place] past 21 day No Medical History Neurological: NONE EENT: NONE Cardiovascular: hypertension Respiratory: emphysema Gastrointestinal: pancreatitis, DIVERTICULITIS CHRONIC DIARRHEA INGUINAL HERNIA SBO Hepatic: ALCHOLIC HEPATITIS Renal: NONE Musculoskeletal: chronic back pain HERNIATED LUMBAR DISC POLYCYSTITIS Psychiatric: anxiety, depression, ALCOHOLISM Endocrine: NONE Blood Disorders: NONE Cancer(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 no Functional Ability ADLs Independent: dressing, eating, toileting, bathing. Ambulation: independent IADLs Independent: shopping, housework, finances, food prep, telephone, transportation , medication admin. Review of Systems Review of Systems Constitutional: Denies: chills, fever. Cardiovascular: Denies: chest pain, palpitations. Respiratory: Reports: short of breath. GI: Denies: abdominal pain. Genitourinary: Reports: no symptoms. Musculoskeletal: Reports: no symptoms. Skin: Reports: no symptoms. Neurological/Psychological: Denies: headache. Exam & Diagnostic Data Last 24 Hrs of Vital Signs/I&O Vital Signs Date Time Temp Pulse Resp B/P B/P Pulse O2 O2 Flow FiO2 Mean Ox Delivery Rate 02/07 1224 84 20 95/63 95 BIPAP 02/07 1146 84 24 92/62 95 BIPAP 02/07 1145 87 95 02/07 1048 94 24 89/58 97 BIPAP 30% 02/07 1013 70 Non ReBreather 02/07 1006 98.5 110 24 113/69 88 BIPAP 02/07 1000 87 BIPAP 100% 02/07 0945 112 87 Intake & Output 02/07 1600 02/07 0800 02/07 0000 Intake Total Output Total Balance Patient 170 lb Weight Weight Estimated Measurement Method Physical Exam General Appearance Alert, Oriented X3, Cooperative, Moderate Distress Skin No Rashes, No Breakdown Skin Temp/Moisture Exam: Warm/Dry Sepsis Skin Exam (color): Normal for Ethnicity HEENT Atraumatic Cardiovascular Normal S1, Normal S2, No Murmurs, tachycardic Lungs decreased breath sounds, mild wheezing, mild inspiratory crackles Abdomen Soft, No Tenderness Neurological Normal Speech Extremities No Edema Last 24 Hrs of Labs/Guzman: Laboratory Tests 02/07/18 1040: pH 7.30 *L, pCO2 47 H, pO2 97, HCO3 22, ABG O2 Sat (Measured) 95.0 L, Carboxyhemoglobin 1.1 L, O2 Concentration % 100, Respiration Rate 24, O2 Delivery Method VISION, Vent Mode ST, Expiratory Pressure 6, Inspiratory Pressure 24, Phlebotomy Draw Site LEFT RADIAL 02/07/18 0959: Anion Gap 14, Estimated GFR > 60, BUN/Creatinine Ratio 15.0, Glucose 101 H, Calcium 9.3, Magnesium 1.9, Total Bilirubin 0.5, AST 32, ALT 26, Alkaline Phosphatase 98, Troponin I < 0.01, Bcq-A-Zkzxushadzf Pept 570 H, Total Protein 8.9 H, Albumin 4.1, Globulin 4.8 H, Albumin/Globulin Ratio 0.9 L, Lipase < 10 L, CBC w Diff NO MAN DIFF REQ, RBC 2.54 L, MCV 98.5, MCH 35.0 H, MCHC 35.6, RDW 15.8 H, MPV 7.5, Gran % 75.7 H, Lymphocytes % 11.0 L, Monocytes % 7.4, Eosinophils % 3.1, Basophils % 2.8 H, Absolute Granulocytes 3.3, Absolute Lymphocytes 0.5 L, Absolute Monocytes 0.3, Absolute Eosinophils 0.1, Absolute Basophils 0.1 Assessment/Plan Assessment: 67 yo F with PMH of hypertension, emphysema, pancreatitis, anxiety, depression, multiple myeloma on chemotherapy, multiple compression fractions, chronic previous alcohol abuse was brought to the ED after a rapid response was called while the patient was at the cancer centre earlier today. In the ED she received 1g Ceftriaxone, IV lasix 40mg, IV Solu-Medrol 125mg and nebulizer treatments. Assessment: 1. Acute Hypoxic Respiratory Failure 2. Hyperkalemia 3. History of Multiple Myeloma 4. History of Chronic Back Pain 5. PICC line 6. History of Subdural Hematoma Plan: * Admit patient to ICU * Continue supplemental oxygen to maintain target sats >92%. Currently on BiPAP and 65% oxygen. * TRC/nebs as needed. * She already received one dose of IV Ceftriaxone in the ER. No further Ceftriaxone needed but will add IV Azithromycin 500mg for 3-5 days. * Start IV SoluMedrol 40mg q6 from tomorrow * IV Protonix * Repeat ABG if needed * Pulmonary consultation * Repeat BEP later today in evening for hyperkalemia. If her potassium is still high will consider giving kayexalate. * Senna/Miralax for constipation prn * Diet: Regular. NPO for now until respiratory functions improves. * DVT Prophylaxis: SC Lovenox * Code Status: Full Code As Ranked By This Provider Problem List: 1. Hyperkalemia Core Measures/Misc (04/24) Acute Coronary Syndrome ACS Diagnosis: No Congestive Heart Failure Congestive Heart Failure Diagnosis No Cerebrovascular Accident CVA/TIA Diagnosis: No VTE (View Protocol) VTE Risk Factors Age>40 No Mechanical VTE Prophylaxis d/t N/A MechProphylax Ordered No VTE Pharm Prophylaxis d/t NA PharmProphylax ordered Sepsis (View protocol) Sepsis Present: No If YES complete Sepsis Event Note If YES complete Sepsis Event Note
--- NOTE | 2018-02-07 13:32 | Admission Certification ---
Admission Certification Certification Statement - As attending physician, I certify that at the time of - admission, based on clinical presentation, severity of - symptoms, need for further diagnostic testing and - therapeutic interventions, and risk of adverse outcomes - without in-hospital treatment, in my clinical assessment, - this patient requires an acute hospital stay for a minimum - of two nights or longer. I have also considered psychsocial - factors such as support system, advanced age, financial - issues, cognitive issues, and failed out-patient treatments, - past re-admission history, safety of patient, and lack of - compliance as applicable. Specific rationale supporting this admission is: Acute onset of respiratory failure in a patient with emphysema, multiple myeloma
--- NOTE | 2018-02-07 13:35 | PN- Att Addend ---
Attending Addendum Attending Brief Note Covering attending note: 57-year-old white female with many comorbidities, history of emphysema and multiple myeloma, was at the infusion center to get a transfusion and before even starting the transfusion she became acute short of breath and hypoxemic and was sent to the emergency room in the emergency room she was put on BiPAP with improvement of her symptoms. Will admit the patient and evaluate her respiratory status. Chest x-ray showed hypoinflation but no visible infiltrates. ABGs no evidence. Will get a pulmonary consultation and Dr. Skinner to reassume the case as soon as he returns. Current Medications Sig/Greg Start time Last Medication Dose Route Stop Time Status Admin Albuterol Sulfate 3 ML ONCE ONE 02/07 1000 DC 02/07 INH 02/07 1001 1000 Ceftriaxone Sodium 0 .STK-MED ONE 02/07 1248 DC .ROUTE Ceftriaxone Sodium 1,000 MG ONCE ONE 02/07 1215 DC 07/ IV 02/07 1216 1253 Furosemide 40 MG ONCE ONE 02/07 1045 DC / IV 02/07 1046 1044 Furosemide 0 .STK-MED ONE 02/07 1042 DC IV Ipratropium [place] 2.5 ML ONCE ONE 02/07 1000 DC 07/ INH / 1001 1000 Methylprednisolone 0 .STK-MED ONE / 1001 DC .ROUTE Methylprednisolone 125 MG ONCE ONE 02/07 1000 DC 07/03 IV / 1001 1010 Vital Signs Date Time Temp Pulse Resp B/P B/P Pulse O2 O2 Flow FiO2 Mean Ox Delivery Rate 02/07 1224 84 20 95/63 95 BIPAP / 1146 84 24 92/62 95 BIPAP / 1145 87 95 / 1048 94 24 89/58 97 BIPAP 30% 02/07 1013 70 Non ReBreather 02/07 1006 98.5 110 24 113/69 88 BIPAP / 1000 87 BIPAP 100% 02/07 0945 112 87 Intake & Output 02/07 1600 Intake Total Output Total Balance Patient 170 lb Weight Weight Estimated Measurement Method
[2018-02-07 14:00] VITALS: BP 100/0
[2018-02-07] MEDS ORDERED: GABAPENTIN600 M1 PO (14:35)
[2018-02-07] MEDS ORDERED: ACYCLOVIR400 M1 PO (14:50)
[2018-02-07] MEDS ORDERED: SENNA S TABLET1 EACH PO (14:50)
--- NOTE | 2018-02-07 15:17 | Cons- CRCU ---
Vaishali NORRIS,[facility] 02/07/18 1509: General Information and HPI Consulting Request Date of Consult: 02/07/18 Requested By: Dr Ajit Evans Reason for Consult: Acute Hypoxic Respiratory Failure Source of Information: patient, family, W10 Exam Limitations: no limitations History of Present Illness: 67 yo F with PMH of hypertension, emphysema, pancreatitis, anxiety, depression, multiple myeloma on chemotherapy, multiple compression fractions, chronic previous alcohol abuse was brought to the ED after a rapid response was called while the patient was at the cancer centre earlier today. Patient states she was at the cancer center awaiting a 2 units of blood transfusion that were ordered by Dr Ferro. She felt short of breath and her oxygen saturations were found to be in 70s. She did not receive her scheduled blood transfusions. Rapid response was called and the patient was brought to the ED for further evaluation. In the ED she was started on BiPAP to maintain her oxygen saturations. Her blood gas in the ED showed 7.30/47/97/22 Per , the patient had been in her usual state of health till this morning. She had been doing her ADLs without any difficulties or exertional shortness of breath. He dropped her at the Infusion Center earlier this morning and got a call half an hour after reaching home regarding his 's condition. Of note, the patient was here last week after a fall. She had a CT head which showed small acute subdural hematoma and an elevated Ca level. She was transferred to [place] at the time where she was treated with Platelets and short course of Decadron. A PICC line was also inserted at the time which is visualized in place on her CXR today. Allergies/Medications Allergies: Coded Allergies: morphine (ITCHING 01/23/18) Home Med List: Acyclovir 400 MG TABLET 1 TAB PO BID Prophylaxis (Reported) Albuterol Sulfate 2.5 MG/3 ML (0.083 %) VIAL.NEB 3 ML INH Q4P PRN SHORTNESS OF BREATH Alprazolam 1 MG TABLET 1 TAB PO BID Anxiety (Reported) Amlodipine Besylate 10 MG TABLET 1 TAB PO DAILY HIGH BLOOD PRESSURE (Reported ) Brexpiprazole (Rexulti) 1 MG TABLET 1 TAB PO DAILY MENTAL HEALTH (Reported) Budesonide/Formoterol Fumarate (Symbicort 160-4.5 Mcg Inhaler) 10.2 GM HFA.AER.AD 2 PUF INH BID RESPIRATORY (Reported) Calcium Carbonate/Vitamin D3 (Caltrate 600 + D Tablet) 600 MG-800 TABLET 1 TAB PO DAILY VITAMIN SUPPORT (Reported) Cholecalciferol (Vitamin D3) (Vitamin D) 2,000 UNIT CAPSULE 1 CAP PO DAILY SUPPLEMENT (Reported) Cyanocobalamin (Vitamin B-12) 1,000 MCG TABLET 1 TAB PO DAILY SUPPLEMENT ( Reported) Duloxetine HCl 20 MG CAPSULE. 1 CAP PO DAILY DEPRESSION (Reported) Folic Acid 1 MG TABLET 1 TAB PO DAILY VITAMIN SUPPORT (Reported) Gabapentin 300 MG CAPSULE 1 CAP PO QAM TREMORS (Reported) Gabapentin 600 MG TABLET 1 TAB PO QPM Neuropathy (Reported) Lipase/Protease/Amylase (Zenpep Dr 5,000 Units Capsule) 5K-17K-27K CAPSULE.DR 1 CAP PO TIDAC PANCREAS (Reported) Omeprazole 40 MG CAPSULE.DR 1 CAP PO DAILY GI (Reported) Oxycodone HCl 5 MG TABLET 1 TAB PO Q4-6 PRN PRN Pain (Reported) Oxycodone HCl (Oxycontin) 40 MG TAB.ER.12H 1 TAB PO BID PAIN (Reported) Potassium Chloride 10 MEQ TAB.ER.PRT 1 TAB PO DAILY SUPPLEMENT (Reported) Sennosides/Docusate Sodium (Senna S Tablet) 8.6 MG-50 MG TABLET 1 TAB PO QPM Constipation (Reported) Sertraline HCl (Zoloft) 100 MG TABLET 1 TAB PO BID Mental health (Reported) Review of Systems Review of Systems Constitutional: Denies: chills, fever. EENTM: Reports: no symptoms. Cardiovascular: Denies: chest pain, palpitations. Respiratory: Reports: short of breath. GI: Reports: constipation. Denies: abdominal pain. Genitourinary: Reports: no symptoms. Musculoskeletal: Reports: no symptoms. Skin: Reports: no symptoms. Neurological/Psychological: Denies: headache. 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 Home Services at Home: None Primary Language: Slovenian Smoking Status: Former Smoker Living Will? no Functional Ability ADLs Independent: dressing, eating, toileting, bathing. Ambulation: independent IADLs Independent: shopping, housework, finances, food prep, telephone, transportation , medication admin. Exam & Diagnostic Data Last 24 Hrs of Vital Signs/I&O Vital Signs Date Time Temp Pulse Resp B/P B/P Pulse O2 O2 Flow FiO2 Mean Ox Delivery Rate 02/07 1419 BIPAP 65% 02/07 1402 98 95 02/07 1400 97 BIPAP 65% 02/07 1400 98.3 98 24 100/0 98 BIPAP 65% 02/07 1334 97.2 94 26 125/66 BIPAP 80% 02/07 1224 84 20 95/63 95 BIPAP 02/07 1146 84 24 92/62 95 BIPAP 02/07 1145 87 95 02/07 1048 94 24 89/58 97 BIPAP 30% 02/07 1013 70 Non ReBreather 02/07 1006 98.5 110 24 113/69 88 BIPAP 02/07 1000 87 BIPAP 100% 02/07 0945 112 87 Intake & Output 02/07 1600 02/07 0800 02/07 0000 Intake Total Output Total Balance Patient 133 lb Weight Weight Bed scale Measurement Method Physical Exam General Appearance: alert, awake, anxious, moderate distress Head: atraumatic, normal appearance Eyes: Bilateral: normal appearance. Respiratory: chest non-tender, decreased breath sounds, crackles, wheezing Cardiovascular: regular rate/rhythm, tachycardia Gastrointestinal: soft, non-tender Extremities: no edema Last 48 Hrs of Labs/Guzman: Laboratory Tests 02/07/18 1040: pH 7.30 *L, pCO2 47 H, pO2 97, HCO3 22, ABG O2 Sat (Measured) 95.0 L, Carboxyhemoglobin 1.1 L, O2 Concentration % 100, Respiration Rate 24, O2 Delivery Method VISION, Vent Mode ST, Expiratory Pressure 6, Inspiratory Pressure 24, Phlebotomy Draw Site LEFT RADIAL 02/07/18 0959: Anion Gap 14, Estimated GFR > 60, BUN/Creatinine Ratio 15.0, Glucose 101 H, Calcium 9.3, Magnesium 1.9, Total Bilirubin 0.5, AST 32, ALT 26, Alkaline Phosphatase 98, Troponin I < 0.01, Pgw-L-Kcbjxulzkoz Pept 570 H, Total Protein 8.9 H, Albumin 4.1, Globulin 4.8 H, Albumin/Globulin Ratio 0.9 L, Lipase < 10 L, CBC w Diff NO MAN DIFF REQ, RBC 2.54 L, MCV 98.5, MCH 35.0 H, MCHC 35.6, RDW 15.8 H, MPV 7.5, Gran % 75.7 H, Lymphocytes % 11.0 L, Monocytes % 7.4, Eosinophils % 3.1, Basophils % 2.8 H, Absolute Granulocytes 3.3, Absolute Lymphocytes 0.5 L, Absolute Monocytes 0.3, Absolute Eosinophils 0.1, Absolute Basophils 0.1 Assessment/Plan CRCU Impression/Plan: 67 yo F with PMH of hypertension, emphysema, pancreatitis, anxiety, depression, multiple myeloma on chemotherapy, multiple compression fractions, chronic previous alcohol abuse was brought to the ED after a rapid response was called while the patient was at the cancer centre earlier today. In the ED she received 1g Ceftriaxone, IV lasix 40mg, IV Solu-Medrol 125mg and nebulizer treatments. Assessment: 1. Acute Hypoxic Respiratory Failure likely secondary to bronchospasm 2. Hyperkalemia 3. History of Multiple Myeloma on weekly Chemotherapy 4. History of Chronic Back Pain 5. PICC line 6. History of Subdural Hematoma Plan: * Continue monitoring in the ICU. * Continue supplemental oxygen to maintain target sats >92%. Currently on BiPAP and 65% oxygen. * TRC/nebs as needed. * Start IV Azithromycin 500mg for 3-5 days. * Start IV SoluMedrol 40mg q6 from tomorrow * Switch to IV Protonix for now. * Will repeat ABG if needed. For now will monitor her. * Repeat BEP later today in evening for hyperkalemia. If her potassium is still high will consider giving kayexalate. * Would obtain blood cultures x 2 given her history of PICC line. * Urine legionella and pneumoccoal antigen. * LE doppler to r/o DVT * Echocardiogram to assess for RV strain. * Patient will not be a candidate for AC given recent SDH * Senna/Miralax for constipation prn * Diet: Regular. NPO for now until respiratory functions improves and she can tolerate oral intake. * DVT Prophylaxis: SC Lovenox * Code Status: Full Code Consult Acknowledgment - Thank you for your consult request. Toan Ramachandran MD 02/07/18 1526: Assessment/Plan CRCU Other Findings/Comments: Toan Gama M.D. have examined this patient, reviewed available EMR data, personally reviewed images, discussed with resident/PA/TRANSFORMER ASSEMBLER, discussed management plan with housestaff and nursing staff, discussed managment plan all of healthcare providers, discussed management plan with patient and/or family, agreed with resident/PA/TRANSFORMER ASSEMBLER. The past history and parts of the chart have been autopopulated. Impression 67 year old woman * Acute hypoxemic and hypercarbic respiratory failure in the setting of likely bronchospasm, and recent decadron cessation Plan Respiratory/ID -pt had a recent subdural hematoma, requiring platelets and [facility] admission, where she briefly received steroids and a PICC line -d-dimer recently negative, low suspicion for PE -would check ECHO/LE dopplers/d-dimer -will alert Dr. Hansen regarding consideration of port placement and removal of picc line during this admission -D/C BiPAP for now, quick improvement indicates bronchospasm -BiPAP prn for now -switch to high flow -continue antibiotics -check legionella/strep antigens -sputum cx CVS -monitor hemodynamics Heme -Anemia/MM, would alert Dr. Ferro that patient was admitted on a non-urgent basis Metabolic -monitor creatinine, electrolytes, ins/outs Alimentary -if does not require BiPAP can add diet Neuro -no acute issues DVT prophylaxis at all times TTS 50min Consult Acknowledgment - Thank you for your consult request.
[2018-02-07 16:00] VITALS: BP 98/0
[2018-02-07 18:57] LABS: PT 12.9 SEC (9.4-12.5); PTT 29 SEC (25-37)
--- NOTE | 2018-02-07 19:56 | ULTRASOUND REPORT ---
EXAMINATION: US TRIPLEX OF LOWER EXTREMITIES, BILATERAL CLINICAL INFORMATION: Hypoxia. COMPARISON: None TECHNIQUE: Color-flow triplex imaging with spectral analysis and compression Doppler were performed on the lower extremities. FINDINGS: Respiratory variation, normal compression and augmented flow are noted throughout the lower extremities. The visualized common femoral vein, superficial femoral vein, profunda femoral vein, popliteal vein and midcalf peroneal and posterior tibial venous segments show no evidence of deep venous thrombosis. There is no Chinchilla's cyst. IMPRESSION: No evidence of deep venous thrombosis involving the bilateral lower extremities.
[2018-02-07 20:00] VITALS: BP 104/68
[2018-02-07 22:00] VITALS: BP 97/52
[2018-02-07 23:41] VITALS: BP 110/78
[2018-02-08] VITALS (8 sets, daily range): BP systolic 95–136; BP diastolic 69–84
[2018-02-08 05:35] LABS: ABSOLUTE BASOPHIL COUNT 0 /CUMM (0.0-0.2); ABSOLUTE EOSINOPHIL COUNT 0 /CUMM (0.0-0.7); ABSOLUTE GRANULOCYTE CT 5.5 /CUMM (1.4-6.5); ABSOLUTE LYMPH COUNT 0.3 /CUMM (1.2-3.4); ABSOLUTE MONOCYTE COUNT 0.2 /CUMM (0.10-0.60); BASOPHIL % 0 % (0.0-2.0); EOSINOPHIL % 0 % (0-5); GRANULOCYTE % 92.2 % (42.2-75.2); HEMATOCRIT 20.8 % (37-47); MEAN CORPUSCULAR HGB 34.8 PG (27.0-31.0); MEAN CORPUSCULAR HGB CONC 34.5 G/DL (33.0-37.0); MEAN CORPUSCULAR VOLUME 100.7 FL (81.0-99.0); MEAN PLATELET VOLUME 7.9 FL (7.4-10.4); PLATELET COUNT 152 /CUMM (130-400); RBC DISTRIBUTION WIDTH 16.3 % (11.5-14.5); RED BLOOD CELL CT 2.06 /CUMM (4.20-5.40)
--- NOTE | 2018-02-08 08:12 | PN- Resident CRCU ---
Vaishali NORRIS,Adalid 02/08/18 0811: Subjective HPI/CRCU Issues: Acute hypoxic respiratory failure Patient seen and examined. Reports feeling much better. States she has had similar episodes in the past where she had to be brought in to the ICU. 24 Hour Events: No acute events overnight. Continues to be on high flow oxygen. Had a drop in H& H and was started on a 1 unit of pRBC. Objective Vital Signs & I&O Last 8 Hrs of Vitals and I&O: . Exam General Appearance: well developed/nourished, alert, awake, mild distress Head: atraumatic, normal appearance Respiratory: decreased breath sounds, rhonchi Cardiovascular: regular rate/rhythm Gastrointestinal: soft, non-tender Extremities: no edema Cranial Nerves: normal hearing, normal speech Skin: intact, normal color, warm/dry Skin Temp/Moisture Exam: Warm/Dry Sepsis Skin Exam (color): Normal for Ethnicity Current Medications: Current Medications Sig/Greg Start time Last Medication Dose Route Stop Time Status Admin Acyclovir 400 MG BID 02/07 2100 AC 02/08 PO 02/08 2059 0812 Albuterol Sulfate 3 ML BID 02/07 2100 AC 02/08 INH 0906 Albuterol Sulfate 3 ML Q4P PRN 02/07 1345 DC 02/07 INH 1411 Alprazolam 1 MG BID 02/07 2100 AC 02/08 PO 02/149 0821 Amlodipine Besylate 10 MG DAILY 02/08 900 AC 02/08 PO 0813 Azithromycin 500 MG DAILY 02/07 1358 AC 02/08 Sodium Chloride 250 ML IV 0814 Brexpiprazole 1 MG DAILY 02/08 900 AC 02/08 PO 0812 Budesonide/ 2 PUF BID 02/07 2100 AC 02/08 Formoterol Fumarate INH 0821 Ceftriaxone Sodium 0 .STK-MED ONE 02/07 1248 DC .ROUTE Ceftriaxone Sodium 1,000 MG ONCE ONE 02/07 1215 DC 02/07 IV 02/07 1216 1253 Cholecalciferol 2,000 IU DAILY 02/08 900 AC 02/08 PO 0812 Cyanocobalamin 1,000 MCG DAILY 02/08 09 AC 02/08 PO 0940 Duloxetine HCl 20 MG DAILY 02/08 900 AC 02/08 PO 0813 Enoxaparin Sodium 40 MG DAILY 02/08 900 AC 02/08 SC 0812 Folic Acid 1 MG DAILY 02/08 0900 AC 02/08 PO 0940 Furosemide 40 MG ONCE ONE 02/07 1045 DC 02/07 IV 02/07 1046 1044 Furosemide 0 .STK-MED ONE 02/07 1042 DC IV Gabapentin 300 MG QAM 02/08 0900 AC 02/08 PO 0813 Gabapentin 600 MG QPM 02/07 2100 AC 02/07 PO 2105 Lipase/Protease/ 1 CAP TIDAC 02/07 1700 AC 02/08 Amylase PO 0812 Methylprednisolone 40 MG Q12 02/08 2100 AC IV Methylprednisolone 40 MG Q6 02/08 0600 DC 02/08 IV 0556 Oxycodone HCl 40 MG BID 02/07 2100 AC 02/08 PO 0821 Oxycodone HCl 5 MG Q4-6 PRN PRN 02/07 1445 AC PO Pantoprazole Sodium 40 MG DAILY 02/08 0900 AC 02/08 IV 0812 Polyethylene Glycol 17 GM DAILY PRN 02/07 1500 AC 02/08 PO 0812 Senna 187 MG AT BEDTIME PRN 02/07 1500 AC 02/08 PO 0812 Sertraline HCl 100 MG BID 02/08 0900 AC 02/08 PO 0812 Impression/Plan Impression/Problem List Impression: 67 yo F with PMH of hypertension, emphysema, pancreatitis, anxiety, depression, multiple myeloma on chemotherapy, multiple compression fractions, chronic previous alcohol abuse was brought to the ED after a rapid response was called while the patient was at the cancer centre earlier today. In the ED she received 1g Ceftriaxone, IV lasix 40mg, IV Solu-Medrol 125mg and nebulizer treatments. Assessment: 1. Acute Hypoxic Respiratory Failure likely secondary to bronchospasm 2. Hyperkalemia - resolved 3. History of Multiple Myeloma on weekly Chemotherapy 4. History of Chronic Back Pain 5. PICC line 6. History of Subdural Hematoma Plan: * Continue supplemental oxygen to maintain target sats >92%. Currently on high flow at 40%. Will taper as tolerated. Once off high flow can likely be downgraded. * TRC/nebs as needed. * Continue IV Azithromycin 500mg for 3-5 days. * Reduce IV SoluMedrol to 40mg q12. * Will repeat ABG if needed. For now will monitor her. * Would obtain blood cultures x 2 - negative so far. * Urine legionella and pneumoccoal antigen - negative. * LE doppler r/o DVT * Echocardiogram to assess for RV strain - pending. * Patient will not be a candidate for AC given recent SDH * Senna/Miralax for constipation prn * Diet: Regular. * DVT Prophylaxis: SC Lovenox * Code Status: Full Code Problem List: 1. Shortness of breath Pain Ratin Tomorrow's Labs & Rationales: CBC, BEP Plan DVT/Prophylaxis: mechanical, pharmacological Toan Ramachandran MD 02/08/18 0847: Attending MD Review Statement Attending Sign Off Attending Cosign Statement: I have: examined this patient, reviewed avalbl EMR data, personally reviewd images, discussd w/resident/PA/UTILITY BILL COLLECTOR, discussed mgmt plan w/marcos, discussed mgmt plan w/CM, discussed mgmt plan w/pt, agreed w/resident/PA/UTILITY BILL COLLECTOR, amended to note. Other Findings: Toan Gama M.D. have examined this patient, reviewed available EMR data, personally reviewed images, discussed with resident/PA/UTILITY BILL COLLECTOR, discussed management plan with housestaff and nursing staff, discussed managment plan all of healthcare providers, discussed management plan with patient and/or family, agreed with resident/PA/UTILITY BILL COLLECTOR. The past history and parts of the chart have been autopopulated. Impression 67 year old woman * Acute hypoxemic and hypercarbic respiratory failure in the setting of likely bronchospasm, and recent decadron cessation Plan Respiratory/ID -pt had a recent subdural hematoma, requiring platelets and [place] admission, where she briefly received steroids and a PICC line -negative LE dopplers and negative d-dimer with a low suspicion for PE, effectively reduces the likelihood probability of a VTE -would check ECHO/LE dopplers/d-dimer -will alert Dr. Hansen regarding consideration of port placement and removal of picc line during this admission -off BiPAP for now, quick improvement indicates bronchospasm -reduce fio2 as tolerated, high flow -continue antibiotics -f/u all cultures CVS -monitor hemodynamics Heme -Anemia/MM, would alert Dr. Ferro that patient was admitted on a non-urgent basis Metabolic -monitor creatinine, electrolytes, ins/outs Alimentary -diet Neuro -no acute issues DVT prophylaxis at all times TTS 35 min
--- NOTE | 2018-02-08 15:31 | CT SCAN REPORT ---
EXAMINATION: CT HEAD WITHOUT CONTRAST CLINICAL INFORMATION: Confusion. History of subdural hematoma one week ago. Presumptive diagnosis enlarging subdural hematoma. COMPARISON: 01/23/2018 TECHNIQUE: Contiguous axial imaging was performed from the skull base to vertex without intravenous administration of contrast. DLP: 698 mGy-cm FINDINGS: There is no evidence of acute intracranial hemorrhage or territorial infarction. The previously seen subdural hematoma over the right posterior parietal convexity has resolved since the prior study. No abnormal mass effect or midline shift is seen. Wheeler to white matter differentiation is well preserved. No extra-axial fluid collections are identified. The ventricles are normal in size. There is no abnormal attenuation within the brain parenchyma. Calcific atherosclerosis is present within the cavernous and supraclinoid segments of the internal carotid arteries. Patchy osteolytic foci are present throughout the calvarium and, to a lesser extent, the skull base. This appearance is unchanged from prior osteolysis is again seen at the temporomandibular joints, left greater than right. Hyperostosis frontalis interna is again noted. The mastoid air cells and visualized portions of the paranasal sinuses are well aerated. IMPRESSION: No acute intracranial pathology. Previously seen subdural hematoma has resolved. No new foci of intracranial hemorrhage identified. Unchanged patchy osteolytic foci throughout the calvarium and skull base, consistent with known multiple myeloma.
--- NOTE | 2018-02-08 15:33 | PN- Att Addend ---
Attending Addendum Attending Brief Note Covering attending note: Patient feeling and looking much better, much brighter still in some high flow oxygen, not short of breath at rest. Transfusion in progress. Vital signs are stable. No major changes on physical White count is normal potassium 5.1. Will monitor her H&H, continue respiratory therapy Blas Keith MD will be back tomorrow morning to continue care of the patient. 24 TOTALS 02/08 0000 02/07 0000 Intake Total 590 Output Total 500 Balance 90 Intake, IV 250 Intake, Oral 340 Number 0 Bowel Movements Output, Urine 500 Patient 133 lb Weight Weight Bed scale Measurement Method Current Medications Sig/Greg Start time Last Medication Dose Route Stop Time Status Admin Acyclovir 400 MG BID 02/07 2100 AC 02/08 PO 02/08 2059 08 Albuterol Sulfate 3 ML BID 02/07 2100 AC 02/08 INH 0906 Alprazolam 1 MG BID 02/07 2100 AC 02/08 PO 02/14 2059 0821 Amlodipine Besylate 10 MG DAILY 02/08 09 AC 02/08 PO 0813 Azithromycin 500 MG DAILY 02/07 1358 AC 02/08 Sodium Chloride 250 ML IV 0814 Brexpiprazole 1 MG DAILY 02/08 0900 AC 02/08 PO 0812 Budesonide/ 2 PUF BID 02/07 2100 AC 02/08 Formoterol Fumarate INH 0821 Cholecalciferol 2,000 IU DAILY 02/08 09 AC 02/08 PO 0812 Cyanocobalamin 1,000 MCG DAILY 02/08 0900 AC 02/08 PO 0940 Duloxetine HCl 20 MG DAILY 02/08 09 AC 02/08 PO 0813 Enoxaparin Sodium 40 MG DAILY 02/08 09 AC 02/08 SC 0812 Folic Acid 1 MG DAILY 02/08 0900 AC 02/08 PO 0940 Gabapentin 300 MG QAM 02/08 0900 AC 02/08 PO 0813 Gabapentin 600 MG QPM 02/07 2100 AC 02/07 PO 2105 Lipase/Protease/ 1 CAP TIDAC 02/07 1700 AC 02/08 Amylase PO 1134 Methylprednisolone 40 MG Q12 02/08 2100 AC IV Methylprednisolone 40 MG Q6 02/08 0600 DC 02/08 IV 0556 Omeprazole 40 MG DAILY AC 02/09 0700 AC PO Oxycodone HCl 40 MG BID 02/07 2100 AC 02/08 PO 0821 Oxycodone HCl 5 MG Q4-6 PRN PRN 02/07 1445 AC PO Pantoprazole Sodium 40 MG DAILY 02/08 0900 DC 02/08 IV 0812 Polyethylene Glycol 17 GM DAILY PRN 02/07 1500 AC 02/08 PO 0812 Senna 187 MG AT BEDTIME PRN 02/07 1500 AC 02/08 PO 0812 Sertraline HCl 100 MG BID 02/08 0900 AC 02/08 PO 08 Laboratory Tests 02/08/18 0402: Anion Gap 10, Estimated GFR > 60, Glucose 116 H, Calcium 8.8, Phosphorus 3.4, Magnesium 2.0, Total Bilirubin 0.2, AST 13 L, ALT 18, Albumin 3.3 L, CBC w Diff MAN DIFF ORDERED, RBC 2.06 L, MCV 100.7 H, MCH 34.8 H, MCHC 34.5, RDW 16.3 H, MPV 7.9, Gran % 92.2 H, Lymphocytes % 4.7 L, Monocytes % 3.1, Eosinophils % 0, Basophils % 0, Absolute Granulocytes 5.5, Segmented Neutrophils 90 H, Band Neutrophils 3, Absolute Lymphocytes 0.3 L, Lymphocytes 3 L, Monocytes 3, Absolute Monocytes 0.2, Eosinophils 1, Absolute Eosinophils 0, Absolute Basophils 0, Platelet Estimate ADEQUATE, Polychromasia 1+, Anisocytosis 1+, Macrocytic Cells 1+, Ovalocytes FEW, Fld Total RBCs Counted 100 02/07/18 1810: D-Dimer High Sensitivty < 200 02/07/18 1800: PT 12.9 H, INR 1.18, APTT 29 02/07/18 1620: Anion Gap 14, Estimated GFR > 60, BUN/Creatinine Ratio 16.7 02/07/18 1040: pH 7.30 *L, pCO2 47 H, pO2 97, HCO3 22, ABG O2 Sat (Measured) 95.0 L, Carboxyhemoglobin 1.1 L, O2 Concentration % 100, Respiration Rate 24, O2 Delivery Method VISION, Vent Mode ST, Expiratory Pressure 6, Inspiratory Pressure 24, Phlebotomy Draw Site LEFT RADIAL 02/07/18 0959: Anion Gap 14, Estimated GFR > 60, BUN/Creatinine Ratio 15.0, Glucose 101 H, Calcium 9.3, Magnesium 1.9, Total Bilirubin 0.5, AST 32, ALT 26, Alkaline Phosphatase 98, Troponin I < 0.01, Cia-G-Teityxerlyr Pept 570 H, Total Protein 8.9 H, Albumin 4.1, Globulin 4.8 H, Albumin/Globulin Ratio 0.9 L, Lipase < 10 L, CBC w Diff NO MAN DIFF REQ, RBC 2.54 L, MCV 98.5, MCH 35.0 H, MCHC 35.6, RDW 15.8 H, MPV 7.5, Gran % 75.7 H, Lymphocytes % 11.0 L, Monocytes % 7.4, Eosinophils % 3.1, Basophils % 2.8 H, Absolute Granulocytes 3.3, Absolute Lymphocytes 0.5 L, Absolute Monocytes 0.3, Absolute Eosinophils 0.1, Absolute Basophils 0.1 Microbiology 02/07 1800 URINE ROUT: Legionella Antigen - COMP 02/07 1800 URINE ROUT: Streptococcus pneumoniae Antigen (M - COMP Microbiology Date/Time Procedure - Status Source Growth 02/07 1800 Legionella Antigen - COMP URINE ROUT 02/07 1800 Streptococcus pneumoniae Antigen (M - COMP URINE ROUT 02/07 1630 Blood Culture - RES BLOOD 02/07 1620 Blood Culture - RES BLOOD Vital Signs Date Time Temp Pulse Resp B/P B/P Pulse O2 O2 Flow FiO2 Mean Ox Delivery Rate 02/08 1027 97 Nasal 40% Cannula 02/08 0912 97 Nasal 50% Cannula 02/08 0800 99 Nasal 50% Cannula 02/08 0800 97.5 88 22 115/73 99 Nasal 50% Cannula 02/08 0600 96.7 90 14 95/69 02/08 0400 96.3 78 17 127/73 / 0400 100 Nasal 50% Cannula 02/08 0314 97 Nasal 50% Cannula 02/08 0000 98.2 90 20 110/78 07/04 0000 98 Nasal 50% Cannula 02/07 2341 98.2 90 20 110/78 98 Nasal 50% Cannula 02/07 2200 98.2 100 20 97/52 02/07 2107 96 Nasal 50% Cannula 02/08 2000 98.0 95 19 104/68 02/08 2000 97 Nasal 50% Cannula 02/07 1658 87 100 02/07 1600 98.2 83 24 98/0 99 BIPAP 60% 02/07 1600 97 Nasal 50% Cannula
[2018-02-09] VITALS: BP 122/82
[2018-02-09 04:00] VITALS: BP 122/82
[2018-02-09 06:40] VITALS: BP 138/78
--- NOTE | 2018-02-09 07:52 | PN- Housestaff ---
PonchoChantal 02/09/18 0751: Subjective Follow-up For: Acute hypoxic respiratory failure Subjective: No overnight event. Patient was concerned about whether she will get the Port-A- Catheter placement today by Dr. Barcenas. Denied specific complaint and not in acute distress. Review of Systems Constitutional: Reports: see HPI. Objective Last 24 Hrs of Vital Signs/I&O Vital Signs Date Time Temp Pulse Resp B/P B/P Pulse O2 O2 Flow FiO2 Mean Ox Delivery Rate 02/09 1426 97.8 94 20 130/87 96 Room Air 02/09 1000 98.1 68 18 128/70 02/09 0942 68 128/84 / 0800 98 Nasal 2.0L Cannula 02/09 0640 97.9 72 20 138/78 97 Nasal 2.0L Cannula 02/09 0400 98.3 100 18 122/82 07/05 0000 Nasal 2.0L Cannula / 0000 98.3 100 18 122/82 / 2236 98.3 100 20 122/82 100 Nasal Cannula 02/08 2106 95 Nasal 2.0L Cannula 02/09 2000 98.2 102 20 136/84 07/04 1841 98.2 102 20 136/84 99 Intake & Output / 1600 07/05 0800 / 0000 Intake Total 850 240 360 Output Total 500 400 Balance 850 -260 -40 Intake, Oral 850 240 360 Number 1 2 1 Bowel Movements Output, Urine 500 400 Patient 66.224 kg Weight Physical Exam General Appearance: Alert, Oriented X3, Cooperative, No Acute Distress Cardiovascular: Regular Rate Lungs: Clear to Auscultation, Normal Air Movement Abdomen: Normal Bowel Sounds, Soft, No Tenderness Neurological: Normal Speech, Strength at 5/5 X4 Ext Extremities: No Cyanosis, No Edema, Normal Pulses Current Medications: Current Medications Sig/Greg Start time Last Medication Dose Route Stop Time Status Admin Acyclovir 400 MG BID 02/07 2100 DC 02/08 PO 02/08 Albuterol Sulfate 3 ML BID 02/07 2100 AC 02/09 INH 0958 Alprazolam 1 MG BID 02/07 2100 AC 02/09 PO 02/1440 Amlodipine Besylate 10 MG DAILY 02/08 900 AC 02/09 PO 0942 Azithromycin 250 MG DAILY 02/09 900 AC 02/09 PO 1037 Azithromycin 500 MG DAILY 02/07 1358 DC 02/08 Sodium Chloride 250 ML IV 0814 Brexpiprazole 1 MG DAILY 02/08 900 AC 02/09 PO 0942 Budesonide/ 2 PUF BID 02/07 2100 AC 02/09 Formoterol Fumarate INH 0941 Cholecalciferol 2,000 IU DAILY 02/08 900 AC 02/09 PO 0942 Cyanocobalamin 1,000 MCG DAILY 02/08 900 AC 02/09 PO 0942 Duloxetine HCl 20 MG DAILY 02/08 09 AC 02/09 PO 0941 Enoxaparin Sodium 40 MG DAILY 02/08 900 AC 02/09 SC 0941 Folic Acid 1 MG DAILY 02/08 09 AC 02/09 PO 0942 Gabapentin 300 MG QAM 02/08 09 AC 02/09 PO 0942 Gabapentin 600 MG QPM 02/07 2100 AC 02/08 PO 2030 Lipase/Protease/ 1 CAP TIDAC 02/07 1700 AC 02/09 Amylase PO 1146 Methylprednisolone 40 MG Q12 02/08 2100 AC 02/09 IV 0941 Omeprazole 40 MG DAILY AC 02/09 0700 AC 02/09 PO 0556 Oxycodone HCl 40 MG BID 02/07 2100 AC 02/09 PO 0940 Oxycodone HCl 5 MG Q4-6 PRN PRN 02/07 1445 AC PO Polyethylene Glycol 17 GM DAILY PRN 02/07 1500 AC 02/08 PO 0812 Senna 187 MG AT BEDTIME PRN 02/07 1500 AC 02/08 PO 0812 Sertraline HCl 100 MG BID 02/08 09 AC 02/09 PO 0941 Last 24 Hrs of Lab/Guzman Results Last 24 Hrs of Labs/Mics: Laboratory Tests 02/09/18 0600: Anion Gap 10, Estimated GFR > 60, BUN/Creatinine Ratio 16.7, CBC w Diff NO MAN DIFF REQ, RBC 2.81 L, MCV 96.3, MCH 33.5 H, MCHC 34.8, RDW 18.7 H, MPV 7.7, Gran % 90.7 H, Lymphocytes % 6.7 L, Monocytes % 2.6, Eosinophils % 0, Basophils % 0, Absolute Granulocytes 3.2, Absolute Lymphocytes 0.2 L, Absolute Monocytes 0.1, Absolute Eosinophils 0, Absolute Basophils 0 Assessment/Plan Assessment: 67 yo F with PMH of hypertension, emphysema, pancreatitis, anxiety, depression, multiple myeloma on chemotherapy, multiple compression fractions, chronic previous alcohol abuse was brought to the ED after a rapid response was called while the patient was at the cancer centre earlier today. In the ED she received 1g Ceftriaxone, IV lasix 40mg, IV Solu-Medrol 125mg and nebulizer treatments. Assessment: 1. Acute Hypoxic Respiratory Failure likely secondary to bronchospasm, resolving 2. Hyperkalemia - resolved 3. History of Multiple Myeloma on weekly Chemotherapy 4. History of Chronic Back Pain 5. PICC line for IV access 6. History of Subdural Hematoma, resolved on Head CT Plan: * Continue supplemental oxygen to maintain target sats >92%. Currently on 2LNC. * TRC/nebs as needed. * Switch to PO azithromycin for a total of 5 day course, currently day 3 * Reduce IV SoluMedrol to 40mg q12, will taper to oral T+1. * Will repeat ABG if needed. For now will monitor her. * blood cultures x 2 - negative so far. * Urine legionella and pneumoccoal antigen - negative. * LE doppler r/oed DVT * Echocardiogram to assess for RV strain - pending. * Patient will not be a candidate for AC given recent SDH * Senna/Miralax for constipation prn * Diet: Regular. * DVT Prophylaxis: SC Lovenox * Code Status: Full Code Problem List: 1. COPD with acute exacerbation 2. Right lower lobe pneumonia Pain Ratin Pain Location: N/A Pain Goal: Remain pain free Pain Plan: see AP Tomorrow's Labs & Rationales: MALDONADO Keith MD,[facility] 02/09/18 1311: Attending MD Review Statement Attending Statement Attending MD Statement: examined this patient, discuss w/resident/PA/CASH REGISTER REPAIRER, agreed w/resident/PA/CASH REGISTER REPAIRER, discussed with family, reviewed EMR data (avail), discussed with nursing, discussed with case mgmt, reviewed images, amended to note Attending Assessment/Plan: Pt with multiple issues now with 67 yo F with PMH of hypertension, emphysema, pancreatitis, anxiety, depression, multiple myeloma on chemotherapy, multiple compression fractions, chronic previous alcohol abuse was brought to the ED after a rapid response was called while the patient was at the cancer centre In the ED she received 1g Ceftriaxone, IV lasix 40mg, IV Solu-Medrol 125mg and nebulizer treatments. Assessment: 1. Acute Hypoxic Respiratory Failure likely secondary to bronchospasm, resolving 2. Hyperkalemia - resolved 3. History of Multiple Myeloma on weekly Chemotherapy 4. History of Chronic Back Pain 5. PICC line for IV access needs portacath 6. History of Subdural Hematoma, resolved on Head CT 7. Recent hypercalcemia now better REc Cont current rx Ask Dr Barcenas to see if she can have a portacath in am Po abx change to po prednisone tape Check echo results and le dopplers Cont agg bowel regimen TO be dcd in am if stable
[2018-02-09 08:24] LABS: ABSOLUTE BASOPHIL COUNT 0 /CUMM (0.0-0.2); ABSOLUTE EOSINOPHIL COUNT 0 /CUMM (0.0-0.7); ABSOLUTE GRANULOCYTE CT 3.2 /CUMM (1.4-6.5); ABSOLUTE LYMPH COUNT 0.2 /CUMM (1.2-3.4); ABSOLUTE MONOCYTE COUNT 0.1 /CUMM (0.10-0.60); BASOPHIL % 0 % (0.0-2.0); EOSINOPHIL % 0 % (0-5); WHITE BLOOD CELL COUNT 3.5 /CUMM (4.8-10.8)
[2018-02-09 08:37] LABS: MEAN CORPUSCULAR HGB 33.5 PG (27.0-31.0); MEAN CORPUSCULAR HGB CONC 34.8 G/DL (33.0-37.0); MEAN CORPUSCULAR VOLUME 96.3 FL (81.0-99.0); MEAN PLATELET VOLUME 7.7 FL (7.4-10.4); PLATELET COUNT 123 /CUMM (130-400); RBC DISTRIBUTION WIDTH 18.7 % (11.5-14.5)
[2018-02-09 08:38] LABS: RED BLOOD CELL CT 2.81 /CUMM (4.20-5.40)
[2018-02-09 08:39] LABS: HEMATOCRIT 27.1 % (37-47)
[2018-02-09 08:56] LABS: GRANULOCYTE % 90.7 % (42.2-75.2)
[2018-02-09 10:00] VITALS: BP 128/70
[2018-02-09] MEDS ORDERED: PREDNISONE10 M2 PO (13:48)
--- NOTE | 2018-02-09 13:51 | Patient Discharge Instructions ---
Discharge Instructions General Discharge Information Special Instructions: - Please follow up with Dr. Barcenas for Fcef-L-Usjiipfl placement as soon as possible. - Please follow up with your Oncologist Dr. Ferro for chemotherapy. - Please follow up with your primary care physician within 1-2 weeks of discharge. Inform your primary care physician of this admission to [facility]. - Continue your current medications per discharge instructions. - Please watch for these problems: Fever, Chills, Nausea, Vomiting, Shortness of Breath, Productive Cough, Chest Pain/Discomfort, Abdominal Pain, Active Bleeding or Bloody urine/stool. Diet Continue normal diet: Yes Activity Full Activity/No Limits: Yes Acute Coronary Syndrome Inclusion Criteria At DC or during hospital stay patient has or had the following: ACS DIAGNOSIS No Discharge Core Measures Meds if any: Prescribed or Continued at Discharge Meds if any: NOT Prescribed or Continued at Discharge Congestive Heart Failure Inclusion Criteria At DC or during hospital stay patient has or had the following: CHF DIAGNOSIS No Discharge Core Measures Meds if any: Prescribed or Continued at Discharge Meds if any: NOT Prescribed or Continued at Discharge Cerebrovascular accident Inclusion Criteria At DC or during hospital stay patient has or had the following: CVA/TIA Diagnosis No Discharge Core Measures Meds if any: Prescribed or Continued at Discharge Meds if any: NOT Prescribed or Continued at Discharge Venous thromboembolism Inclusion Criteria VTE Diagnosis No VTE Type NONE VTE Confirmed by (Test) NONE Discharge Core Measures - Per Current guidelines, there needs to be overlap - treatment for the first 5 days of Warfarin therapy. - If discharged on Warfarin prior to 5 days of - overlap therapy, the patient will need to be - assessed for post discharge needs including - *Post discharge parental anticoagulation - *Warfarin and/or parental anticoagulation education - *Follow up date to check INR post discharge At least 5 days overlap therapy as Inpatient No Meds if any: Prescribed or Continued at Discharge Note: Overlap Therapy is Warfarin and Anticoagulant Meds if any: NOT Prescribed or Continued at Discharge
[2018-02-09 14:26] VITALS: BP 130/87
[2018-02-09 22:14] VITALS: BP 124/82
[2018-02-10 06:20] VITALS: BP 134/86
[2018-02-10] MEDS ORDERED: PREDNISONE10 M2 PO ×3 (08:01→10:35)
--- NOTE | 2018-02-10 09:34 | PN- Pulmonary ---
Subjective HPI/Critical Care Issues: Relatively stable on room air Sleeping fatigued Objective Current Medications: Current Medications Sig/Greg Start time Last Medication Dose Route Stop Time Status Admin Albuterol Sulfate 3 ML BID 02/07 2100 AC 02/09 INH 1900 Alprazolam 1 MG BID 02/07 2100 AC 02/09 PO 02/14 Amlodipine Besylate 10 MG DAILY 02/08 900 AC 02/09 PO 0942 Azithromycin 250 MG DAILY 02/09 900 AC 02/09 PO 1037 Brexpiprazole 1 MG DAILY 02/08 900 AC 02/09 PO 0942 Budesonide/ 2 PUF BID 02/07 2100 AC 02/09 Formoterol Fumarate INH 2103 Cholecalciferol 2,000 IU DAILY 02/08 900 AC 02/09 PO 0942 Cyanocobalamin 1,000 MCG DAILY 02/08 900 AC 02/09 PO 0942 Duloxetine HCl 20 MG DAILY 02/08 900 AC 02/09 PO 0941 Enoxaparin Sodium 40 MG DAILY 02/08 900 AC 02/09 SC 0941 Folic Acid 1 MG DAILY 02/08 900 AC 02/09 PO 0942 Gabapentin 300 MG QAM 02/08 900 AC 02/09 PO 0942 Gabapentin 600 MG QPM 02/07 2100 AC 02/09 PO 2103 Lipase/Protease/ 1 CAP TIDAC 02/07 1700 AC 02/09 Amylase PO 1708 Methylprednisolone 40 MG Q12 02/08 2100 DC 02/09 IV 2105 Omeprazole 40 MG DAILY AC 02/09 07 AC 02/10 PO 0656 Oxycodone HCl 40 MG BID 02/07 2100 AC 02/09 PO 210 Oxycodone HCl 5 MG Q4-6 PRN PRN 02/07 1445 AC PO Polyethylene Glycol 17 GM DAILY PRN 02/07 1500 AC 02/08 PO 0812 Prednisone 60 MG DAILY 02/10 09 AC PO Senna 187 MG AT BEDTIME PRN 02/07 1500 AC 02/08 PO 0812 Sertraline HCl 100 MG BID 02/08 0900 AC 02/09 PO 210 Vital Signs & I&O Last 24 Hrs of Vitals and I&O: Vital Signs Date Time Temp Pulse Resp B/P B/P Pulse O2 O2 Flow FiO2 Mean Ox Delivery Rate 02/11 620 98.4 65 18 134/86 95 Room Air 02/10 0000 Room Air 02/09 2214 97.4 92 18 124/82 97 Room Air 02/09 1900 96 Room Air 02/09 1426 97.8 94 20 130/87 96 Room Air 02/09 1000 98.1 68 18 128/70 02/09 0942 68 128/84 Intake & Output 02/10 1600 07 0800 07 0000 Intake Total 360 400 Output Total Balance 360 400 Intake, Oral 360 400 Laboratory Tests 02/09 0600 Chemistry Sodium (137 - 145 mmol/L) 142 Potassium (3.5 - 5.1 mmol/L) 5.1 Chloride (98 - 107 mmol/L) 102 Carbon Dioxide (22 - 30 mmol/L) 30 Anion Gap (5 - 16) 10 BUN (7 - 17 mg/dL) 10 Creatinine (0.5 - 1.0 mg/dL) 0.6 Estimated GFR (>60 ml/min) > 60 BUN/Creatinine Ratio (7 - 25 %) 16.7 Hematology CBC w Diff NO MAN DIFF REQ WBC (4.8 - 10.8 /CUMM) 3.5 L RBC (4.20 - 5.40 /CUMM) 2.81 L Hgb (12.0 - 16.0 G/DL) 9.4 L Hct (37 - 47 %) 27.1 L MCV (81.0 - 99.0 FL) 96.3 MCH (27.0 - 31.0 PG) 33.5 H MCHC (33.0 - 37.0 G/DL) 34.8 RDW (11.5 - 14.5 %) 18.7 H Plt Count (130 - 400 /CUMM) 123 L MPV (7.4 - 10.4 FL) 7.7 Gran % (42.2 - 75.2 %) 90.7 H Lymphocytes % (20.5 - 51.1 %) 6.7 L Monocytes % (1.7 - 9.3 %) 2.6 Eosinophils % (0 - 5 %) 0 Basophils % (0.0 - 2.0 %) 0 Absolute Granulocytes (1.4 - 6.5 /CUMM) 3.2 Absolute Lymphocytes (1.2 - 3.4 /CUMM) 0.2 L Absolute Monocytes (0.10 - 0.60 /CUMM) 0.1 Absolute Eosinophils (0.0 - 0.7 /CUMM) 0 Absolute Basophils (0.0 - 0.2 /CUMM) 0 Microbiology Date/Time Procedure - Status Source Growth 02/07 1800 Legionella Antigen - COMP URINE ROUT 02/07 1800 Streptococcus pneumoniae Antigen (M - COMP URINE ROUT 02/07 1630 Blood Culture - RES BLOOD 02/07 1620 Blood Culture - RES BLOOD 02/07 1410 Surveillance Culture - COMP UPPER RESP 02/07 1410 Surveillance Culture - COMP GI Impression/Plan Impression/Plan Impression/Plan: 67 yo F with PMH of hypertension, emphysema, pancreatitis, anxiety, depression, multiple myeloma on chemotherapy, multiple compression fractions, chronic previous alcohol abuse was brought to the ED after a rapid response was called while the patient was at the cancer centre In the ED she received 1g Ceftriaxone, IV lasix 40mg, IV Solu-Medrol 125mg and nebulizer treatments. Assessment: 1. Resolved Acute Hypoxic Respiratory Failure likely secondary to bronchospasm 2. Hyperkalemia - resolved 3. History of Multiple Myeloma on weekly Chemotherapy 4. History of Chronic Back Pain 5. PICC line for IV access needs portacath 6. History of Subdural Hematoma, resolved on Head CT 7. Recent hypercalcemia now better REc Cont current rx, wean steroids off in 6 days then cont steroids per Dr. bui for her chemo Finish abx for total of seven days COnt pain meds and other meds Ask Dr Barcenas to see if she can have a portacath if not pt can be dcd and followed by Dr. Bui as out pt next week Cont agg bowel regimen TO be dcd
[2018-02-10 10:04] VITALS: BP 150/80
--- NOTE | 2018-02-10 10:10 | ECHOCARDIOGRAM REPORT ---
YESIKA HODGES Age: 67 : 1950 Gender: F Exam Date: 02/09/2018 20:26 Exam Location: [place] Ht (in): 65 Wt (lb): 132 BSA: 1.66 BP: 138 / 78 Ordering Physician: Adalid Tom MD Referring Physician: Adalid Tom MD Technologist: Candida Rodríguez [facility] Room Number: 236 Indications: PULMONARY HYPERTENSION Rhythm: Sinus Technical Quality: good FINDINGS Left Ventricle Normal left ventricular size with mild left ventricular hypertrophy. Normal systolic function with no obvious regional wall motion abnormalities. Diastolic filling pattern is consistent with impaired LV relaxation. The ejection fraction is visually estimated at 70%. Right Ventricle The right ventricle is normal in size and function. Right Atrium The right atrium is normal in size. Left Atrium The left atrium is normal in size. The interatrial septum is intact. Mitral Valve The mitral valve is normal in structure and function. There is trace mitral regurgitation. Aortic Valve Mildly thickended and sclerotic aortic valve without significant stenosis. There is no aortic regurgitation. Tricuspid Valve The tricuspid valve is normal in structure and function. There is trace tricuspid regurgitation. Pulmonary artery systolic pressure is normal. Pulmonic Valve Structurally normal pulmonic valve. There is no pulmonic regurgitation. Pericardium Normal pericardium with trace effusion. No pleural effusion. Great Vessels Normal aortic root dimension. The aortic arch and great vessels are well seen and are normal. CONCLUSIONS 1. Normal EF of 70% with impaired LV relaxation. 2. Mild left ventricular hypertrophy. 3. Trace mitral regurgitation. 4. Trace tricuspid regurgitation. 5. Mild aortic sclerosis. 6. Trace pericardial effusion Asa Victor M.D. (Electronically Signed) Final Date: 10 February 2018 10:09 MEASUREMENTS (Male / Female) Normal Values 2D ECHO LV Diastolic Diameter PLAX 4.1 cm 4.2 - 5.9 / 3.9 - 5.3 cm LV Systolic Diameter PLAX 2.2 cm 2.1 - 4.0 cm LV Fractional Shortening PLAX 46.3 % 25 - 46 % LV Ejection Fraction 2D Teich 78.2 % IVS Diastolic Thickness 1.2 cm LVPW Diastolic Thickness 1.2 cm LV Relative Wall Thickness 0.6 RV Internal Dim ED PLAX 2.3 cm 1.9 - 3.8 cm LVOT Diameter 1.8 cm Aortic Root Diameter 2.8 cm LA Systolic Diameter LX 3.5 cm 3.0 - 4.0 / 2.7 - 3.8 cm LA Volume 25.0 cm 18 - 58 / 22 - 52 cm Ascending Aorta Diameter 3.2 cm DOPPLER AV Peak Velocity 136.0 cm/s AV Peak Gradient 7.4 mmHg AV Mean Velocity 101.0 cm/s AV Mean Gradient 4.0 mmHg AV Velocity Time Integral 28.0 cm LVOT Peak Velocity 141.0 cm/s LVOT Peak Gradient 8.0 mmHg LVOT Mean Velocity 88.2 cm/s LVOT Mean Gradient 4.0 mmHg LVOT Velocity Time Integral 24.2 cm LVOT Stroke Volume 61.6 cm AV Area Cont Eq vti 2.2 cm AV Area Cont Eq pk 2.6 cm MV Peak Velocity 143.0 cm/s MV Peak Gradient 8.2 mmHg MV Mean Velocity 76.3 cm/s MV Mean Gradient 3.0 mmHg Mitral E Point Velocity 83.4 cm/s Mitral A Point Velocity 108.0 cm/s Mitral E to A Ratio 0.8 MV PHT Velocity 95.7 cm/s MV Deceleration Stafford 362.0 cm/s MV Pressure Half Time 79.3 ms MV Area PHT 2.8 cm MV Deceleration Time 132.0 ms TR Peak Velocity 118.0 cm/s TR Peak Gradient 5.6 mmHg Right Atrial Pressure 5.0 mmHg Pulmonary Artery Systolic Pressu 10.6 mmHg Right Ventricular Systolic Press 10.6 mmHg PV Peak Velocity 117.0 cm/s PV Peak Gradient 5.5 mmHg PV Mean Velocity 71.8 cm/s PV Mean Gradient 3.0 mmHg PV Velocity Time Integral 24.2 cm LV E' Lateral Velocity 7.2 cm/s Mitral E to LV E' Lateral Ratio 11.6 LV E' Septal Velocity 8.7 cm/s Mitral E to LV E' Septal Ratio 9.6
--- NOTE | 2018-02-10 23:11 | Cons- General Surgery ---
General Information and HPI Consulting Request Date of Consult: 02/09/18 Requested By: Ajit Evans MD History of Present Illness: cc needs Port-A-Cath History of present illness I saw her May 17 2015, to evaluate for possible gallbladder problem which we felt there was none. She is a 67 year-old nondiabetic nonsmoker with multiple medical problems including multiple myeloma recently had another facility had a PICC line placed now admitted for hypoxemia oncologist is changing her regimen and for this she needs a Port-A-Cath and she has very poor peripheral access, acute condition is improving she elected Port-A -Cath placed now denies any fevers shortness of breath or sputum, her last treatment was 3 weeks ago she gets monthly. Otherwise no changes bowel habits, weight or appetite. No chest surgery. The PFSH and ROS were reviewed and have not changed since the original constantly office on 05/17/2015, unless stated. No history of bleeding problems, heart disease or issues with anesthesia. Allergies/Medications Allergies: Coded Allergies: morphine (ITCHING 01/23/18) Home Med List: Acyclovir 400 MG TABLET 1 TAB PO BID Prophylaxis (Reported) Albuterol Sulfate 2.5 MG/3 ML (0.083 %) VIAL.NEB 3 ML INH Q4P PRN SHORTNESS OF BREATH Alprazolam 1 MG TABLET 1 TAB PO BID Anxiety (Reported) Amlodipine Besylate 10 MG TABLET 1 TAB PO DAILY HIGH BLOOD PRESSURE (Reported ) Brexpiprazole (Rexulti) 1 MG TABLET 1 TAB PO DAILY MENTAL HEALTH (Reported) Budesonide/Formoterol Fumarate (Symbicort 160-4.5 Mcg Inhaler) 10.2 GM HFA.AER.AD 2 PUF INH BID RESPIRATORY (Reported) Calcium Carbonate/Vitamin D3 (Caltrate 600 + D Tablet) 600 MG-800 TABLET 1 TAB PO DAILY VITAMIN SUPPORT (Reported) Cholecalciferol (Vitamin D3) (Vitamin D) 2,000 UNIT CAPSULE 1 CAP PO DAILY SUPPLEMENT (Reported) Cyanocobalamin (Vitamin B-12) 1,000 MCG TABLET 1 TAB PO DAILY SUPPLEMENT ( Reported) Duloxetine HCl 20 MG CAPSULE. 1 CAP PO DAILY DEPRESSION (Reported) Folic Acid 1 MG TABLET 1 TAB PO DAILY VITAMIN SUPPORT (Reported) Gabapentin 300 MG CAPSULE 1 CAP PO QAM TREMORS (Reported) Gabapentin 600 MG TABLET 1 TAB PO QPM Neuropathy (Reported) Lipase/Protease/Amylase (Zenpep 5,000 Units Capsule) [id number] CAPSULE. 1 CAP PO TIDAC PANCREAS (Reported) Omeprazole 40 MG CAPSULE.DR 1 CAP PO DAILY GI (Reported) Oxycodone HCl (Oxycontin) 40 MG TAB.ER.12H 1 TAB PO BID PAIN (Reported) Oxycodone HCl 5 MG TABLET 1 TAB PO Q4-6 PRN PRN Pain (Reported) Potassium Chloride 10 MEQ TAB.ER.PRT 1 TAB PO DAILY SUPPLEMENT (Reported) Prednisone 10 MG TABLET 1 TAB PO DAILY Steroid taper . Sennosides/Docusate Sodium (Senna S Tablet) 8.6 MG-50 MG TABLET 1 TAB PO QPM Constipation (Reported) Sertraline HCl (Zoloft) 100 MG TABLET 1 TAB PO BID Mental health (Reported) Current Medications: I reviewed Current Medications Sig/Greg Start time Last Medication Dose Route Stop Time Status Admin Albuterol Sulfate 3 ML BID 02/07 2100 DCD 02/10 INH 1058 Alprazolam 1 MG BID 02/07 2100 DCD 02/10 PO 02/14 2059 1005 Alteplase, 2 MG ONCE ONE 02/10 1000 DC 02/10 Recombinant IV 02/10 1001 1053 Amlodipine Besylate 10 MG DAILY 02/08 900 DCD 02/10 PO 1004 Azithromycin 250 MG DAILY 02/09 900 DCD 02/10 PO 1004 Brexpiprazole 1 MG DAILY 02/08 900 DCD 02/10 PO 1004 Budesonide/ 2 PUF BID 02/07 2100 DCD 02/10 Formoterol Fumarate INH 1003 Calcium Carbonate 500 MG ONCE ONE 02/10 1145 DCD PO 02/10 1146 Cholecalciferol 2,000 IU DAILY 02/08 900 DCD 02/10 PO 1004 Cyanocobalamin 1,000 MCG DAILY 02/08 900 DCD 02/10 PO 1003 Duloxetine HCl 20 MG DAILY 02/08 900 DCD 02/10 PO 1004 Enoxaparin Sodium 40 MG DAILY 02/08 900 DCD 02/09 SC 0941 Folic Acid 1 MG DAILY 02/08 900 DCD 02/10 PO 1004 Gabapentin 300 MG QAM 02/08 09 DCD 02/10 PO 1004 Gabapentin 600 MG QPM 02/07 2100 DCD 02/09 PO 2103 Lipase/Protease/ 1 CAP TIDAC 02/07 1700 DCD 02/10 Amylase PO 1004 Methylprednisolone 40 MG Q12 02/08 2100 DC 02/09 IV 2105 Omeprazole 40 MG DAILY AC 02/09 0700 DCD 02/10 PO 0656 Oxycodone HCl 40 MG BID 02/07 2100 DCD 02/10 PO 1005 Oxycodone HCl 5 MG Q4-6 PRN PRN 02/07 1445 DCD PO Polyethylene Glycol 17 GM DAILY PRN 02/07 1500 DCD 02/08 PO 0812 Prednisone 60 MG DAILY 02/10 0900 DCD 02/10 PO 1005 Senna 187 MG AT BEDTIME PRN 02/07 1500 DCD 02/08 PO 0812 Sertraline HCl 100 MG BID 02/08 0900 DCD 02/10 PO 1004 Past History Medical History Blood Transfusion Hx: Yes Neurological: NONE EENT: NONE Cardiovascular: hypertension Respiratory: COPD, emphysema Gastrointestinal: alcoholic hepatitis, pancreatitis, DIVERTICULITIS CHRONIC DIARRHEA INGUINAL HERNIA SBO Hepatic: ALCHOLIC HEPATITIS Renal: NONE Musculoskeletal: chronic back pain HERNIATED LUMBAR DISC POLYCYSTITIS Psychiatric: anxiety, depression, ALCOHOLISM Endocrine: NONE Blood Disorders: NONE Cancer(s): 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 Home Services at Home: None Primary Language: Greenlandic Smoking Status: Former Smoker Living Will? no Functional Ability ADLs Independent: dressing, eating, toileting, bathing. Ambulation: independent IADLs Independent: shopping, housework, finances, food prep, telephone, transportation , medication admin. Review of Systems Review of Systems: Estimated above or referred to earlier Exam & Diagnostic Data Vital Signs and I&O I reviewed Vital Signs Date Time Temp Pulse Resp B/P B/P Pulse O2 O2 Flow FiO2 Mean Ox Delivery Rate 02/10 1059 98 Room Air Room Air 02/10 1004 150/80 02/10 0620 98.4 65 18 134/86 95 Room Air 02/10 0000 Room Air I reviewed Intake & Output 02/10 1600 02/10 0800 02/10 0000 02/09 1600 02/09 0802/09 0000 Intake Total 360 400 850 240 360 Output Total 500 400 Balance 360 400 850 -260 -40 Intake, Oral 360 400 850 240 360 Number 1 2 1 Bowel Movements Output, Urine 500 400 Patient 146 lb Weight Physical Exam: Constitutional: pleasant, no acute distress, conversant Eyes: sclera anicteric ENMT: ears and nose atraumatic, moist mucous membranes, good dentition, no lip lesions Neck: Supple, trachea is midline, no cervical or supraclavicular adenopathy and no palpable thyromegaly Cardiovascular: S1, S2, no murmurs, no peripheral edema Respiratory: clear to auscultation with normal respiratory effort and no intercostal retractions GI: abdomen soft, nontender, nondistended, no palpable hepatosplenomegaly Extremities / lymphatics: symmetrically warm, free range of motion no peripheral edema, no cervical, supraclavicular, axillary, or inguinal adenopathy Picc left upper arm Musculoskeletal: Did not evaluate gait and station, no digital cyanosis, good muscle strength and tone no atrophy, motor grossly 5 out of 5 throughout Skin: no jaundice, no rashes warm, nondiaphoretic, no areas of erythema or induration Psychiatric: mood and affect are appropriate and alert and oriented to person place and time Last 24 Hours of Labs: I reviewed Assessment/Plan Assessment/Plan In part because of waning peripheral access, needs Port-A-Cath for adjuvant therapy, will place an OR, preferably MAC/sedation. Discussed risks of insertion (fercho diagram, how life-threatening hemo / pneumo, infection / clot, why use fluoro / MAC), maintenance during therapy; (those qualified for Devlin needle, flushing, clot / PE, infection, moves, malfunctions) and removal (timeliness to avoid clot / infection complications, usually done in office). And also discussed added risk of bleeding 2ary to meds, and overall immunocompromised state. Problem List: 1. Multiple myeloma 2. Hypoxia Consult Acknowledgment - Thank you for your consult request.
== END 2018-02-10 11:35 | DRG 202 ==
LOC: ERH 09:44 → ERHI 11:09 → 2NA 11:09 → EDBEDREQ 12:55 → ENRESERV 13:03 → ENTRNSPT 13:27 → CRI 13:29 → EDTRNSPTSTS 13:34 → EDTRNSPT 13:34 → CRI 13:37 → CMPTRNSPT 13:50 → ENTRNSPT 02-08 18:14 → EDTRNSPT 02-08 18:19 → EDTRNSPTSTS 02-08 18:19 → 2NA 02-08 18:31 → CMPTRNSPT 02-08 18:36 → ENPENDDIS 02-10 10:33 → ENTRNSPT 02-10 11:29 → 2NA 02-10 11:35 → EDTRNSPTSTS 02-10 12:01 → EDTRNSPT 02-10 12:01 → CMPTRNSPT 02-10 12:03
PROVIDERS: Emergency Medicine; Internal Medicine
PROC: 5A09357 Assistance with Respiratory Ventilation, Less than 24 Consecutive Hours, Continuous Positive Airway Pressure (ICD-10-PCS; principal; 2018-02-07)
PROC: 30233N1 Transfusion of Nonautologous Red Blood Cells into Peripheral Vein, Percutaneous Approach (ICD-10-PCS; 2018-02-08)
DX: J98.01 Acute bronchospasm (principal); J96.01 Acute respiratory failure with hypoxia; J96.02 Acute respiratory failure with hypercapnia; C90.00 Multiple myeloma not having achieved remission; I10 Essential (primary) hypertension; F32.9 Major depressive disorder, single episode, unspecified; F41.9 Anxiety disorder, unspecified; E87.5 Hyperkalemia; F10.11 Alcohol abuse, in remission; Z87.311 Personal history of (healed) other pathological fracture; D64.9 Anemia, unspecified; Z92.21 Personal history of antineoplastic chemotherapy; Z88.5 Allergy status to narcotic agent; Z79.891 Long term (current) use of opiate analgesic; Z79.51 Long term (current) use of inhaled steroids; M54.9 Dorsalgia, unspecified
CPT/HCPCS: 2NAP; CCU; 36415; 36592; 71045; 82436; 87040; 87449; 87450; 93005; 93010; 93306; 93970; 96374; 96375; 99291; J0456; J0696; J1650; J1940; J2920; J2930; J2997; J3490; J7040

== ENCOUNTER → 2018-02-15 | Day surgery (SDC) | payer OTHER ==
[~2018-02-15] VITALS: Ht 149.9 cm; Wt 63.5 kg
[~2018-02-15] MED LIST changes: +GABAPENTIN600 M1 PO; +SENNA S TABLET1 EACH PO
--- NOTE | 2018-02-15 14:29 | RADIOLOGY REPORT ---
EXAMINATION: Intraoperative fluoroscopy CLINICAL INFORMATION: Intraoperative Port-A-Cath insertion COMPARISON: Chest x-ray 02/07/2018 TECHNIQUE: Intraoperative fluoroscopy was provided for use by Dr. Hansen. A total of 2 images were saved to PACS. Radiologist was not present during today's procedure. TOTAL FLUOROSCOPIC TIME: 2.4 seconds FINDINGS\E\IMPRESSION: Intraoperative fluoroscopy provided for use by Dr. Hansen. Please see operative note for detailed findings.
--- NOTE | 2018-02-15 15:02 | RADIOLOGY REPORT ---
EXAMINATION: XR PORTABLE CHEST CLINICAL INFORMATION: Port placement COMPARISON: Same day intraoperative fluoroscopy and chest x-ray 02/07/2018 TECHNIQUE: Portable frontal view of the chest was obtained. FINDINGS: Interval placement of right-sided subclavicular Port-A-Cath with the tip terminating within the proximal right atrium. No pneumothorax. Stable positioning of left-sided PICC line with tip terminating within the SVC. Lungs are adequately aerated. No lobar consolidation. No gross pleural effusion. Degenerative changes of the shoulders, right more prominent than left. IMPRESSION: No pneumothorax status post right-sided Port-A-Cath placement.
--- NOTE | 2018-02-15 15:31 | Operative Report ---
Operative/Inv Procedure Report Surgery Date: 02/15/18 Name of Procedure: Fluoroscopic guided insertion of tunneled Port-A-Cath via right subclavian vein Pre-Operative Diagnosis: Multiple myeloma, chemotherapy Post-Operative Diagnosis: Same Estimated Blood Loss: scant Surgeon/Triage Technician: Jade NORRIS,Josesito Mccrary Anesthesia: local monitored anesthesi Operative/Procedure Note Note: With the patient supine on the OR table, right arm tucked, head not turned, after induction of MAC sedation, the patient's right subclavian area, including the shoulder neck and contralateral chest, were prepped and draped in the usual sterile fashion. After injecting local anesthetic in the right infraclavicular area, skin, subcutaneous to the clavicle, and inferiorly where the pocket will be, the patient was repositioned to Trendelenburg. Putting your right index finger on the sternal notch and thumb pressing down lateral to the curve of the clavicle, I made a puncture through the skin with the 15 blade scalpel next to thumb. Then along that line towards the tip of your finger, advance a large- bore needle, bevel towards the feet, on a slip tip 10 mL syringe barrel flat against the deltoid, advancing to bone and then "walking" it down just under the clavicle keeping the needle flat as possible, while maintaining vacuum with the plunger, accessing the subclavian venous blood, then replacing the syringe with a wire, sliding in with minimum resistance, confirming the position with the C- arm fluoroscope, making sure the wire is traveling down along the cava towards the right side of the heart and not up or across, and no ectopy. Next I secured the wire to the drape, measured (approximately 23 cm), cut and attached the catheter to the port. Approximately 3-4 cm inferior to the stick site a 2-1/2 cm long skin incision was made with a 15 blade scalpel along Langers lines. It was deepened with cautery and a space was developed inferiorly under the subcutaneous layer. The Port-A-Cath was laid in there and secured in [address] with 2-0 Prolene through the holes in the port, the sutures were kept loose on snaps at this point. Next the catheter was tunneled up subcutaneously with a snap and brought out through the stick site next to the wire. Then the dilator only, was passed over the wire until you could feel it slide under the clavicle, then removed, then re-advanced this time with the peel-away sheath over it, while advancing simultaneously pull the dilator out and advance the sheath, eventually pulling out the dilator and wire completely. Then the catheter was put into the sheath as far as it'll go then while holding that knuckle down with DeBakey's, gently peel-away the sheath with your speech language pathology assistant. Now the correct position of the catheter was confirmed with the fluoroscope, using a Devlin needle and heparinized saline solution, the catheter was first aspirated then flushed with approximately 3 mL's, with minimal resistance. The patient was repositioned to neutral, after tying down the 2 Prolenes, the larger incision was closed in layers, 3-0 Vicryl deep and 4-0 subcuticular Monocryl for the skin, and one subcuticular Monocryl for the stick site. Both areas were covered with Mastisol Steri-Strips Telfa and Tegaderm. Chest x-ray was ordered to be done in the recovery room. Lap and sponge counts were correct. Wound expectancy was clean, IV fluids crystalloid, complications none, patient tolerated the procedure well was awakened and returned to the recovery room in satisfactory condition.
== END ==
LOC: STS 03:25
DX: C90.00 Multiple myeloma not having achieved remission (principal); I10 Essential (primary) hypertension; J43.9 Emphysema, unspecified; K56.609 Unspecified intestinal obstruction, unspecified as to partial versus complete obstruction; K70.10 Alcoholic hepatitis without ascites
CPT/HCPCS: 71045; 93005; 93010; C1751; J0690; J1644; J2250